=== PATIENT | male | born 1980 | race Two or more races ===

== ENCOUNTER 2024-05-11 13:29 | Inpatient (IN) | payer OTHER ==
[~2024-05-11] VITALS: Ht 180.3 cm; Wt 107.9 kg
--- NOTE | 2024-05-11 15:48 | DVH ---
CHEST RADIOGRAPH Indication: Shortness a breath Technique: Single frontal view of the chest was obtained Comparison: None FINDINGS: Lines and Tubes: None Lungs: No focal consolidation. Pleura: No effusion. No pneumothorax. Cardiomediastinal contours: Unremarkable Bones: No acute osseous abnormality. IMPRESSION: No acute cardiopulmonary disease.
--- NOTE | 2024-05-11 15:58 | DVH ---
Exam: CT CT AB PEL WO CON-NO ORAL OR IV History: Diffuse abdominal pain Comparison Study: None available at time of dictation. TECHNIQUE: Multidetector CT of the abdomen was performed from lung bases to pubic symphysis. Imaging was performed without IV contrast. Axial, coronal and sagittal multiplanar reformats were obtained fr om the axial data set by the technologist. Radiation Dose Information: CT Dose: CTDI volume is 19.57 mGy. Dose-length product is 1019.73 mGy*cm FINDINGS: Evaluation of solid organs is limited due to lack of intravenous contrast use. Findings: Lung Bases: No acute or significant lung base finding. Normal heart size. No pleural or pericardial effusion. Liver: The liver is normal in size. No focal lesions. Gallbladder and Biliary Tree: Gallbladder is surgically absent with metallic clips in the gallbladder fossa. Spleen: Unremarkable Pancreas: The pancreas is grossly normal in appearance. Adrenal Glands: Unremarkable Kidneys: Kidneys are grossly normal without calculi or hydronephrosis. Bladder: Grossly unremarkable for degree of distention. Bowel: The stomach is grossly normal in appearance. Scattered segmental regions of wall thickening th roughout the colon. The appendix is normal. Ascites: Absent Lymphadenopathy: Numerous prominent right lower quadrant lymph nodes. Abdominal Wall and Mesentery: Unremarkable. Vasculature: The visualized abdominal aorta is normal in size and caliber. Evaluation of abdominal a nd pelvic vessels is limited due to lack of intravenous contrast. Pelvic Organs: Unremarkable Musculoskeletal: No aggressive focal bony lesions, acute fractures or dislocation. Soft tissues: Unremarkable IMPRESSION: 1. Scattered regions of segmental wall thickening throughout the colon. May be due to colitis versus incomplete distention. 2. Prominent right lower quadrant lymph nodes, could be reactive to previously questioned colitis, or could represent mesenteric adenitis. 3. Normal appendix. 4. Status post cholecystectomy. Radiation optimization: All CT scans at this facility use at least one of these dose optimization te chniques: automated exposure control mA and/or kV adjustment per patient size (includes targeted exa ms where dose is matched to clinical indication) or iterative reconstruction. HS:Y
[2024-05-11 16:00] LABS: Hematocrit 42.7 % (41.0-53.0); Hemoglobin 15.2 g/dL (13.5-17.5); Mean Corpuscular Hgb Conc. 35.6 g/dL (32.0-36.0); Mean Corpuscular Volume 87.2 fL (80.0-100.0); Platelet Count (auto) 82 10^3/uL (140-450); Red Cell Distribution Width 13.7 % (11.8-14.3); White Blood Cell 27.6 10^3/uL (4.4-10.8)
[2024-05-11 16:04] LABS: Basophils % (manual) 0 (0.0-2.0); Blast Cells 0; Eosinophils % (manual) 0 (0-7); Myelocytes % 0; Promyelocytes % 0; Reactive Lymphocytes 0
[2024-05-11] MEDS: ONDANSETRON ODT 4 MG TAB PO ONE (16:08)
[2024-05-11] MEDS: DICYCLOMINE HCL (10MG/ML) 2 ML AMPULE IM ONE (16:09)
[2024-05-11 16:22] LABS: Alanine Aminotransferase 73 U/L (7-40); Albumin 4.7 g/dL (3.2-4.8); Alkaline Phosphatase 79 U/L (46-116); Anion Gap 10 (5-15); Aspartate Aminotransferase 56 U/L (13-40); BUN/Creatinine Ratio 10.4 (10.0-20.0); Bilirubin, Total 0.7 mg/dL (0.2-1.0); Blood Urea Nitrogen 11 mg/dL (9-23); Calcium 9.7 mg/dL (8.7-10.4); Carbon Dioxide 21 mmol/L (20-31); Chloride 107 mmol/L (98-107); Glucose 86 mg/dL (74-106); Lipase 28 U/L (12-53); Potassium 4.2 mmol/L (3.5-5.1); Sodium 138 mmol/L (136-145)
[2024-05-11 16:23] LABS: Total Protein 7.3 g/dL (5.7-8.2)
[2024-05-11 17:12] LABS: Band Neutrophils % (manual) 8; Large Platelets FEW; Lymphocytes % (manual) 16 (10.0-50.0); Metamyelocytes % 2; Monocytes % (manual) 58 (0-12); Platelet Estimate Decrea
[2024-05-11 19:45] LABS: Urine Bacteria None Seen /hpf (None Seen)
[2024-05-11 19:56] LABS: Urine Blood Negative /uL (Negative); Urine Clarity Clear (Clear); Urine Color Yellow (Yellow); Urine Protein, UAD TRACE (Negative); Urine Specific Gravity 1.014 (1.001-1.035); Urine Urobilinogen Normal (Negative); Urine WBC 4 /hpf (0 - 3); Urine pH 5.5 (5.0-9.0)
--- NOTE | 2024-05-11 20:39 | ED.PDOC ---
GI ASSESSMENT HPI Comments This patient is a obese 44-year-old male who arrives to the ED today for evaluation of abdominal pain and shortness a breath concerns for past week. Patient states he was seen at another facility five days ago and diagnosed with a gastritis and sent home with antibiotics. Patient states he has been using the antibiotics as directed but his symptoms have not improved. Patient arrives presenting in moderate pain. Patient denies any fever or vomiting, but states intermittent nausea. Patient's vital signs were stable on arrival. Chief Complaint: General Weakness Time Seen by MD: 15:03 Reviewed Notes: Nurses Notes Allergies: Coded Allergies: NO KNOWN ALLERGIES (Unverified , 05/11/24) Information Source: Patient Mode of Arrival: Ambulatory Timing: Days Duration: Since onset Prehospital treatment: Treatment Quality: Aching, Cramping, Sharp Severity: Severe Recent: Other (Diagnosed with a gastritis) Recent Hx of: Other (Gastritis) Pain Location: Diffuse, Epigastric, Periumbilical Associated sign and symptoms: Nausea, Abdominal Pain Past Medical History PAST MEDICAL HISTORY: Denies Surgical History: Denies all surgeries Family History Family History: Reviewed,noncontributory to illness, No family hx of Cancer, No family hx of DM, No family hx of Heart ulises, No family hx of HTN, No family hx ofKidney ulises, No family hx of Liver ulises, No family hx of Lung ulises, No family hx of Stroke Social History Smoker: Non-Smoker Alcohol: Denies ETOH Use Drugs: Denies Drug Use Lives In: Home Constitutional: denies: chills, diaphoresis, fatigue, fever, malaise, sweats, weakness, others EENTM: denies: blurred vision, double vision, ear bleeding, ear discharge, ear drainage, ear pain, ear ringing, eye pain, eye redness, hearing loss, mouth pain, mouth swelling, nasal discharge, nose bleeding, nose congestion, nose pain, photophobia, tearing, throat pain, throat swelling, voice changes, others Respiratory: reports: shortness of breath; denies: cough, hemoptysis, orthopnea, SOB at rest, SOB with excertion, stridor, wheezing, others Cardiovascular: denies: chest pain, dizzy spells, diaphoresis, Dyspnea on exer tion, edema, irregular heart beat, left arm pain, lightheadedness, palpitations, PND, syncope, others Gastrointestinal: reports: abdominal pain, nausea; denies: abdomen distended, blood streaked bowels, constipated, diarrhea, dysphagia, difficulty swallowing, hematemesis, melena, poor appetite, poor fluid intake, rectal bleeding, rectal pain, vomiting, others Genitourinary: denies: burning, dysuria, flank pain, frequency, hematuria, incontinence, penile discharge, penile sore, pain, testicle pain, testicle swelling, urgency, others Neurological: denies: dizziness, fainting, headache, left sided numbness, left sided weakness, numbness, paresthesia, pre-existing deficit, right sided numbness, right sided weakness, seizure, speech problems, tingling, tremors, weakness, others Musculoskeletal: denies: back pain, gout, joint pain, joint swelling, muscle pain, muscle stiffness, neck pain, others Integumetry: denies: bruises, change in color, change in hair/nails, dryness, laceration, lesions, lumps, rash, wounds, others Allergic/Immunocompromised: denies: Difficulty Healing, Frequent Infections, Hives, Itching, others Hematologic/Lymphatic: denies: anemia, blood clots, easy bleeding, easy bruising, swollen glands, others Endocrine: denies: excessive hunger, excessive sweating, excessive thirst, excessive urination, flushing, intolerance to cold, intolerance to heat, unexplained weight gain, unexplained weight loss, others Psychiatric: denies: anxiety, bipolar disorder, depression, hopeless, panic disorder, schizophrenia, sleepless, suicidal, others Physical Exam General Appearance: Moderate Distress (Moderate distress due to abdominal pain concerns.), Obese HEENT: Normal ENT Inspection, Pharynx Normal, TMs Normal Neck: Full Range of Motion, Non-Tender, Normal, Normal Inspection Respiratory: Chest Non-Tender, Lungs Clear, No Accessory Muscle Use, No Respiratory Distress, Normal Breath Sounds, Other (Auscultation bilateral lung escalera was unremarkable.) Cardiovascular: No Edema, No JVD, No Murmur, No Gallop, Normal Peripheral Pulses, Regular Rate/Rhythm Breast Exam: Deferred Gastrointestinal: Other (Diffuse periumbilical and epigastric tenderness to palpation throughout. No pulsatile masses noted. No signs of trauma. Abdomen was mildly rigid.) Genitalia: Deferred Pelvic: Deferred Rectal: Deferred Extremities: No calf tenderness, Normal capillary refill, Normal inspection, Normal range of motion, Non-tender, No pedal edema Neurologic: Alert, No Motor Deficits, Normal Affect, Normal Mood, No Sensory Deficits Cerebellar Function: Normal Reflexes: Normal Skin: Dry, Normal Color, Warm Lymphatic: No Adenopathy Was a procedure done? Was a procedure done?: No GI differential Dx Differential Diagnosis: Bowel Obstruction, Cholangitis, Cholecystitis, Constipation, Gastritis/PUD, Gastroenteritis, Pancreatitis, UTI X-Ray, Labs, Meds, VS Vital Signs Date Time Temp Pulse Resp B/P (MAP) Pulse Ox O2 Delivery O2 Flow Rate FiO2 05/11/24 16:46 96 18 98 Room Air 05/11/24 16:46 98.0 96 19 143/89 (107) 98 98.0 05/11/24 13:51 97.0 93 20 140/91 (107) 98 Lab Test 05/11/24 19:20 05/11/24 14:40 Range/Units Urine Color Yellow Yellow Urine Clarity Clear Clear Urine pH 5.5 5.0-9.0 Urine Specific Mobile 1.014 1.001-1.035 Urine Protein Trace H Negative Urine Ketones 2+ H Negative Urine Blood Negative Negative /uL Urine Nitrite Negative Negative Urine Bilirubin Negative Negative Urine Urobilinogen Normal Negative mg/dL Urine Leukocyte Esterase Negative Negative /uL Urine RBC <1 0 - 3 /hpf Urine WBC 4 0 - 3 /hpf Urine Squamous Epithelial Cells Few <5 /hpf Urine Bacteria None seen None Seen /hpf Urine Glucose Normal Normal mg/dL White Blood Count 27.6 H 4.4-10.8 10^3/uL Red Blood Count 4.90 4.5-5.90 10^6/uL Hemoglobin 15.2 13.5-17.5 g/dL Hematocrit 42.7 41.0-53.0 % Mean Corpuscular Volume 87.2 80.0-100.0 fL Mean Corpuscular Hemoglobin 31.0 28.0-32.0 pg Mean Corpuscular Hemoglobin Concent 35.6 32.0-36.0 g/dL Red Cell Distribution Width 13.7 11.8-14.3 % Platelet Count 82 L 140-450 10^3/uL Mean Platelet Volume 8.8 6.9-10.8 fL Neutrophils (%) (Auto) 37.0-80.0 % Lymphocytes (%) (Auto) 10.0-50.0 % Monocytes (%) (Auto) 0.0-12.0 % Basophils (%) (Auto) 0.0-2.0 % Neutrophils # (Auto) 1.6-8.6 10 ^3/uL Lymphocytes # (Auto) 0.4-5.4 10 ^3/uL Monocytes # (Auto) 0-1.3 10 ^3/uL Differential Total Cells Counted 100.0 100 Neutrophils % (Manual) 16 L 37.0-80.0 Band Neutrophils % (Manual) 8 Lymphocytes % (Manual) 16 10.0-50.0 Monocytes % (Manual) 58 H 0-12 Eosinophils % (Manual) 0 0-7 Basophils % (Manual) 0 0.0-2.0 Metamyelocytes % (manual) 2 Myelocytes % (Manual) 0 Promyelocytes % (Manual) 0 Blast Cells % (Manual) 0 Reactive Lymphocytes 0 Platelet Estimate Decrea Large Platelets Few Sodium Level 138 136-145 mmol/L Potassium Level 4.2 3.5-5.1 mmol/L Chloride Level 107 98-107 mmol/L Carbon Dioxide Level 21 20-31 mmol/L Anion Gap 10 5-15 Blood Urea Nitrogen 11 9-23 mg/dL Creatinine 1.06 0.700-1.30 mg/dL Glomerular Filtration Rate Calc 89 >90 mL/min BUN/Creatinine Ratio 10.4 10.0-20.0 Serum Glucose 86 74-106 mg/dL Calcium Level 9.7 8.7-10.4 mg/dL Total Bilirubin 0.7 0.2-1.0 mg/dL Aspartate Amino Transferase (AST) 56 H 13-40 U/L Alanine Aminotransferase (ALT) 73 H 7-40 U/L Alkaline Phosphatase 79 46-116 U/L Troponin I High Sensitivity 6 </=54 ng/L B-Type Natriuretic Peptide 20.24 0-100 pg/mL Total Protein 7.3 5.7-8.2 g/dL Albumin 4.7 3.2-4.8 g/dL Lipase 28 12-53 U/L Current Medications Medications (Trade) Dose Ordered Sig/Kurt Route Start Time Stop Time Status Last Admin Dicyclomine HCl (Bentyl Injection) 20 mg ONCE ONCE IM 05/11/24 15:15 05/11/24 15:16 DC 05/11/24 16:09 Ondansetron HCl (Zofran Po) 4 mg ONCE ONCE PO 05/11/24 15:15 05/11/24 15:16 DC 05/11/24 16:08 X-Ray, Labs, Meds, VS Comment All studies performed in the ED were evaluated by me personally. EKG revealed a sinus rhythm with a rate of 82. Borderline short TN interval as well as left ventricular hypertrophy noted. TN interval of 110 and QT interval of 399. Serum laboratories remarkable [place] [address]+. Additionally noted was some thrombocytopenia. Chest x-ray was unremarkable for any acute cardiopulmonary process. No consolidation noted. CT of the abdomen and pelvis showed some segmental wall thickening throughout the colon which may be due to colitis. Additional prominent right lower quadrant lymph nodes which may represent a mesenteric adenitis. Due to the patient's on source pain concerns as well as his elevated white blood cell count and failure of the antibiotic of choice to be effective, patient will be admitted for IV antibiotics and continued management. Time of 1ST Reevaluation: 20:33 Reevaluation 1ST: Improved Consultation: PCP Patient Education/Counseling: Diagnosis, Treatment Family Education/Counseling: Diagnosis, Treatment Departure 1 Departure Time of Disposition: 20:38 Impression: Primary Impression: Leukocytosis Additional Impressions: Thrombocytopenia Abdominal pain Disposition: ADMITTED INPATIENT Condition: Stable Discharged With: Self, Friend Critical Care Note Critical Care Time?: No Stability Stability form required: No Heart Score Heart Score: Heart Score Response (Comments) Value History Slightly Suspicious 0 EKG Repolarization Disturb 1 Age <45 0 Risk Factors No known risk factors 0 Troponin Normal limit 0 Total 1 BRANDO MALDONADO PAC May 11, 2024 20:39
[2024-05-11 21:25] VITALS: PULSE 110; RESP 22; O2SAT 98
[2024-05-11] MEDS: ONDANSETRON HCL 4 MG/2 ML VIAL IV PRN (21:27)
[2024-05-11] MEDS: MORPHINE SULFATE INJ 2 MG/ml SYRG IV PRN (21:29)
[2024-05-11] MEDS: SODIUM CHLORIDE 0.9% 1,000 ML IV SCH (21:29)
[2024-05-11] MEDS: PIPERACILLIN-TAZOB 3.375GM 100 ML IV ONE (21:29)
[2024-05-11] MEDS: metroNIDAZOLE 500MG/100ML 100 ML IV SCH (22:07)
--- NOTE | 2024-05-11 22:57 | DVHHP2 ---
History of Present Illness Reason for Visit: Generalized weakness History of Present Illness The patient is a 44-year-old male who denies past medical history presented to [facility] ED with complaint of abdominal pain. Patient reports symptoms progressively get worse with generalized weakness, shortness of breath, nausea, getting worse today that prompted this visit. Patient reports he was seen at another facility five days ago and diagnosed with a gastritis and sent home with antibiotics. Patient states he has been on the antibiotics as directed but his symptoms have not improved. Patient was seen and evaluated in the ED, laboratory data shows elevated WBC 27.6, platelets 18656, sodium 138, potassium 4.2, BUN 11, creatinine 1.06, glucose 86, AST 56, ALT 73, troponin 6, lipase 28, blood pressure 143/89, heart rate 96, temperature 98.0 F, O2 saturation 98% on oxygen. Abdomen/pelvic CT revealing scattered regions of segmental wall thickening throughout the colon, may be due to colitis versus incomplete distention; status post cholecystectomy. Patient was started on IV antibiotic regimen Flagyl, please see medication orders section in the computer. On my assessment, patient denied chest pain, no headache, no dizziness, no diaphoresis, no shortness of breath, no abdominal pain, no nausea, no vomiting, no fever, no chills. Patient was admitted for further evaluation and medical management. Past Medical History Denies past medical history Past Surgical History Cholecystectomy Family History Reviewed, noncontributory to the management of this case. Past Social History The patient lives at home, denies smoking, alcohol or illicit drugs abuse. Review of Systems Constitutional: Yes: Weakness; No: Fever, Chills, Sweats, Malaise, Other Eyes: No: Pain, Vision change, Conjunctivae inflammation, Eyelid inflammation, Other, Redness ENT: No: Ear pain, Ear discharge, Nose pain, Nose discharge, Nose congestion, Mouth pain, Mouth swelling, Throat pain, Throat swelling, Other Respiratory: Shortness of breath; No: Cough, Dry, SOB with excertion, Wheezing, Hemoptysis, Pleuritic Pain, Sputum, Wheezing, Other Cardiovascular: No: Chest Pain, Palpitations, Orthopnea, Paroxysmal Noc. Dyspnea, Edema, Lt Headedness, Other Gastrointestinal: Nausea, Abdominal Pain; No: Vomiting, Diarrhea, Constipation, Melena, Hematochezia, Other Genitourinary: No Dysuria, No Frequency, No Incontinence, No Hematuria, No Retention, No Other Musculoskeletal: No: other, neck pain, shoulder pain, arm pain, back pain, hand pain, leg pain, foot pain Skin: No: Rash, Lesions, Jaundice, Bruising, Other Neurological: No: Weakness, Numbness, Incoordination, Change in speech, Confusion, Seizures, Other Allergies: Coded Allergies: NO KNOWN ALLERGIES (Unverified , 05/11/24) Medications Current Medications Medications Dose Ordered Sig/Kurt Route Start Time Stop Time Status Last Admin Dose Admin Ceftriaxone Sodium 50 ml @ 100 mls/hr DAILY@09 IV 05/12/24 09:00 Metronidazole 100 ml @ 100 mls/hr Q8HR IV 05/11/24 22:00 05/11/24 22:07 100 MLS/HR Ibuprofen 600 mg Q6HP PRN PO 05/11/24 21:00 Sodium Chloride 1,000 ml @ 60 mls/hr [id number] IV 05/11/24 21:00 05/11/24 21:29 60 MLS/HR Acetaminophen/ Hydrocodone Bitart 1 tab Q4HP PRN PO 05/11/24 21:00 Ondansetron HCl 4 mg Q4HP PRN IV 05/11/24 21:00 05/11/24 21:27 4 MG Docusate Sodium 100 mg BIDPRN PRN PO 05/11/24 21:00 Morphine Sulfate 2 mg Q4HPRN PRN IV 05/11/24 21:00 05/11/24 21:29 2 MG Exam Vital Signs Vital Signs Date Time Temp Pulse Resp B/P (MAP) Pulse Ox O2 Delivery O2 Flow Rate FiO2 05/11/24 22:07 88 20 143/89 05/11/24 21:25 98.6 98 98.6 05/11/24 21:25 Room Air* 0 21 General Appearance: Alert, Oriented X3, Cooperative, No acute distress HEENT: Atraumatic, PERRLA, EOMI, Mucous membr. moist/pink Respiratory: Clear to auscultation, Normal air movement Cardiovascular: Regular rate, Normal S1, Normal S2, No murmurs Abdominal: Normal bowel sounds, Soft, No hepatospenomegaly, No masses, Other (Reports tenderness) Extremities: No clubbing, No cyanosis, No edema, Normal pulses, No tenderness/swelling Skin: No rashes, No breakdown, No significant lesion Neuro: Normal speech, Normal tone, Sensation intact, Cranial nerves 3-12 NL, Reflexes 2+, Other (Generalized weakness) Psych/Mental Status: Mental status NL, Mood NL Labs/Xrays Labs Test 05/11/24 19:20 05/11/24 14:40 Range/Units Urine Color Yellow Yellow Urine Clarity Clear Clear Urine pH 5.5 5.0-9.0 Urine Specific [place] 1.014 1.001-1.035 Urine Protein Trace H Negative Urine Ketones 2+ H Negative Urine Blood Negative Negative /uL Urine Nitrite Negative Negative Urine Bilirubin Negative Negative Urine Urobilinogen Normal Negative mg/dL Urine Leukocyte Esterase Negative Negative /uL Urine RBC <1 0 - 3 /hpf Urine WBC 4 0 - 3 /hpf Urine Squamous Epithelial Cells Few <5 /hpf Urine Bacteria None seen None Seen /hpf Urine Glucose Normal Normal mg/dL White Blood Count 27.6 H 4.4-10.8 10^3/uL Red Blood Count 4.90 4.5-5.90 10^6/uL Hemoglobin 15.2 13.5-17.5 g/dL Hematocrit 42.7 41.0-53.0 % Mean Corpuscular Volume 87.2 80.0-100.0 fL Mean Corpuscular Hemoglobin 31.0 28.0-32.0 pg Mean Corpuscular Hemoglobin Concent 35.6 32.0-36.0 g/dL Red Cell Distribution Width 13.7 11.8-14.3 % Platelet Count 82 L 140-450 10^3/uL Mean Platelet Volume 8.8 6.9-10.8 fL Neutrophils (%) (Auto) 37.0-80.0 % Lymphocytes (%) (Auto) 10.0-50.0 % Monocytes (%) (Auto) 0.0-12.0 % Basophils (%) (Auto) 0.0-2.0 % Neutrophils # (Auto) 1.6-8.6 10 ^3/uL Lymphocytes # (Auto) 0.4-5.4 10 ^3/uL Monocytes # (Auto) 0-1.3 10 ^3/uL Differential Total Cells Counted 100.0 100 Neutrophils % (Manual) 16 L 37.0-80.0 Band Neutrophils % (Manual) 8 Lymphocytes % (Manual) 16 10.0-50.0 Monocytes % (Manual) 58 H 0-12 Eosinophils % (Manual) 0 0-7 Basophils % (Manual) 0 0.0-2.0 Metamyelocytes % (manual) 2 Myelocytes % (Manual) 0 Promyelocytes % (Manual) 0 Blast Cells % (Manual) 0 Reactive Lymphocytes 0 Platelet Estimate Decrea Large Platelets Few Sodium Level 138 136-145 mmol/L Potassium Level 4.2 3.5-5.1 mmol/L Chloride Level 107 98-107 mmol/L Carbon Dioxide Level 21 20-31 mmol/L Anion Gap 10 5-15 Blood Urea Nitrogen 11 9-23 mg/dL Creatinine 1.06 0.700-1.30 mg/dL Glomerular Filtration Rate Calc 89 >90 mL/min BUN/Creatinine Ratio 10.4 10.0-20.0 Serum Glucose 86 74-106 mg/dL Calcium Level 9.7 8.7-10.4 mg/dL Total Bilirubin 0.7 0.2-1.0 mg/dL Aspartate Amino Transferase (AST) 56 H 13-40 U/L Alanine Aminotransferase (ALT) 73 H 7-40 U/L Alkaline Phosphatase 79 46-116 U/L Troponin I High Sensitivity 6 </=54 ng/L B-Type Natriuretic Peptide 20.24 0-100 pg/mL Total Protein 7.3 5.7-8.2 g/dL Albumin 4.7 3.2-4.8 g/dL Lipase 28 12-53 U/L PATIENT: ROSA THORPEACCT: [id number] UNIT: [id number] : 1980 LOC: ER ROOM / BED: / AGE / SEX: 44 / M ADM STATUS: REG ER SERVICE 1509 ORDERING PHYSICIAN: BRANDO MALDONADO PAC PROCEDURE(s): ABPL - CT AB PEL WO CON-NO ORAL OR IV REASON: Diffuse abdominal pain ORDER NUMBER(s): [id number], ACCESSION NUMBER(s): [id number] Exam: CT CT AB PEL WO CON-NO ORAL OR IV History: Diffuse abdominal pain Comparison Study: None available at time of dictation. TECHNIQUE: Multidetector CT of the abdomen was performed from lung bases to pubic symphysis. Imaging was performed without IV contrast. Axial, coronal and sagittal multiplanar reformats were obtained from the axial data set by the technologist. Radiation Dose Information: CT Dose: CTDI volume is 19.57 mGy. Dose-length product is 1019.73 mGy*cm FINDINGS: Evaluation of solid organs is limited due to lack of intravenous contrast use. Findings: Lung Bases: No acute or significant lung base finding. Normal heart size. No ple ural or pericardial effusion. Liver: The liver is normal in size. No focal lesions. Gallbladder and Biliary Tree: Gallbladder is surgically absent with metallic clips in the gallbladder fossa. Spleen: Unremarkable Pancreas: The pancreas is grossly normal in appearance. Adrenal Glands: Unremarkable Kidneys: Kidneys are grossly normal without calculi or hydronephrosis. Bladder: Grossly unremarkable for degree of distention. Bowel: The stomach is grossly normal in appearance. Scattered segmental regions of wall thickening throughout the colon. The appendix is normal. Ascites: Absent Lymphadenopathy: Numerous prominent right lower quadrant lymph nodes. Abdominal Wall and Mesentery: Unremarkable. Vasculature: The visualized abdominal aorta is normal in size and caliber. Evaluation of abdominal and pelvic vessels is limited due to lack of intravenous contrast. Pelvic Organs: Unremarkable Musculoskeletal: No aggressive focal bony lesions, acute fractures or dislocation. Soft tissues: Unremarkable IMPRESSION: 1. Scattered regions of segmental wall thickening throughout the colon. May be due to colitis versus incomplete distention. 2. Prominent right lower quadrant lymph nodes, could be reactive to previously questioned colitis, or could represent mesenteric adenitis. 3. Normal appendix. 4. Status post cholecystectomy. ORDERING PHYSICIAN: BRANDO MALDONADO PAC PROCEDURE(s): CXRP - CHEST PORTABLE REASON: Shortness a breath ORDER NUMBER(s): [id number], ACCESSION NUMBER(s): [id number] CHEST RADIOGRAPH Indication: Shortness a breath Technique: Single frontal view of the chest was obtained Comparison: None FINDINGS: Lines and Tubes: None Lungs: No focal consolidation. Pleura: No effusion. No pneumothorax. Cardiomediastinal contours: Unremarkable Bones: No acute osseous abnormality. IMPRESSION: No acute cardiopulmonary disease. Assessment/Plan Assessment/Plan Leukocytosis, unspecified Thrombocytopenia Abdominal pain Generalized weakness Plan 1. Admit to med surge unit 2. Breathing treatment 3. Pain control management 4. IV antibiotic management 5. Management of fluids and electrolytes 6. Consultation for hospitalist 7. Diagnostic test abdomen/pelvis CT 8. DVT prophylaxis-on SCDs 9. Repeat labs CBC, CMP in a.m. 10. Home medication reviewed and reconciled 11. Continue with current medical management 12. Treatment plan discussed with patient and RN. Patient verbalized understanding. Plan discussed with: Patient, Other (RN) My Orders Orders - SERA SPICER DNP Procedure Category Date Status Time Blood Culture CHIQUITA 05/11/24 In Process 20:49 Ceftriaxone 1gm/50ml PHA 05/12/24 In Process D5w (Rocephin) 09:00 Ibuprofen Tablet PHA 05/11/24 In Process (Motrin Tablet) 21:00 Allergies ESTEFANY 05/11/24 In Process 20:49 Code Status CODE 05/11/24 Transmitted 20:49 Sodium Chloride 0.9% PHA 05/11/24 In Process 21:00 Oxygen Per Hour RT 05/11/24 Transmitted 20:49 Hydrocodone-Acet PHA 05/11/24 In Process 5/325mg Tab ([place] 21:00 Ondansetron Hcl PHA 05/11/24 In Process (Zofran) 21:00 Docusate Sodium PHA 05/11/24 In Process Capsule (Colace 21:00 Complete Blood Count LAB 05/12/24 Verified 04:00 Comprehensive LAB 05/12/24 Verified Metabolic Panel 04:00 Cardiac DIET 05/12/24 Transmitted Diet-2gna,Lofat,Lochol Breakfast Condition: Serious ESTEFANY 05/11/24 In Process 20:49 Bedrest With Bathroom ESTEFANY 05/11/24 In Process Privileg 20:49 Morphine Sulfate PHA 05/11/24 In Process Injection 21:00 Sequential ESTEFANY 05/11/24 In Process Compression Device Metronidazole PHA 05/11/24 In Process 500mg/100ml (Flagyl 22:00 Admit ADMIT 05/11/24 Verified 22:54 Nitroglycerin PHA 05/11/24 Verified Sublingual (Ntrostat 23:00 Morphine Sulfate PHA 05/11/24 Verified Injection 23:00 Notify Of Changes ESTEFANY 05/11/24 Verified From Base 22:54 Emergency Dysrhythmia ESTEFANY 05/11/24 Verified Protocol 22:54 Oxygen By Nasal RT 05/11/24 Verified Cannula 22:54 Problem List: (1) Leukocytosis, unspecified (2) Abdominal pain (3) Thrombocytopenia (4) Generalized weakness Date of Service: May 11, 2024 Billing Provider: SERA SPICER DNP Common Visit Codes: [id number] INP/OBS CARE (HIGH) SERA SPICER DNP May 11, 2024 22:57
[2024-05-11] MEDS ORDERED: MORPHINE SULFATE INJ 2 MG/ml SYRG IV PRN (23:00)
[2024-05-11] MEDS ORDERED: NITROGLYCERIN 0.4 MG SL TAB SL PRN (23:00)
[2024-05-12] VITALS (10 sets, daily range): BP systolic 105–128; BP diastolic 55–78; PULSE 71–86; RESP 18–22; TEMP 97.6–98.7; O2SAT 94–99
[2024-05-12] MEDS: HYDROcodone-ACET 5/325MG TAB PO PRN (03:49)
[2024-05-12] MEDS ORDERED: IBUP-1454 PO (06:11)
[2024-05-12] MEDS ORDERED: AMOX875T4 PO (06:13)
--- NOTE | 2024-05-12 06:45 | ECG ---
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
[2024-05-12] MEDS: cefTRIAXone 1GM/50ML D5W 50 ML IV SCH (09:22)
[2024-05-12 09:30] LABS: Hematocrit 43.5 % (41.0-53.0); Mean Corpuscular Hgb Conc. 34.4 g/dL (32.0-36.0); Platelet Count (auto) 65 10^3/uL (140-450); White Blood Cell 19.6 10^3/uL (4.4-10.8)
[2024-05-12 09:37] LABS: Alanine Aminotransferase 122 U/L (7-40); Albumin 4.3 g/dL (3.2-4.8); Alkaline Phosphatase 107 U/L (46-116); Anion Gap 8 (5-15); Aspartate Aminotransferase 85 U/L (13-40); BUN/Creatinine Ratio 6.3 (10.0-20.0); Blood Urea Nitrogen 8 mg/dL (9-23); Calcium 9.3 mg/dL (8.7-10.4); Carbon Dioxide 22 mmol/L (20-31); Chloride 110 mmol/L (98-107); Glucose 120 mg/dL (74-106); Sodium 140 mmol/L (136-145)
[2024-05-12 09:38] LABS: Bilirubin, Total 0.6 mg/dL (0.2-1.0); Total Protein 7.1 g/dL (5.7-8.2)
[2024-05-12 09:51] LABS: Basophils % (manual) 0 (0.0-2.0); Blast Cells 0; Metamyelocytes % 0; Myelocytes % 0; Promyelocytes % 0; Reactive Lymphocytes 0
[2024-05-12 11:46] LABS: Band Neutrophils % (manual) 3; Eosinophils % (manual) 2 (0-7); Lymphocytes % (manual) 17 (10.0-50.0); Monocytes % (manual) 60 (0-12)
[2024-05-12 11:47] LABS: Platelet Estimate Decreased
--- NOTE | 2024-05-12 13:05 | DVHPN2 ---
Reviewed: Care Plan, H&P, Labs, Medications, Previous Orders, Radiology Changes from previous H/P or p: No Changes Eyes: No Pain, No Vision change, No Conjunctivae inflammation, No Eyelid inflammation, No Other, No Redness ENT: No Ear pain, No Ear discharge, No Nose pain, No Nose discharge, No Nose congestion, No Mouth pain, No Mouth swelling, No Throat pain, No Throat swelling, No Other Cardiovascular: No Chest Pain, No Palpitations, No Orthopnea, No Paroxysmal Noc. Dyspnea, No Edema, No Lt Headedness, No Other Respiratory: No Cough, No Dry; Shortness of breath; No SOB with excertion, No Wheezing, No Hemoptysis, No Pleuritic Pain, No Sputum, No Other Gastrointestinal: Nausea; No Vomiting; Abdominal Pain; No Diarrhea, No Constipation, No Melena, No Hematochezia, No Other Genitourinary: No Dysuria, No Frequency, No Incontinence, No Hematuria, No Retention, No Other Musculoskeletal: No other, No neck pain, No shoulder pain, No arm pain, No back pain, No hand pain, No leg pain, No foot pain Skin: No Rash, No Lesions, No Jaundice, No Bruising, No Other Objective Vitals Vital Signs Date Time Temp Pulse Resp B/P (MAP) Pulse Ox O2 Delivery O2 Flow Rate FiO2 05/12/24 11: 79 18 128/59 05/12/24 09:00 98.7 94 98.7 05/12/24 03:16 Room Air* 0 21 Intake/Output Intake and Output 05/12/24 07:00 Intake Total 780 ml Balance 780 ml Intake Oral 400 ml IV Total 380 ml # Voids 1 Medications Current Medications Medications Dose Ordered Sig/Kurt Route Start Time Stop Time Status Last Admin Dose Admin Ceftriaxone Sodium 50 ml @ 100 mls/hr DAILY@09 IV 05/12/24 09:00 05/12/24 09:22 100 MLS/HR Metronidazole 100 ml @ 100 mls/hr Q8HR IV 05/11/24 22:00 05/12/24 06:31 100 MLS/HR Ibuprofen 600 mg Q6HP PRN PO 05/11/24 21:00 Sodium Chloride 1,000 ml @ 60 mls/hr [id number] IV 05/11/24 21:00 05/12/24 04:04 60 MLS/HR Acetaminophen/ Hydrocodone Bitart 1 tab Q4HP PRN PO 05/11/24 21:00 05/12/24 08:55 1 TAB Ondansetron HCl 4 mg Q4HP PRN IV 05/11/24 21:00 05/11/24 21:27 4 MG Docusate Sodium 100 mg BIDPRN PRN PO 05/11/24 21:00 Morphine Sulfate 2 mg Q4HPRN PRN IV 05/11/24 21:00 05/12/24 11:22 2 MG Nitroglycerin 0.4 mg Q5MINP PRN SL 05/11/24 23:00 Morphine Sulfate 2 mg Q30M PRN IV 05/11/24 23:00 Laboratory Results Laboratory Tests 05/12/24 08:54 Chemistry Test 05/11/24 14:40 05/12/24 08:54 Albumin 4.7 g/dL (3.2-4.8) 4.3 g/dL (3.2-4.8) Calcium Level 9.7 mg/dL (8.7-10.4) 9.3 mg/dL (8.7-10.4) Total Protein 7.3 g/dL (5.7-8.2) 7.1 g/dL (5.7-8.2) Lipid panel Test 05/11/24 14:40 Lipase 28 U/L (12-53) Cardiac Markers Test 05/11/24 14:40 B-Type Natriuretic Peptide 20.24 pg/mL (0-100) LFT Test 05/11/24 14:40 05/12/24 08:54 Alanine Aminotransferase (ALT) 73 U/L (7-40) H 122 U/L (7-40) H Alkaline Phosphatase 79 U/L (46-116) 107 U/L (46-116) Aspartate Amino Transferase (AST) 56 U/L (13-40) H 85 U/L (13-40) H Total Bilirubin 0.7 mg/dL (0.2-1.0) 0.6 mg/dL (0.2-1.0) Urinalysis Test 05/11/24 19:20 Urine Color Yellow (Yellow) Urine Clarity Clear (Clear) Urine pH 5.5 (5.0-9.0) Urine Specific [place] 1.014 (1.001-1.035) Urine Protein Trace (Negative) H Urine Ketones 2+ (Negative) H Urine Blood Negative /uL (Negative) Urine Nitrite Negative (Negative) Urine Bilirubin Negative (Negative) Urine Urobilinogen Normal mg/dL (Negative) Urine Leukocyte Esterase Negative /uL (Negative) Urine RBC <1 /hpf (0 - 3) Urine WBC 4 /hpf (0 - 3) Urine Squamous Epithelial Cells Few /hpf (<5) Urine Bacteria None seen /hpf (None Seen) Urine Glucose Normal mg/dL (Normal) Labs and/or images reviewed: Labs reviewed by me, Image(s) reviewed by me Assessment/Plan Assessment/Plan Severe Sepsis secondary to acute colitis blood cultures Acute Colitis: [place], GI consult by Dr. 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
--- NOTE | 2024-05-12 16:48 | DVHINCON2 ---
Date of service: May 12, [address] holland Reason for Consultation Abdominal pain diarrhea possible colitis History of Present Illness This 44-year-old male presented to the emergency room with complaints of abdominal pain in both lower quadrants severe back pain generalized weakness and diarrhea Denied any gross GI bleeding Patient was apparently seen about two weeks ago at [facility] ER for back pain of the abdominal pain and had apparently CT scan was done which showed possible colitis the details of which is not available And was sent home on antibiotics amoxicillin as per the patient for seven days. Patient fell better for couple of days after amoxicillin but then got worse apparently with severe diarrhea and abdominal cramps and hence came to this hospital Here the white count was found to be high 27.[place] [address] ALT and AST are slightly increased. 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 Family History Noncontributory Social History Noncontributory Allergies: Coded Allergies: NO KNOWN ALLERGIES (Unverified , 05/11/24) Home Meds Reported Medications Amoxicillin & Pot Clavulanate (Amoxicillin/Potassium Cla) 875 Mg Tab, 1 TAB PO BID, #20 TAB 05/12/24 Ibuprofen (Ibuprofen) 600 Mg Tab, 600 MG PO Q6HP PRN for PAIN SCALE 7 THRU 10, MG 0 Refills 05/12/24 Current Medications Current Medications Medications (Trade) Dose Ordered Sig/Kurt Route PRN Reason Start Time Stop Time Status Last Admin Ceftriaxone Sodium 50 ml @ 100 mls/hr DAILY@09 IV 05/12/24 09:00 05/12/24 09:22 Metronidazole 100 ml @ 100 mls/hr Q8HR IV 05/11/24 22:00 05/12/24 13:53 Ibuprofen (Motrin Tablet) 600 mg Q6HP PRN PO PAIN SCALE 1-3 OR TEMP>100.4 05/11/24 21:00 Sodium Chloride 1,000 ml @ 60 mls/hr [id number] IV 05/11/24 21:00 05/12/24 04:04 Acetaminophen/ Hydrocodone Bitart ([place] 5/325MG Tab) 1 tab Q4HP PRN PO MODERATE PAIN (4-6 PAIN SCALE) 05/11/24 21:00 05/12/24 13:54 Ondansetron HCl (Zofran) 4 mg Q4HP PRN IV NAUSEA / VOMITING 05/11/24 21:00 05/11/24 21:27 Docusate Sodium (Colace Capsule) 100 mg BIDPRN PRN PO FOR CONSTIPATION 05/11/24 21:00 Morphine Sulfate 2 mg Q4HPRN PRN IV SEVERE PAIN (7-10 PAIN SCALE) 05/11/24 21:00 05/12/24 11:22 Nitroglycerin (Ntrostat Sublingual) 0.4 mg Q5MINP PRN SL FOR CHEST PAIN 05/11/24 23:00 Morphine Sulfate 2 mg Q30M PRN IV FOR CHEST PAIN 05/11/24 23:00 Bisacodyl (Dulcolax EC Tablet) 5 mg BIDP PRN PO FOR CONSTIPATION 05/12/24 15:15 Review of Systems Complaints of back pain body pain generalized body pains weakness etc. no fever or other systemic symptoms nausea anorexia Vital Signs Vital Signs Date Time Temp Pulse Resp B/P (MAP) Pulse Ox O2 Delivery O2 Flow Rate FiO2 05/12/24 13:00 98.6 86 19 119/78 (92) 97 98.6 05/12/24 03:16 Room Air* 0 21 Physical Exam Built and nourished male in no acute distress very apprehensive vital signs stable HEENT examination reveals no pallor no icterus neck was supplenothyromegaly Lungs clear cardiovascular unremarkable Abdomen is soft mild nonspecific tenderness in both lower quadrants no rigidity no guarding no masses bowel sounds normal Some tenderness in the back also nonspecific Extremities no edema neurological no focal deficit Labs/Diagnostic Data Labs Test 05/12/24 08:54 05/11/24 19:20 05/11/24 14:40 Range/Units White Blood Count 19.6 #H 4.4-10.8 10^3/uL Red Blood Count 5.00 4.5-5.90 10^6/uL Hemoglobin 15.0 13.5-17.5 g/dL Hematocrit 43.5 41.0-53.0 % Mean Corpuscular Volume 87.0 80.0-100.0 fL Mean Corpuscular Hemoglobin 30.0 28.0-32.0 pg Mean Corpuscular Hemoglobin Concent 34.4 32.0-36.0 g/dL Red Cell Distribution Width 14.0 11.8-14.3 % Platelet Count 65 L 140-450 10^3/uL Mean Platelet Volume 8.4 6.9-10.8 fL Neutrophils (%) (Auto) 37.0-80.0 % Lymphocytes (%) (Auto) 10.0-50.0 % Monocytes (%) (Auto) 0.0-12.0 % Basophils (%) (Auto) 0.0-2.0 % Neutrophils # (Auto) 1.6-8.6 10 ^3/uL Lymphocytes # (Auto) 0.4-5.4 10 ^3/uL Monocytes # (Auto) 0-1.3 10 ^3/uL Differential Total Cells Counted 100.0 100 Neutrophils % (Manual) 18 L 37.0-80.0 Band Neutrophils % (Manual) 3 Lymphocytes % (Manual) 17 10.0-50.0 Monocytes % (Manual) 60 H 0-12 Eosinophils % (Manual) 2 0-7 Basophils % (Manual) 0 0.0-2.0 Metamyelocytes % (manual) 0 Myelocytes % (Manual) 0 Promyelocytes % (Manual) 0 Blast Cells % (Manual) 0 Reactive Lymphocytes 0 Platelet Estimate Decreased Sodium Level 140 136-145 mmol/L Potassium Level 4.0 3.5-5.1 mmol/L Chloride Level 110 H 98-107 mmol/L Carbon Dioxide Level 22 20-31 mmol/L Anion Gap 8 5-15 Blood Urea Nitrogen 8 L 9-23 mg/dL Creatinine 1.26 0.700-1.30 mg/dL Glomerular Filtration Rate Calc 73 >90 mL/min BUN/Creatinine Ratio 6.3 L 10.0-20.0 Serum Glucose 120 H 74-106 mg/dL Calcium Level 9.3 8.7-10.4 mg/dL Total Bilirubin 0.6 0.2-1.0 mg/dL Aspartate Amino Transferase (AST) 85 H 13-40 U/L Alanine Aminotransferase (ALT) 122 H 7-40 U/L Alkaline Phosphatase 107 46-116 U/L Creatine Kinase 222 H 46-171 U/L Total Protein 7.1 5.7-8.2 g/dL Albumin 4.3 3.2-4.8 g/dL Urine Color Yellow Yellow Urine Clarity Clear Clear Urine pH 5.5 5.0-9.0 Urine Specific [place] 1.014 1.001-1.035 Urine Protein Trace H Negative Urine Ketones 2+ H Negative Urine Blood Negative Negative /uL Urine Nitrite Negative Negative Urine Bilirubin Negative Negative Urine Urobilinogen Normal Negative mg/dL Urine Leukocyte Esterase Negative Negative /uL Urine RBC <1 0 - 3 /hpf Urine WBC 4 0 - 3 /hpf Urine Squamous Epithelial Cells Few <5 /hpf Urine Bacteria None seen None Seen /hpf Urine Glucose Normal Normal mg/dL Large Platelets Few Troponin I High Sensitivity 6 </=54 ng/L B-Type Natriuretic Peptide 20.24 0-100 pg/mL Lipase 28 12-53 U/L Assessment 44-year-old with complaints of abdominal pain as well as severe diarrhea patient had been on amoxicillin for the last few days for some possible infection in the dialysis got worse after that patient has got increased white count mild nonspecific abdominal tenderness, the chronic back pain with possible narcotic dependence status post cholecystectomy Clinical impression Severe diarrhea post possibly from C diff infection possibly from amoxicillin Possible other infectious or inflammatory bowel disease can not be excluded though less likely History chronic pain including Back pain and severe arthropathy and taking medications including narcotics at home Plan/Recommendation Stool studies for O&P C&S and C diff as soon as possible Treat with Flagyl and if necessary vancomycin will recommend an ID consult for possible C diff Follow the white count closely Symptoms persist may need further evaluation including colonoscopy etc. if necessary But for the time being we will recommend symptomatic treatment and the Flagyl for possible C diff infection Plan discussed with: Patient TJ TORRE MD May 12, 2024 16:48
[2024-05-12] MEDS: SODIUM CHLORIDE 0.9% 1,000 ML IV SCH (20:56)
[2024-05-13] VITALS (7 sets, daily range): BP systolic 107–153; BP diastolic 54–86; PULSE 60–86; RESP 17–20; TEMP 97.9–98.9; O2SAT 95–99
[2024-05-13 06:29] LABS: Red Blood Cells 4.71 10^6/uL (4.5-5.90)
[2024-05-13 06:31] LABS: Hemoglobin 14.1 g/dL (13.5-17.5); Mean Corpuscular Hgb Conc. 34.4 g/dL (32.0-36.0); Platelet Count (auto) 65 10^3/uL (140-450); Red Cell Distribution Width 13.7 % (11.8-14.3)
[2024-05-13 06:40] LABS: Alanine Aminotransferase 107 U/L (7-40); Albumin 4.1 g/dL (3.2-4.8); Alkaline Phosphatase 119 U/L (46-116); Anion Gap 11 (5-15); BUN/Creatinine Ratio 8.8 (10.0-20.0); Blood Urea Nitrogen 9 mg/dL (9-23); Calcium 9.2 mg/dL (8.7-10.4); Carbon Dioxide 20 mmol/L (20-31); Chloride 107 mmol/L (98-107); Glucose 85 mg/dL (74-106); Sodium 138 mmol/L (136-145)
[2024-05-13 06:41] LABS: Aspartate Aminotransferase 52 U/L (13-40); Bilirubin, Total 0.6 mg/dL (0.2-1.0); Total Protein 6.8 g/dL (5.7-8.2)
[2024-05-13 07:07] LABS: White Blood Cell 44.8 10^3/uL (4.4-10.8)
[2024-05-13 07:09] LABS: Basophils % (manual) 0 (0.0-2.0); Blast Cells 0; Eosinophils % (manual) 0 (0-7); Metamyelocytes % 0; Myelocytes % 0; Promyelocytes % 0; Reactive Lymphocytes 0
[2024-05-13 07:44] LABS: Band Neutrophils % (manual) 1; Lymphocytes % (manual) 66 (10.0-50.0); Monocytes % (manual) 30 (0-12)
[2024-05-13 07:45] LABS: Platelet Estimate Decreased
[2024-05-13] MEDS: IBUPROFEN 600 MG TAB PO PRN (09:10)
--- NOTE | 2024-05-13 11:05 | DVHPN2 ---
Progress Note - Dictate Date Seen: May 13, 2024 Has the PT tested + for MRSA If YES, has PT been informed?: No Medical Necessity Reason Pt with a Central, PICC or Fol: No Subjective Feeling much better no diarrhea no abdominal pain no back pain Had a bowel movement for a stool sample also No fever vital signs Vital Sign Date Time Temp Pulse Resp B/P (MAP) Pulse Ox O2 Delivery O2 Flow Rate FiO2 05/13/24 09:00 98.7 83 20 120/75 (90) 99 98.7 05/12/24 20:00 Room Air* 0 21 Total Intake and Output 05/12/24 05/12/24 05/13/24 15:00 23:00 07:00 Intake Total 650 ml 1300 ml 2400 ml Balance 650 ml 1300 ml 2400 ml medications Current Medications Medications Dose Ordered Sig/Kurt Route Start Time Stop Time Status Last Admin Dose Admin Ceftriaxone Sodium 50 ml @ 100 mls/hr DAILY@09 IV 05/12/24 09:00 05/13/24 09:10 100 MLS/HR Metronidazole 100 ml @ 100 mls/hr Q8HR IV 05/11/24 22:00 05/13/24 05:35 100 MLS/HR Ibuprofen 600 mg Q6HP PRN PO 05/11/24 21:00 05/13/24 09:10 600 MG Acetaminophen/ Hydrocodone Bitart 1 tab Q4HP PRN PO 05/11/24 21:00 05/13/24 05:35 1 TAB Ondansetron HCl 4 mg Q4HP PRN IV 05/11/24 21:00 05/13/24 09:10 4 MG Docusate Sodium 100 mg BIDPRN PRN PO 05/11/24 21:00 Morphine Sulfate 2 mg Q4HPRN PRN IV 05/11/24 21:00 05/12/24 16:47 2 MG Nitroglycerin 0.4 mg Q5MINP PRN SL 05/11/24 23:00 Morphine Sulfate 2 mg Q30M PRN IV 05/11/24 23:00 Bisacodyl 5 mg BIDP PRN PO 05/12/24 15:15 Sodium Chloride 1,000 ml @ 150 mls/hr Q6H40M IV 05/12/24 19:15 05/13/24 05:35 150 MLS/HR objective Abdomen soft nontender no masses bowel sounds normal laboratory and microbiology Laboratory Tests 05/13/24 05:32 Test 05/13/24 05:32 Range/Units Serum Glucose 85 74-106 mg/dL Assessment/Plan 44-year-old with complaints of abdominal pain as well as severe diarrhea History of being on amoxicillin outpatient after being in a hospital in [facility] for abdominal pains Since admission patient is better without any abdominal pains no diarrhea no bowel movements at home unable to give a stool sample [place] [address] today after decreasing slightly yesterday Platelets are decreased also The examination showed the abdomen is soft nontender no masses Plans Await the stool sample for C diff as soon as possible will try to give some stool softeners and even MiraLax if necessary for stool sample Awaiting ID consult will recommend to get ID consult soon if possible If symptoms worsens may need CT scan of the abdomen with contrast and or an MRI May have to consider hematology evaluation if white count keeps increasing and platelets keep decreasing If white count is still increased we will recommend to start empirically on vancomycin 125 mg 4 times a day Thank you Warm regards Dr. Harrington Plan discussed with: Patient TJ HARRINGTON MD May 13, 2024 11:05
[2024-05-13] MEDS: DOCUSATE SOD 100 MG CAP PO PRN (11:18)
[2024-05-13] MEDS: VANCOMYCIN HCL 125 MG CAP PO ONE (15:08)
[2024-05-13] MEDS: BISACODYL 5 MG EC TAB PO PRN (15:08)
[2024-05-13] MEDS: VANCOMYCIN HCL 125 MG CAP PO SCH (18:53)
--- NOTE | 2024-05-13 21:16 | DVHINCON2 ---
Date of service: May 13, 2024 Family History: Patient reports no known family medical history. Allergies: Coded Allergies: NO KNOWN ALLERGIES (Unverified , 05/11/24) Home Meds Reported Medications Amoxicillin & Pot Clavulanate (Amoxicillin/Potassium Cla) 875 Mg Tab, 1 TAB PO BID, #20 TAB 05/12/24 Ibuprofen (Ibuprofen) 600 Mg Tab, 600 MG PO Q6HP PRN for PAIN SCALE 7 THRU 10, MG 0 Refills 05/12/24 Current Medications Current Medications Medications (Trade) Dose Ordered Sig/Kurt Route PRN Reason Start Time Stop Time Status Last Admin Vancomycin HCl 125 mg QID PO 05/13/24 18:00 05/13/24 21:05 Vital Signs Vital Signs Date Time Temp Pulse Resp B/P (MAP) Pulse Ox O2 Delivery O2 Flow Rate FiO2 05/13/24 20:00 Room Air* 0 21 05/13/24 17:00 98.4 60 19 153/86 (108) 98 98.4 Labs/Diagnostic Data Labs Test 05/13/24 11:44 05/13/24 05:32 05/12/24 08:54 05/11/24 19:20 Range/Units White Blood Count 46.9 *H 4.4-10.8 10^3/uL Red Blood Count 4.71 4.5-5.90 10^6/uL Hemoglobin 14.1 13.5-17.5 g/dL Hematocrit 41.0 41.0-53.0 % Mean Corpuscular Volume 87.0 80.0-100.0 fL Mean Corpuscular Hemoglobin 30.0 28.0-32.0 pg Mean Corpuscular Hemoglobin Concent 34.4 32.0-36.0 g/dL Red Cell Distribution Width 13.7 11.8-14.3 % Platelet Count 65 L 140-450 10^3/uL Mean Platelet Volume 8.6 6.9-10.8 fL Neutrophils (%) (Auto) 37.0-80.0 % Lymphocytes (%) (Auto) 10.0-50.0 % Monocytes (%) (Auto) 0.0-12.0 % Basophils (%) (Auto) 0.0-2.0 % Neutrophils # (Auto) 1.6-8.6 10 ^3/uL Lymphocytes # (Auto) 0.4-5.4 10 ^3/uL Monocytes # (Auto) 0-1.3 10 ^3/uL Differential Total Cells Counted 100.0 100 Neutrophils % (Manual) 3 L 37.0-80.0 Band Neutrophils % (Manual) 1 Lymphocytes % (Manual) 66 H 10.0-50.0 Monocytes % (Manual) 30 H 0-12 Eosinophils % (Manual) 0 0-7 Basophils % (Manual) 0 0.0-2.0 Metamyelocytes % (manual) 0 Myelocytes % (Manual) 0 Promyelocytes % (Manual) 0 Blast Cells % (Manual) 0 Reactive Lymphocytes 0 Platelet Estimate Decreased Sodium Level 138 136-145 mmol/L Potassium Level 4.0 3.5-5.1 mmol/L Chloride Level 107 98-107 mmol/L Carbon Dioxide Level 20 20-31 mmol/L Anion Gap 11 5-15 Blood Urea Nitrogen 9 9-23 mg/dL Creatinine 1.02 0.700-1.30 mg/dL Glomerular Filtration Rate Calc 94 >90 mL/min BUN/Creatinine Ratio 8.8 L 10.0-20.0 Serum Glucose 85 74-106 mg/dL Calcium Level 9.2 8.7-10.4 mg/dL Total Bilirubin 0.6 0.2-1.0 mg/dL Aspartate Amino Transferase (AST) 52 H 13-40 U/L Alanine Aminotransferase (ALT) 107 H 7-40 U/L Alkaline Phosphatase 119 H 46-116 U/L Total Protein 6.8 5.7-8.2 g/dL Albumin 4.1 3.2-4.8 g/dL Creatine Kinase 222 H 46-171 U/L Urine Color Yellow Yellow Urine Clarity Clear Clear Urine pH 5.5 5.0-9.0 Urine Specific [place] 1.014 1.001-1.035 Urine Protein Trace H Negative Urine Ketones 2+ H Negative Urine Blood Negative Negative /uL Urine Nitrite Negative Negative Urine Bilirubin Negative Negative Urine Urobilinogen Normal Negative mg/dL Urine Leukocyte Esterase Negative Negative /uL Urine RBC <1 0 - 3 /hpf Urine WBC 4 0 - 3 /hpf Urine Squamous Epithelial Cells Few <5 /hpf Urine Bacteria None seen None Seen /hpf Urine Glucose Normal Normal mg/dL Test 05/11/24 14:40 Range/Units Large Platelets Few Troponin I High Sensitivity 6 </=54 ng/L B-Type Natriuretic Peptide 20.24 0-100 pg/mL Lipase 28 12-53 U/L Microbiology Date/Time Source Procedure Growth Status 05/11/24 21:11 Blood Blood Culture - Preliminary NO GROWTH AFTER 24 HOURS OF INCUBATION. Resulted Problems(with codes): (1) Leukocytosis, unspecified (2) Generalized weakness (3) Abdominal pain (4) Thrombocytopenia (5) Leukocytosis Plan/Recommendation ASSESSMENT AND PLAN: ID Problem List: - acute abdominal pain - leukocytosis - thrombocytopenia - elevated liver enzymes - possible colitis - generalized weakness Assessment This is a 44 y.o. male with a past medical history of urachal cystectomy, who pr esents with acute abdominal pain. He was at another facility five days ago and was diagnosed with gastritis and sent home with antibiotics but has not improved. Symptoms have been worsening with associated shortness of breath and nausea. On admission, WBC count was elevated at 27.6 and has continued to rise, reaching up to 48 over the last three days of hospitalization. Platelets have decreased from 82 to 60. AST has improved from 122 to 70. ALT has improved from 237 to 70. Creatinine kinase is 222. Creatinine is 1.26 and has been improving since admission. CT abdomen shows scattered regions; evaluated for C. difficile colitis. Patient was empirically started on Flagyl and ceftriaxone. Vancomycin was added yesterday. Blood cultures are no growth to date. Vital signs are stable, no fevers. Chest X-ray shows no pulmonary disease. Patient was seen by Gastroenterology, who feels that C. difficile is on the differential, likely infectious versus inflammatory disease. Plan: - Continue ceftriaxone and Flagyl empirically - Continue stool studies - Proceed with colonoscopy to further evaluate potential colitis - Send for CRP, leukocyte esterase in stool, and stool occult blood - Discontinue vancomycin at this time - No contraindication to steroid use; defer to GI if indicated in the setting of potential inflammatory bowel disease Isolation Precautions: standard Assessment and plan was discussed with the patient as written above Plan is subject to change pending incorporation of new incoming information/diagnostics. Updates may be added as addendum at the bottom (OR TOP) of this note Thank you for interesting consult. ID will continue to follow. Please contact Infectious Disease for any questions or concerns. Justin Butler M.D. [facility] Ph: ? Teams text: [email or web address] Electronically signed by: Justin Butler MD, 05/14/2024 History: The patient's chart and medications were reviewed in detail and the patient was seen and examined. History obtained from: patient Mr. Perea is a 44 y.o. male with a past medical history of urachal c ystectomy, who presents with acute abdominal pain. He was at another facility five days ago and was diagnosed with gastritis and sent home with antibiotics but has not improved. Symptoms have been worsening with associated shortness of breath and nausea. He was empirically started on Flagyl and evaluated for C. difficile colitis. He has no prior history of C. difficile colitis or inflammatory bowel disease. He was also started on ceftriaxone empirically. He has no family history, lives at home, and reports no smoking, alcohol, or IV drug use. Review of Systems: A complete 10 system review of systems was completed and negative except as noted in the HPI or here. ROS: - CONSTITUTIONAL: Denies weight loss and chills. Reports nausea. - HEENT: Denies changes in vision and hearing. - RESPIRATORY: Reports shortness of breath. - CV: Denies palpitations and chest pain. - GI: Reports abdominal pain. Denies vomiting and diarrhea. - : Denies dysuria and urinary frequency. - MSK: Denies myalgia and joint pain. - SKIN: Denies rash and pruritus. - NEUROLOGICAL: Denies headache and syncope. - PSYCHIATRIC: Denies recent changes in mood. Denies anxiety and depression. Past Medical History: Diagnosis Date Urachal cystectomy Past Surgical History: Urachal cystectomy Home Medications: History reviewed. No pertinent medications. Allergies: Allergies No Known Allergies Family History: Family History No significant family history reported. Social History: Socioeconomic History Marital status: Not on file Number of children: Not on file Years of education: Not on file Highest education level: Not on file Occupational History Not on file Tobacco Use Smoking status: Never Smokeless tobacco: Never Vaping Use Vaping status: Never Used Substance and Sexual Activity Alcohol use: Never Drug use: Never Sexual activity: Not Currently Other Topics Concern Not on file Social History Narrative Lives at home Social Determinants of Health Financial Resource Strain: Low Risk (05/14/2024) - Difficulty of Paying Living Expenses: Not very hard Food Insecurity: Low Risk (05/14/2024) - No difficulties reported Transportation Needs: Low Risk (05/14/2024) - No difficulties reported Physical Activity: Not on file Stress: Not on file Social Connections: Not on file Intimate Partner Violence: Not on file Objective: Vital Signs on Arrival: BP: 143/89 Pulse: 96 SpO2: 98% on room air Most Recent Vital Signs: BP: 143/89 Pulse: 96 SpO2: 98% on room air Admission Weight: Weight: Not on file BMI: Not on file Physical Exam: General: NAD Neck: Supple. No masses. HEENT: PERRL. Normal lids and conjunctiva. Moist mucous membranes. Oropharynx without lesions, exudates or excessive erythema. Normal appearance of the external aspects of the nose and ears. Heart: Regular rhythm, normal rate. No murmur. No lower extremity edema. Lungs: Normal respiratory effort. Clear to auscultation bilaterally. No wheezes. No crackles. Abdomen: Soft. Mildly tender on moderate palpation. Mild distension. Normal active bowel sounds. No masses or abdominal hernia. Msk: Reports generalized weakness. Normal strength and tone in all 4 limbs Skin: Warm and dry, no rashes. Neuro: Alert. No facial droop or slurred speech. Extra-ocular movements intact. Sensation intact to soft touch in all 4 limbs. Psych: Appropriate mood. Full affect. Oriented to person, place, time, and situation. Lines: Active Lines No active lines documented. Diagnostic Studies: Available diagnostic studies were reviewed personally. Significant relevant results and findings are outlined below or addressed in the Assessment and Plan above. Pertinent Imaging: CT Abdomen: - Findings: CT abdomen shows scattered regions; evaluated for C. difficile colitis. Chest X-ray: - Findings: No pulmonary disease. Laboratory Data: - WBC elevated at 27.6, increasing to 48 over the last three days. - Platelets decreased from 82 to 60 over the last three days. - AST improved from 122 to 70. - ALT improved from 237 to 70. - Creatinine kinase: 222. - Creatinine: 1.26, improving since admission. - Blood cultures: No growth to date. Plan discussed with: Patient JUSTIN BUTLER MD May 13, 2024 21:16
[2024-05-14] MEDS: MELATONIN 5 MG TAB PO ONE (01:34)
[2024-05-14 05:00] VITALS: BP 104/62; PULSE 70; RESP 16; TEMP 97.3; O2SAT 97
[2024-05-14 07:01] LABS: Red Cell Distribution Width 14.1 % (11.8-14.3)
[2024-05-14 07:05] LABS: Hematocrit 40.2 % (41.0-53.0); Hemoglobin 13.9 g/dL (13.5-17.5); Mean Corpuscular Hemoglobin 30.1 pg (28.0-32.0); Mean Corpuscular Hgb Conc. 34.7 g/dL (32.0-36.0); Mean Corpuscular Volume 86.7 fL (80.0-100.0); Platelet Count (auto) 60 10^3/uL (140-450); Red Blood Cells 4.64 10^6/uL (4.5-5.90)
[2024-05-14 07:26] LABS: Alanine Aminotransferase 70 U/L (7-40); Albumin 4.1 g/dL (3.2-4.8); Alkaline Phosphatase 114 U/L (46-116); Anion Gap 9 (5-15); Aspartate Aminotransferase 27 U/L (13-40); BUN/Creatinine Ratio 7.4 (10.0-20.0); Bilirubin, Total 0.4 mg/dL (0.2-1.0); Blood Urea Nitrogen 7 mg/dL (9-23); Carbon Dioxide 21 mmol/L (20-31); Chloride 109 mmol/L (98-107); Glucose 90 mg/dL (74-106); Potassium 3.8 mmol/L (3.5-5.1); Sodium 139 mmol/L (136-145); Total Protein 6.5 g/dL (5.7-8.2)
[2024-05-14 07:38] LABS: Basophils % (manual) 0 (0.0-2.0); Blast Cells 0; Metamyelocytes % 0; Myelocytes % 0; Promyelocytes % 0; Reactive Lymphocytes 0
[2024-05-14 08:00] VITALS: PULSE 61; RESP 16; O2SAT 95
[2024-05-14 09:00] VITALS: BP 123/81; PULSE 61; RESP 17; TEMP 97.8; O2SAT 95
[2024-05-14 09:06] LABS: Band Neutrophils % (manual) 3; Eosinophils % (manual) 2 (0-7); Lymphocytes % (manual) 12 (10.0-50.0); Monocytes % (manual) 73 (0-12); Platelet Estimate Decreased
[2024-05-14 09:11] LABS: RBC Morphology Normal
--- NOTE | 2024-05-14 11:41 | DVHPN2 ---
Reviewed: Care Plan, H&P, Labs, Medications, Previous Orders, Radiology Changes from previous H/P or p: No Changes Eyes: No Pain, No Vision change, No Conjunctivae inflammation, No Eyelid inflammation, No Other, No Redness ENT: No Ear pain, No Ear discharge, No Nose pain, No Nose discharge, No Nose congestion, No Mouth pain, No Mouth swelling, No Throat pain, No Throat swelling, No Other Cardiovascular: No Chest Pain, No Palpitations, No Orthopnea, No Paroxysmal Noc. Dyspnea, No Edema, No Lt Headedness, No Other Respiratory: No Cough, No Dry; Shortness of breath; No SOB with excertion, No Wheezing, No Hemoptysis, No Pleuritic Pain, No Sputum, No Other Gastrointestinal: Nausea; No Vomiting; Abdominal Pain; No Diarrhea, No Constipation, No Melena, No Hematochezia, No Other Genitourinary: No Dysuria, No Frequency, No Incontinence, No Hematuria, No Retention, No Other Musculoskeletal: No other, No neck pain, No shoulder pain, No arm pain, No back pain, No hand pain, No leg pain, No foot pain Skin: No Rash, No Lesions, No Jaundice, No Bruising, No Other Objective Vitals Vital Signs Date Time Temp Pulse Resp B/P (MAP) Pulse Ox O2 Delivery O2 Flow Rate FiO2 05/14/24 09:00 97.8 61 17 123/81 (95) 95 97.8 05/14/24 08:00 Room Air* 0 21 Intake/Output Intake and Output 05/14/24 07:00 Intake Total 3075 ml Balance 3075 ml Intake Oral 1825 ml IV Total 1250 ml # Voids 14 # Bowel Movements 2 Medications Current Medications Medications Dose Ordered Sig/Kurt Route Start Time Stop Time Status Last Admin Dose Admin Ceftriaxone Sodium 50 ml @ 100 mls/hr DAILY@09 IV 05/12/24 09:00 05/14/24 08:10 100 MLS/HR Metronidazole 100 ml @ 100 mls/hr Q8HR IV 05/11/24 22:00 05/14/24 05:25 100 MLS/HR Ibuprofen 600 mg Q6HP PRN PO 05/11/24 21:00 05/13/24 09:10 600 MG Acetaminophen/ Hydrocodone Bitart 1 tab Q4HP PRN PO 05/11/24 21:00 05/14/24 08:10 1 TAB Ondansetron HCl 4 mg Q4HP PRN IV 05/11/24 21:00 05/13/24 09:10 4 MG Docusate Sodium 100 mg BIDPRN PRN PO 05/11/24 21:00 05/13/24 21:05 100 MG Morphine Sulfate 2 mg Q4HPRN PRN IV 05/11/24 21:00 05/12/24 16:47 2 MG Nitroglycerin 0.4 mg Q5MINP PRN SL 05/11/24 23:00 Morphine Sulfate 2 mg Q30M PRN IV 05/11/24 23:00 Bisacodyl 5 mg BIDP PRN PO 05/12/24 15:15 05/14/24 05:25 5 MG Sodium Chloride 1,000 ml @ 150 mls/hr Q6H40M IV 05/12/24 19:15 05/14/24 04:21 150 MLS/HR Vancomycin HCl 125 mg QID PO 05/13/24 18:00 05/14/24 05:29 125 MG Laboratory Results Laboratory Tests 05/14/24 06:00 Chemistry Test 05/14/24 06:00 Albumin 4.1 g/dL (3.2-4.8) Calcium Level 9.0 mg/dL (8.7-10.4) Total Protein 6.5 g/dL (5.7-8.2) LFT Test 05/14/24 06:00 Alanine Aminotransferase (ALT) 70 U/L (7-40) H Alkaline Phosphatase 114 U/L (46-116) Aspartate Amino Transferase (AST) 27 U/L (13-40) Total Bilirubin 0.4 mg/dL (0.2-1.0) Urinalysis Test 05/11/24 19:20 Urine Color Yellow (Yellow) Urine Clarity Clear (Clear) Urine pH 5.5 (5.0-9.0) Urine Specific [place] 1.014 (1.001-1.035) Urine Protein Trace (Negative) H Urine Ketones 2+ (Negative) H Urine Blood Negative /uL (Negative) Urine Nitrite Negative (Negative) Urine Bilirubin Negative (Negative) Urine Urobilinogen Normal mg/dL (Negative) Urine Leukocyte Esterase Negative /uL (Negative) Urine RBC <1 /hpf (0 - 3) Urine WBC 4 /hpf (0 - 3) Urine Squamous Epithelial Cells Few /hpf (<5) Urine Bacteria None seen /hpf (None Seen) Urine Glucose Normal mg/dL (Normal) Microbiology Microbiology Date/Time Source Procedure Growth Status 05/11/24 21:11 Blood Blood Culture - Preliminary NO GROWTH AFTER 48 HOURS OF INCUBATION. Resulted Labs and/or images reviewed: Labs reviewed by me, Image(s) reviewed by me Assessment/Plan Assessment/Plan Severe Sepsis secondary to acute colitis blood cultures negative Acute Colitis: Rocephin Flagyl, GI consult by Dr. Harrington Acute dehydration: IV fluids History of cholecystectomy C diff colitis p.o. vancomycin added to Rocephin and Flagyl, stool for C diff not collected as the stay in the hospital is more than three days, and not allowed per hospital policy Acute appendicitis ruled out Patient was seen in [facility] five days ago and discharged with a diagnosis of rhabdomyolysis and acute gastritis Patient's mother lives in [facility] [phone] at bedside Time spent 55 minutes Advanced care planning time 20 minutes Patient is full code Plan discussed with: Patient My Orders Orders - DEBBIE NEBSITT MD Procedure Category Date Status Time Communication Order ORDERS 05/13/24 Transmitted 12:46 Vancomycin Po PHA 05/13/24 In Process 18:00 * Hematology/Oncology CONS 05/13/24 Transmitted Consult 13:08 Complete Blood Count LAB 05/15/24 Verified 05:00 Complete Blood Count LAB 05/16/24 Verified 05:00 Complete Blood Count LAB 05/17/24 Verified 05:00 Complete Blood Count LAB 05/18/24 Verified 05:00 Comprehensive LAB 05/15/24 Verified Metabolic Panel 05:00 Comprehensive LAB 05/16/24 Verified Metabolic Panel 05:00 Comprehensive LAB 05/17/24 Verified Metabolic Panel 05:00 Comprehensive LAB 05/18/24 Verified Metabolic Panel 05:00 Mrsa Screen CHIQUITA 05/14/24 Logged 09:12 Date of Service: May 14, 2024 Billing Provider: DEBBIE NESBITT MD Common Visit Codes: [id number] INP/OBS CARE(HIGH) DEBBIE NESBITT MD May 14, 2024 11:41
--- NOTE | 2024-05-14 12:39 | DVHINCON2 ---
Date of service: May 14, [address] Macie Fowler Reason for Consultation Leukocytosis/monocytosis History of Present Illness 44 years old gentleman Who presented to the hospital with back pain and hip pains. Had a CT scan of the abdomen pelvis without contrast which showed scattered regions of segmental wall thickening throughout the colon may be due to colitis versus incomplete distention. Prominent right lower quadrant lymph nodes could be reactive or could be mesenteric adenitis. Normal appendix and is status postcholecystectomy Chest x-ray was unremarkable Labs showed white count 40,000 hemoglobin 13.9 hematocrit 40.2 MCV 86.7 platelets 60,000. The blood smear showed significantly increased number of monocytes/myelocytes AST 27 ALT 70 alkaline phosphatase 114 total protein 6.5 albumin 4.1 No complaints of fevers night sweats no bruising or bleeding. Patient has been somewhat constipated. Past Medical History History of cholecystectomy Family History: Patient reports no known family medical history. Family History Maternal great grandfather had lymphoma maternal grandmother had ovarian cancer paternal grandmother had uterine cancer Social History No smoking drinking or drugs Allergies: Coded Allergies: NO KNOWN ALLERGIES (Unverified , 05/11/24) Home Meds Reported Medications Amoxicillin & Pot Clavulanate (Amoxicillin/Potassium Cla) 875 Mg Tab, 1 TAB PO BID, #20 TAB 05/12/24 Ibuprofen (Ibuprofen) 600 Mg Tab, 600 MG PO Q6HP PRN for PAIN SCALE 7 THRU 10, MG 0 Refills 05/12/24 Current Medications Current Medications Medications (Trade) Dose Ordered Sig/Kurt Route PRN Reason Start Time Stop Time Status Last Admin Vancomycin HCl 125 mg QID PO 05/13/24 18:00 05/14/24 12:24 Vital Signs Vital Signs Date Time Temp Pulse Resp B/P (MAP) Pulse Ox O2 Delivery O2 Flow Rate FiO2 05/14/24 09:00 97.8 61 17 123/81 (95) 95 97.8 05/14/24 08:00 Room Air* 0 21 Physical Exam GENERAL: The patient is a moderately built and nourished ,in no distress, alert and oriented. HEAD AND NECK: Unremarkable. No neck nodes or masses. Conjunctivae: Unremarkable for any mucosal hemorrhage or inflammation. Thyroid is nonpalpable. Throat is unremarkable. SPINE: No deformities or tenderness. CHEST: Chest wall, no tenderness. LUNGS: Clear. CARDIOVASCULAR: Regular sinus rhythm. No murmurs or gallops. ABDOMEN: No organomegaly, tenderness or ascites. Bowel sounds present. EXTREMITIES: No clubbing, edema or cyanosis. Peripheral pulses palpable. No calf tenderness. LYMPHATICS: No significant lymphadenopathy. NEUROLOGIC: No focal neurological deficits. SKIN: Unremarkable for any petechiae, purpura, or ecchymosis. Psych: No abnormalities Available data reviewed Labs/Diagnostic Data Labs Test 05/14/24 06:00 05/12/24 08:54 05/11/24 19:20 05/11/24 14:40 Range/Units White Blood Count 40.0 *H 4.4-10.8 10^3/uL Red Blood Count 4.64 4.5-5.90 10^6/uL Hemoglobin 13.9 13.5-17.5 g/dL Hematocrit 40.2 L 41.0-53.0 % Mean Corpuscular Volume 86.7 80.0-100.0 fL Mean Corpuscular Hemoglobin 30.1 28.0-32.0 pg Mean Corpuscular Hemoglobin Concent 34.7 32.0-36.0 g/dL Red Cell Distribution Width 14.1 11.8-14.3 % Platelet Count 60 L 140-450 10^3/uL Mean Platelet Volume 8.8 6.9-10.8 fL Neutrophils (%) (Auto) 37.0-80.0 % Lymphocytes (%) (Auto) 10.0-50.0 % Monocytes (%) (Auto) 0.0-12.0 % Basophils (%) (Auto) 0.0-2.0 % Neutrophils # (Auto) 1.6-8.6 10 ^3/uL Lymphocytes # (Auto) 0.4-5.4 10 ^3/uL Monocytes # (Auto) 0-1.3 10 ^3/uL Differential Total Cells Counted 100.0 100 Neutrophils % (Manual) 10 L 37.0-80.0 Band Neutrophils % (Manual) 3 Lymphocytes % (Manual) 12 10.0-50.0 Monocytes % (Manual) 73 H 0-12 Eosinophils % (Manual) 2 0-7 Basophils % (Manual) 0 0.0-2.0 Metamyelocytes % (manual) 0 Myelocytes % (Manual) 0 Promyelocytes % (Manual) 0 Blast Cells % (Manual) 0 Reactive Lymphocytes 0 Platelet Estimate Decreased Red Blood Cell Morphology Normal Sodium Level 139 136-145 mmol/L Potassium Level 3.8 3.5-5.1 mmol/L Chloride Level 109 H 98-107 mmol/L Carbon Dioxide Level 21 20-31 mmol/L Anion Gap 9 5-15 Blood Urea Nitrogen 7 L 9-23 mg/dL Creatinine 0.95 0.700-1.30 mg/dL Glomerular Filtration Rate Calc 102 >90 mL/min BUN/Creatinine Ratio 7.4 L 10.0-20.0 Serum Glucose 90 74-106 mg/dL Calcium Level 9.0 8.7-10.4 mg/dL Total Bilirubin 0.4 0.2-1.0 mg/dL Aspartate Amino Transferase (AST) 27 13-40 U/L Alanine Aminotransferase (ALT) 70 H 7-40 U/L Alkaline Phosphatase 114 46-116 U/L Total Protein 6.5 5.7-8.2 g/dL Albumin 4.1 3.2-4.8 g/dL Creatine Kinase 222 H 46-171 U/L Urine Color Yellow Yellow Urine Clarity Clear Clear Urine pH 5.5 5.0-9.0 Urine Specific [place] 1.014 1.001-1.035 Urine Protein Trace H Negative Urine Ketones 2+ H Negative Urine Blood Negative Negative /uL Urine Nitrite Negative Negative Urine Bilirubin Negative Negative Urine Urobilinogen Normal Negative mg/dL Urine Leukocyte Esterase Negative Negative /uL Urine RBC <1 0 - 3 /hpf Urine WBC 4 0 - 3 /hpf Urine Squamous Epithelial Cells Few <5 /hpf Urine Bacteria None seen None Seen /hpf Urine Glucose Normal Normal mg/dL Large Platelets Few Troponin I High Sensitivity 6 </=54 ng/L B-Type Natriuretic Peptide 20.24 0-100 pg/mL Lipase 28 12-53 U/L Microbiology Date/Time Source Procedure Growth Status 05/11/24 21:11 Blood Blood Culture - Preliminary NO GROWTH AFTER 48 HOURS OF INCUBATION. Resulted Assessment 1.Leukocytosis with increased myelocytes/monocytes/Thrombocytopenia etiology to be determined Blood cultures are negative for 48 hours after 2. Colitis with C. difficile Plan/Recommendation Will suggest doing a bone marrow aspiration biopsy to rule out the possibility of bone marrow pathology and send the bone marrow for pathology, flow cytometry cytogenetics and FISH Plan discussed with: Patient SHELBI BARRON MD May 14, 2024 12:39
[2024-05-14 12:45] LABS: Hepatitis B Core Total AB Negative (Negative)
[2024-05-14 13:00] VITALS: BP 117/79; PULSE 82; RESP 21; TEMP 97.9; O2SAT 100
[2024-05-14 14:09] LABS: Hepatitis B Surface Antibody Negative (Negative); Hepatitis B Surface Antigen Negative (Negative)
[2024-05-14 14:10] LABS: Hepatitis A Total Antibody Positive (Negative); Hepatitis C Antibody Negative (Negative)
[2024-05-14] MEDS: LORazepam 0.5 MG TAB PO ONE (14:30)
[2024-05-14 15:08] LABS: INR 1.18 (0.9-1.15); Partial Thromboplastin Time 31.5 SEC (24.5-34.5); Prothrombin Time 12.4 sec (9.3-11.8)
[2024-05-14] MEDS: fentaNYL CITRATE 100 MCG/2 ML VL IV ONE (15:15)
[2024-05-14] MEDS: MIDAZOLAM HCL 2MG/2ML 2ml VIAL (1mg/ml) IV ONE (15:15)
[2024-05-14] MEDS: LIDOCAINE 2%HCL (LOCAL ANESTH.) INJ 10ml MDV ONE (15:20)
--- NOTE | 2024-05-14 16:35 | DVH ---
CT CT GUIDED NEEDLEBIOPSY, HISTORY: BONE MARROW BIOPSY COMPARISON: None PROCEDURE: Informed consent and time-out was performed before the procedure. Conscious sedation was p erformed by the interventional radiology nurse for 30 minutes. The right posterior pelvic bone was ma rked, sterilized, draped, and locally anesthetized using approximately 10 ml of 1% lidocaine. Axial C T images were used for localization. A 11 gauge [employer] Bone Biopsy kit was used to take 15 mL aspi rate and 1 core sample. The biopsy needle was then removed. No immediate complications noted. FINDINGS: Axial CT images demonstrates biopsy needle within the right posterior pelvic bone. IMPRESSION: Successful CT-guided biopsy of the right posterior pelvic bone.
--- NOTE | 2024-05-14 16:35 | DVH ---
CT PELVIS WO CONTRAST, HISTORY: BONE MARROW BIOPSY COMPARISON: None PROCEDURE: Informed consent and time-out was performed before the procedure. Conscious sedation was p erformed by the interventional radiology nurse for 30 minutes. The right posterior pelvic bone was ma rked, sterilized, draped, and locally anesthetized using approximately 10 ml of 1% lidocaine. Axial C T images were used for localization. A 11 gauge [employer] Bone Biopsy kit was used to take 15 mL aspi rate and 1 core sample. The biopsy needle was then removed. No immediate complications noted. FINDINGS: Axial CT images demonstrates biopsy needle within the right posterior pelvic bone. IMPRESSION: Successful CT-guided biopsy of the right posterior pelvic bone.
--- NOTE | 2024-05-14 17:02 | DVHPN2 ---
Consult Progress Note Date Seen: May 14, 2024 Subjective Patient reports: Other (feels anxious about his procedure and diagnosis , no longer having abdominal pain and has not had any bowel movements ) Objective vital signs Vital Sign Date Time Temp Pulse Resp B/P (MAP) Pulse Ox O2 Delivery O2 Flow Rate FiO2 05/14/24 15:15 132/74 05/14/24 09:00 97.8 61 17 95 97.8 05/14/24 08:00 Room Air* 0 21 Total Intake and Output 05/13/24 05/13/24 05/14/24 15:00 23:00 07:00 Intake Total 50 ml 1025 ml 2000 ml Balance 50 ml 1025 ml 2000 ml medications Current Medications Medications Dose Ordered Sig/Kurt Route Start Time Stop Time Status Last Admin Dose Admin Ceftriaxone Sodium 50 ml @ 100 mls/hr DAILY@09 IV 05/12/24 09:00 05/14/24 08:10 100 MLS/HR Metronidazole 100 ml @ 100 mls/hr Q8HR IV 05/11/24 22:00 05/14/24 13:48 100 MLS/HR Ibuprofen 600 mg Q6HP PRN PO 05/11/24 21:00 05/13/24 09:10 600 MG Acetaminophen/ Hydrocodone Bitart 1 tab Q4HP PRN PO 05/11/24 21:00 05/14/24 12:55 1 TAB Ondansetron HCl 4 mg Q4HP PRN IV 05/11/24 21:00 05/13/24 09:10 4 MG Docusate Sodium 100 mg BIDPRN PRN PO 05/11/24 21:00 05/14/24 13:48 100 MG Morphine Sulfate 2 mg Q4HPRN PRN IV 05/11/24 21:00 05/12/24 16:47 2 MG Nitroglycerin 0.4 mg Q5MINP PRN SL 05/11/24 23:00 Morphine Sulfate 2 mg Q30M PRN IV 05/11/24 23:00 Bisacodyl 5 mg BIDP PRN PO 05/12/24 15:15 05/14/24 05:25 5 MG Sodium Chloride 1,000 ml @ 150 mls/hr Q6H40M IV 05/12/24 19:15 05/14/24 04:21 150 MLS/HR Vancomycin HCl 125 mg QID PO 05/13/24 18:00 05/14/24 12:24 125 MG Lorazepam 0.5 mg BID PRN PO 05/14/24 14:30 Physical Exam: General: NAD Neck: Supple. No masses. HEENT: PERRL. Normal lids and conjunctiva. Moist mucous membranes. Oropharynx without lesions, exudates or excessive erythema. Normal appearance of the external aspects of the nose and ears. Heart: Regular rhythm, normal rate. No murmur. No lower extremity edema. Lungs: Normal respiratory effort. Clear to auscultation bilaterally. No wheezes. No crackles. Abdomen: Soft. Mildly tender on moderate palpation. Mild distension. point tenderness on right ribcage Normal active bowel sounds. No masses or abdominal hernia. Msk: Reports generalized weakness. Normal strength and tone in all 4 limbs Skin: Warm and dry, no rashes. Neuro: Alert. No facial droop or slurred speech. Extra-ocular movements intact. Sensation intact to soft touch in all 4 limbs. Psych: Appropriate mood. Full affect. Oriented to person, place, time, and situation. laboratory and microbiology Laboratory Tests 05/14/24 06:00 Test 05/14/24 06:00 Range/Units Serum Glucose 90 74-106 mg/dL Problem List/Assessment/Plan Problems(with codes): (1) Leukocytosis, unspecified (2) Generalized weakness (3) Abdominal pain (4) Thrombocytopenia (5) Leukocytosis Problem List/Assessment/Plan ID Problem List: - acute abdominal pain - leukocytosis - thrombocytopenia - elevated liver enzymes - possible colitis - generalized weakness Assessment This is a 44 y.o. male with a past medical history of urachal cystectomy, who presents with acute abdominal pain. He was at another facility five days ago and was diagnosed with gastritis and sent home with antibiotics but has not improved. Symptoms have been worsening with associated shortness of breath and nausea. On admission, WBC count was elevated at 27.6 and has continued to rise, reaching up to 48 over the last three days of hospitalization. Platelets have decreased from 82 to 60. AST has improved from 122 to 70. ALT has improved from 237 to 70. Creatinine kinase is 222. Creatinine is 1.26 and has been improving since admission. CT abdomen shows scattered regions; evaluated for C. difficile colitis. Patient was empirically started on Flagyl and ceftriaxone. Vancomycin was added yesterday. Blood cultures are no growth to date. Vital signs are stable, no fevers. Chest X-ray shows no pulmonary disease. Patient was seen by Gastroenterology, who feels that C. difficile is on the differential, likely infectious versus inflammatory disease. 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 per [facility] , if patient has a viral ideology for Rabdo or cytopenia a bore marrow biopsy would help diagnosis this - Agree with colonoscopy , if there is concerning lesion would recommend biopsies to furter evaluate for infectious etiology such as CMMV - Test for HIV - Continue ceftriaxone and Flagyl empirically - Continue stool studies - Proceed with colonoscopy to further evaluate potential colitis - Send for CRP, leukocyte esterase in stool, and stool occult blood - Stop vancomycin - No contraindication to steroid use; defer to GI if indicated in the setting of potential inflammatory bowel disease Plan discussed with: JUSTIN Baum MD May 14, 2024 17:02
[2024-05-14 17:17] VITALS: BP 118/80; PULSE 78; RESP 18; TEMP 98.3; O2SAT 97
[2024-05-14 21:00] VITALS: BP 108/57; PULSE 85; RESP 18; TEMP 97.7; O2SAT 97
[2024-05-15] VITALS (7 sets, daily range): BP systolic 103–120; BP diastolic 57–76; PULSE 72–85; RESP 17–20; TEMP 97.6–98.2; O2SAT 94–97
[2024-05-15 07:05] LABS: Hematocrit 40.3 % (41.0-53.0)
[2024-05-15 07:09] LABS: Mean Corpuscular Hemoglobin 30.2 pg (28.0-32.0); Mean Corpuscular Hgb Conc. 34.8 g/dL (32.0-36.0); Mean Corpuscular Volume 86.7 fL (80.0-100.0); Platelet Count (auto) 60 10^3/uL (140-450); Red Blood Cells 4.65 10^6/uL (4.5-5.90)
[2024-05-15 07:12] LABS: Alanine Aminotransferase 52 U/L (7-40); Albumin 3.9 g/dL (3.2-4.8); Alkaline Phosphatase 113 U/L (46-116); Anion Gap 9 (5-15); Aspartate Aminotransferase 21 U/L (13-40); BUN/Creatinine Ratio 8.1 (10.0-20.0); Bilirubin, Total 0.5 mg/dL (0.2-1.0); Blood Urea Nitrogen 8 mg/dL (9-23); Calcium 9.2 mg/dL (8.7-10.4); Carbon Dioxide 23 mmol/L (20-31); Chloride 106 mmol/L (98-107); Glucose 89 mg/dL (74-106); Potassium 3.8 mmol/L (3.5-5.1); Sodium 138 mmol/L (136-145); Total Protein 6.6 g/dL (5.7-8.2)
[2024-05-15 07:32] LABS: White Blood Cell 44.5 10^3/uL (4.4-10.8)
[2024-05-15 07:33] LABS: Basophils % (manual) 0 (0.0-2.0); Blast Cells 0; Eosinophils % (manual) 0 (0-7); Metamyelocytes % 0; Myelocytes % 0; Promyelocytes % 0; Reactive Lymphocytes 0
--- NOTE | 2024-05-15 08:52 | DVHPN2 ---
Progress Note - Dictate Date Seen: May 15, 2024 Has the PT tested + for MRSA If YES, has PT been informed?: Yes Medical Necessity Reason Pt with a Central, PICC or Fol: No Subjective Patient is feeling somewhat better. No bleeding or headaches nausea vomiting. No fevers night sweats. No significant abdominal pains vital signs Vital Sign Date Time Temp Pulse Resp B/P (MAP) Pulse Ox O2 Delivery O2 Flow Rate FiO2 05/15/24 05:00 97.7 72 17 103/70 (81) 96 97.7 05/14/24 20:00 Room Air* 0 21 Total Intake and Output 05/14/24 05/14/24 05/15/24 15:00 23:00 07:00 Intake Total 150 ml 500 ml 150 ml Balance 150 ml 500 ml 150 ml medications Current Medications Medications Dose Ordered Sig/Kurt Route Start Time Stop Time Status Last Admin Dose Admin Ceftriaxone Sodium 50 ml @ 100 mls/hr DAILY@09 IV 05/12/24 09:00 05/15/24 08:28 100 MLS/HR Metronidazole 100 ml @ 100 mls/hr Q8HR IV 05/11/24 22:00 05/15/24 06:05 100 MLS/HR Ibuprofen 600 mg Q6HP PRN PO 05/11/24 21:00 05/13/24 09:10 600 MG Acetaminophen/ Hydrocodone Bitart 1 tab Q4HP PRN PO 05/11/24 21:00 05/15/24 07:02 1 TAB Ondansetron HCl 4 mg Q4HP PRN IV 05/11/24 21:00 05/14/24 18:12 4 MG Docusate Sodium 100 mg BIDPRN PRN PO 05/11/24 21:00 05/14/24 13:48 100 MG Morphine Sulfate 2 mg Q4HPRN PRN IV 05/11/24 21:00 05/12/24 16:47 2 MG Nitroglycerin 0.4 mg Q5MINP PRN SL 05/11/24 23:00 Morphine Sulfate 2 mg Q30M PRN IV 05/11/24 23:00 Bisacodyl 5 mg BIDP PRN PO 05/12/24 15:15 05/14/24 05:25 5 MG Sodium Chloride 1,000 ml @ 150 mls/hr Q6H40M IV 05/12/24 19:15 05/15/24 07:01 150 MLS/HR Vancomycin HCl 125 mg QID PO 05/13/24 18:00 05/15/24 06:05 125 MG Lorazepam 0.5 mg BID PRN PO 05/14/24 14:30 objective Head and neck: Unremarkable for any masses or neck nodes. Lungs: Clear Cardiovascular: Regular sinus rhythm Abdomen: No organomegaly, tenderness or ascites. Bowel sounds are present. Extremities: No clubbing edema cyanosis or calf tenderness. Skin: Unremarkable for petechia purpura ecchymosis Lymphadenopathy: None laboratory and microbiology Laboratory Tests 05/15/24 05:51 Test 05/15/24 05:51 Range/Units Serum Glucose 89 74-106 mg/dL Assessment/Plan 1.Leukocytosis with increased myelocytes/monocytes/Thrombocytopenia etiology to be determined Had bone marrow aspiration biopsy done yesterday and the report is pending Blood cultures are negative for 48 hours after 2. Colitis with C. difficile Plan: The bone marrow report may take couple of more days and with the long weekend I do not in the bone marrow report will be back till Tuesday. If the patient is stable he could be followed as an outpatient Plan discussed with: Patient SHELBI BARRON MD May 15, 2024 08:52
[2024-05-15 09:30] LABS: Band Neutrophils % (manual) 1; Lymphocytes % (manual) 24 (10.0-50.0)
[2024-05-15 09:31] LABS: Monocytes % (manual) 57 (0-12); Platelet Estimate Decreased
--- NOTE | 2024-05-15 12:25 | DVHPN2 ---
Reviewed: Care Plan, H&P, Labs, Medications, Previous Orders, Radiology Changes from previous H/P or p: No Changes Eyes: No Pain, No Vision change, No Conjunctivae inflammation, No Eyelid inflammation, No Other, No Redness ENT: No Ear pain, No Ear discharge, No Nose pain, No Nose discharge, No Nose congestion, No Mouth pain, No Mouth swelling, No Throat pain, No Throat swelling, No Other Cardiovascular: No Chest Pain, No Palpitations, No Orthopnea, No Paroxysmal Noc. Dyspnea, No Edema, No Lt Headedness, No Other Respiratory: No Cough, No Dry; Shortness of breath; No SOB with excertion, No Wheezing, No Hemoptysis, No Pleuritic Pain, No Sputum, No Other Gastrointestinal: Nausea; No Vomiting; Abdominal Pain; No Diarrhea, No Constipation, No Melena, No Hematochezia, No Other Genitourinary: No Dysuria, No Frequency, No Incontinence, No Hematuria, No Retention, No Other Musculoskeletal: No other, No neck pain, No shoulder pain, No arm pain, No back pain, No hand pain, No leg pain, No foot pain Skin: No Rash, No Lesions, No Jaundice, No Bruising, No Other Objective Vitals Vital Signs Date Time Temp Pulse Resp B/P (MAP) Pulse Ox O2 Delivery O2 Flow Rate FiO2 05/15/24 09:00 98.0 84 20 110/67 (81) 94 98.0 05/14/24 20:00 Room Air* 0 21 Intake/Output Intake and Output 05/15/24 07:00 Intake Total 800 ml Balance 800 ml Intake Oral 650 ml IV Total 150 ml # Voids 7 Medications Current Medications Medications Dose Ordered Sig/Kurt Route Start Time Stop Time Status Last Admin Dose Admin Ceftriaxone Sodium 50 ml @ 100 mls/hr DAILY@09 IV 05/12/24 09:00 05/15/24 08:28 100 MLS/HR Metronidazole 100 ml @ 100 mls/hr Q8HR IV 05/11/24 22:00 05/15/24 06:05 100 MLS/HR Ibuprofen 600 mg Q6HP PRN PO 05/11/24 21:00 05/13/24 09:10 600 MG Acetaminophen/ Hydrocodone Bitart 1 tab Q4HP PRN PO 05/11/24 21:00 05/15/24 12:04 1 TAB Ondansetron HCl 4 mg Q4HP PRN IV 05/11/24 21:00 05/14/24 18:12 4 MG Docusate Sodium 100 mg BIDPRN PRN PO 05/11/24 21:00 05/14/24 13:48 100 MG Morphine Sulfate 2 mg Q4HPRN PRN IV 05/11/24 21:00 05/12/24 16:47 2 MG Nitroglycerin 0.4 mg Q5MINP PRN SL 05/11/24 23:00 Morphine Sulfate 2 mg Q30M PRN IV 05/11/24 23:00 Bisacodyl 5 mg BIDP PRN PO 05/12/24 15:15 05/14/24 05:25 5 MG Sodium Chloride 1,000 ml @ 150 mls/hr Q6H40M IV 05/12/24 19:15 05/15/24 07:01 150 MLS/HR Vancomycin HCl 125 mg QID PO 05/13/24 18:00 05/15/24 12:04 125 MG Lorazepam 0.5 mg BID PRN PO 05/14/24 14:30 Laboratory Results Laboratory Tests 05/15/24 05:51 Chemistry Test 05/15/24 05:51 Albumin 3.9 g/dL (3.2-4.8) Calcium Level 9.2 mg/dL (8.7-10.4) Total Protein 6.6 g/dL (5.7-8.2) Coagulation Test 05/14/24 14:30 Prothrombin Time 12.4 sec (9.3-11.8) H Prothrombin Time INR 1.18 (0.9-1.15) H Activated Partial Thromboplast Time 31.5 SEC (24.5-34.5) LFT Test 05/15/24 05:51 Alanine Aminotransferase (ALT) 52 U/L (7-40) H Alkaline Phosphatase 113 U/L (46-116) Aspartate Amino Transferase (AST) 21 U/L (13-40) Total Bilirubin 0.5 mg/dL (0.2-1.0) Urinalysis Test 05/11/24 19:20 Urine Color Yellow (Yellow) Urine Clarity Clear (Clear) Urine pH 5.5 (5.0-9.0) Urine Specific [place] 1.014 (1.001-1.035) Urine Protein Trace (Negative) H Urine Ketones 2+ (Negative) H Urine Blood Negative /uL (Negative) Urine Nitrite Negative (Negative) Urine Bilirubin Negative (Negative) Urine Urobilinogen Normal mg/dL (Negative) Urine Leukocyte Esterase Negative /uL (Negative) Urine RBC <1 /hpf (0 - 3) Urine WBC 4 /hpf (0 - 3) Urine Squamous Epithelial Cells Few /hpf (<5) Urine Bacteria None seen /hpf (None Seen) Urine Glucose Normal mg/dL (Normal) Microbiology Microbiology Date/Time Source Procedure Growth Status 05/11/24 21:11 Blood Blood Culture - Preliminary NO GROWTH AFTER 72 HOURS OF INCUBATION. Resulted Labs and/or images reviewed: Labs reviewed by me, Image(s) reviewed by me Assessment/Plan Assessment/Plan Severe Sepsis secondary to acute colitis blood cultures negative Acute Colitis: Rocephin Flagyl, GI consult by Dr. Harrington appreciated, ID consult by Dr. Bong Butler appreciated Acute dehydration: IV fluids History of cholecystectomy C diff colitis p.o. vancomycin added to Rocephin and Flagyl, stool for C diff not collected as the stay in the hospital is more than three days, and not allowed per hospital policy Acute appendicitis ruled out Leukocytosis 44 K rule out hematological malignancy, Hematology consult by Dr. Paulson appreciated bone marrow biopsy result pending Patient was seen in [facility] five days ago and discharged with a diagnosis of rhabdomyolysis and acute gastritis Patient's mother lives in [facility] [phone] at bedside Time spent 55 minutes Advanced care planning time 20 minutes Patient is full code Plan discussed with: Patient My Orders Orders - DEBBIE NESBITT MD Procedure Category Date Status Time Ct Guided Needlebiopsy CT 05/14/24 Resulted 15:[address] 05/14/24 Resulted 15:22 Date of Service: May 15, 2024 Billing Provider: DEBBIE NESBITT MD Common Visit Codes: [id number] INP/OBS CARE(HIGH) DEBBIE NESBITT MD May 15, 2024 12:25
--- NOTE | 2024-05-15 18:35 | MEDREC ---
[facility] ASP Intervention Section I [facility] ASP Intervention: Review courses of therapy (PER ID CONSULT NOTE PLEASE STOP VANCOMYCIN) TUAN POOLE PHARMACIST May 15, 2024 18:35
[2024-05-16] VITALS (7 sets, daily range): BP systolic 104–138; BP diastolic 48–79; PULSE 66–91; RESP 17–19; TEMP 97.4–98.1; O2SAT 94–100
[2024-05-16 06:08] LABS: Alanine Aminotransferase 51 U/L (7-40); Albumin 3.8 g/dL (3.2-4.8); Alkaline Phosphatase 117 U/L (46-116); Anion Gap 10 (5-15); Aspartate Aminotransferase 25 U/L (13-40); BUN/Creatinine Ratio 6.9 (10.0-20.0); Blood Urea Nitrogen 7 mg/dL (9-23); Calcium 9.2 mg/dL (8.7-10.4); Carbon Dioxide 22 mmol/L (20-31); Chloride 108 mmol/L (98-107); Glucose 86 mg/dL (74-106); Potassium 3.9 mmol/L (3.5-5.1); Sodium 140 mmol/L (136-145)
[2024-05-16 06:09] LABS: Bilirubin, Total 0.4 mg/dL (0.2-1.0); Total Protein 6.6 g/dL (5.7-8.2)
[2024-05-16 06:12] LABS: Hemoglobin 13.8 g/dL (13.5-17.5); Mean Corpuscular Hgb Conc. 34.4 g/dL (32.0-36.0); Mean Corpuscular Volume 87.2 fL (80.0-100.0); Platelet Count (auto) 57 10^3/uL (140-450); Red Blood Cells 4.59 10^6/uL (4.5-5.90); Red Cell Distribution Width 14.2 % (11.8-14.3)
[2024-05-16 06:35] LABS: White Blood Cell 55.5 10^3/uL (4.4-10.8)
[2024-05-16 06:36] LABS: Basophils % (manual) 0 (0.0-2.0); Blast Cells 0; Metamyelocytes % 0; Myelocytes % 0; Promyelocytes % 0; Reactive Lymphocytes 0
[2024-05-16 10:05] LABS: Band Neutrophils % (manual) 2; Eosinophils % (manual) 1 (0-7); Lymphocytes % (manual) 16 (10.0-50.0); Monocytes % (manual) 65 (0-12); Platelet Estimate Decreased
--- NOTE | 2024-05-16 12:28 | DVHPN2 ---
Reviewed: Care Plan, H&P, Labs, Medications, Previous Orders, Radiology Changes from previous H/P or p: No Changes Eyes: No Pain, No Vision change, No Conjunctivae inflammation, No Eyelid inflammation, No Other, No Redness ENT: No Ear pain, No Ear discharge, No Nose pain, No Nose discharge, No Nose congestion, No Mouth pain, No Mouth swelling, No Throat pain, No Throat swelling, No Other Cardiovascular: No Chest Pain, No Palpitations, No Orthopnea, No Paroxysmal Noc. Dyspnea, No Edema, No Lt Headedness, No Other Respiratory: No Cough, No Dry; Shortness of breath; No SOB with excertion, No Wheezing, No Hemoptysis, No Pleuritic Pain, No Sputum, No Other Gastrointestinal: Nausea; No Vomiting; Abdominal Pain; No Diarrhea, No Constipation, No Melena, No Hematochezia, No Other Genitourinary: No Dysuria, No Frequency, No Incontinence, No Hematuria, No Retention, No Other Musculoskeletal: No other, No neck pain, No shoulder pain, No arm pain, No back pain, No hand pain, No leg pain, No foot pain Skin: No Rash, No Lesions, No Jaundice, No Bruising, No Other Objective Vitals Vital Signs Date Time Temp Pulse Resp B/P (MAP) Pulse Ox O2 Delivery O2 Flow Rate FiO2 05/16/24 09:00 97.4 91 18 138/69 (92) 97 97.4 05/16/24 07:30 Room Air* 0 21 Intake/Output Intake and Output 05/16/24 07:00 Intake Total 3440 ml Balance 3440 ml Intake Oral 2340 ml IV Total 1100 ml # Voids 5 # Bowel Movements 1 Medications Current Medications Medications Dose Ordered Sig/Kurt Route Start Time Stop Time Status Last Admin Dose Admin Ceftriaxone Sodium 50 ml @ 100 mls/hr DAILY@09 IV 05/12/24 09:00 05/16/24 08:44 100 MLS/HR Metronidazole 100 ml @ 100 mls/hr Q8HR IV 05/11/24 22:00 05/16/24 05:51 100 MLS/HR Ibuprofen 600 mg Q6HP PRN PO 05/11/24 21:00 05/13/24 09:10 600 MG Acetaminophen/ Hydrocodone Bitart 1 tab Q4HP PRN PO 05/11/24 21:00 05/16/24 01:50 1 TAB Ondansetron HCl 4 mg Q4HP PRN IV 05/11/24 21:00 05/14/24 18:12 4 MG Docusate Sodium 100 mg BIDPRN PRN PO 05/11/24 21:00 05/14/24 13:48 100 MG Morphine Sulfate 2 mg Q4HPRN PRN IV 05/11/24 21:00 05/12/24 16:47 2 MG Nitroglycerin 0.4 mg Q5MINP PRN SL 05/11/24 23:00 Morphine Sulfate 2 mg Q30M PRN IV 05/11/24 23:00 Bisacodyl 5 mg BIDP PRN PO 05/12/24 15:15 05/14/24 05:25 5 MG Sodium Chloride 1,000 ml @ 150 mls/hr Q6H40M IV 05/12/24 19:15 05/16/24 06:33 150 MLS/HR Vancomycin HCl 125 mg QID PO 05/13/24 18:00 05/15/24 21:05 125 MG Lorazepam 0.5 mg BID PRN PO 05/14/24 14:30 Laboratory Results Laboratory Tests 05/16/24 04:40 Chemistry Test 05/16/24 04:40 Albumin 3.8 g/dL (3.2-4.8) Calcium Level 9.2 mg/dL (8.7-10.4) Total Protein 6.6 g/dL (5.7-8.2) LFT Test 05/16/24 04:40 Alanine Aminotransferase (ALT) 51 U/L (7-40) H Alkaline Phosphatase 117 U/L (46-116) H Aspartate Amino Transferase (AST) 25 U/L (13-40) Total Bilirubin 0.4 mg/dL (0.2-1.0) Urinalysis Test 05/11/24 19:20 Urine Color Yellow (Yellow) Urine Clarity Clear (Clear) Urine pH 5.5 (5.0-9.0) Urine Specific [place] 1.014 (1.001-1.035) Urine Protein Trace (Negative) H Urine Ketones 2+ (Negative) H Urine Blood Negative /uL (Negative) Urine Nitrite Negative (Negative) Urine Bilirubin Negative (Negative) Urine Urobilinogen Normal mg/dL (Negative) Urine Leukocyte Esterase Negative /uL (Negative) Urine RBC <1 /hpf (0 - 3) Urine WBC 4 /hpf (0 - 3) Urine Squamous Epithelial Cells Few /hpf (<5) Urine Bacteria None seen /hpf (None Seen) Urine Glucose Normal mg/dL (Normal) Microbiology Microbiology Date/Time Source Procedure Growth Status 05/11/24 21:11 Blood Blood Culture - Preliminary NO GROWTH AFTER 72 HOURS OF INCUBATION. Resulted Labs and/or images reviewed: Labs reviewed by me, Image(s) reviewed by me Assessment/Plan Assessment/Plan Severe Sepsis secondary to acute colitis blood cultures negative Acute Colitis: IV Rocephin , right Flagyl, p.o. vancomycin GI consult by Dr. Harrington appreciated, ID consult by Dr. Bong Butler appreciated Acute dehydration: IV fluids History of cholecystectomy C diff colitis p.o. vancomycin added to Rocephin and Flagyl, stool for C diff not collected as the stay in the hospital is more than three days, and not allowed per hospital policy Acute appendicitis ruled out Leukocytosis 44 K rule out hematological malignancy, Hematology consult by Dr. Paulson appreciated bone marrow biopsy result pending Patient was seen in [facility] five days ago and discharged with a diagnosis of rhabdomyolysis and acute gastritis Patient's mother lives in [facility] [phone] at bedside Time spent 55 minutes Advanced care planning time 20 minutes Patient is full code Plan discussed with: Patient Date of Service: May 16, 2024 Billing Provider: DEBBIE NESBITT MD Common Visit Codes: [id number] INP/OBS CARE(HIGH) DEBBIE NESBITT MD May 16, 2024 12:28
[2024-05-16] MEDS ORDERED: VANCOMYCIN PER PHARMACY 0 MG IV SCH (23:00)
--- NOTE | 2024-05-16 23:01 | DVHPN2 ---
Consult Progress Note Date Seen: May 16, 2024 Subjective Patient reports: Feels better (anxious, nofever or chills, no pelvic pain) Objective vital signs Vital Sign Date Time Temp Pulse Resp B/P (MAP) Pulse Ox O2 Delivery O2 Flow Rate FiO2 05/16/24 22:00 98.1 68 17 106/48 (67) 96 98.1 05/16/24 20:21 Room Air* 0 21 Total Intake and Output 05/15/24 05/15/24 05/16/24 15:00 23:00 07:00 Intake Total 1640 ml 1800 ml Balance 1640 ml 1800 ml medications Current Medications Medications Dose Ordered Sig/Kurt Route Start Time Stop Time Status Last Admin Dose Admin Ceftriaxone Sodium 50 ml @ 100 mls/hr DAILY@09 IV 05/12/24 09:00 05/16/24 08:44 100 MLS/HR Metronidazole 100 ml @ 100 mls/hr Q8HR IV 05/11/24 22:00 05/16/24 21:25 100 MLS/HR Ibuprofen 600 mg Q6HP PRN PO 05/11/24 21:00 05/16/24 17:16 600 MG Acetaminophen/ Hydrocodone Bitart 1 tab Q4HP PRN PO 05/11/24 21:00 05/16/24 01:50 1 TAB Ondansetron HCl 4 mg Q4HP PRN IV 05/11/24 21:00 05/14/24 18:12 4 MG Docusate Sodium 100 mg BIDPRN PRN PO 05/11/24 21:00 05/14/24 13:48 100 MG Morphine Sulfate 2 mg Q4HPRN PRN IV 05/11/24 21:00 05/12/24 16:47 2 MG Nitroglycerin 0.4 mg Q5MINP PRN SL 05/11/24 23:00 Morphine Sulfate 2 mg Q30M PRN IV 05/11/24 23:00 Bisacodyl 5 mg BIDP PRN PO 05/12/24 15:15 05/14/24 05:25 5 MG Sodium Chloride 1,000 ml @ 150 mls/hr Q6H40M IV 05/12/24 19:15 05/16/24 17:16 150 MLS/HR Vancomycin HCl 125 mg QID PO 05/13/24 18:00 05/16/24 21:25 125 MG Lorazepam 0.5 mg BID PRN PO 05/14/24 14:30 PHYSICAL EXAM: - GENERAL: Alert and oriented x 3. No acute distress. Well-nourished. ? - EYES: EOMI. Anicteric. ?- HENT: Moist mucous membranes. No scleral icterus. No cervical lymphadenopathy. ?- LUNGS: Clear to auscultation bilaterally. No accessory muscle use.? - CARDIOVASCULAR: Regular rate and rhythm. No murmur. No JVD.? - ABDOMEN: Soft, non-tender and non-distended. No palpable masses.? - EXTREMITIES: No edema. Non-tender.?SKIN: No rashes or lesions. Warm. ? - NEUROLOGIC: No focal neurological deficits. CN II-XII grossly intact, but not individually tested.? - PSYCHIATRIC: Cooperative. Appropriate mood and affect. laboratory and microbiology Laboratory Tests 05/16/24 04:40 Test 05/16/24 04:40 Range/Units Serum Glucose 86 74-106 mg/dL Problem List/Assessment/Plan Problem List/Assessment/Plan ID Problem List: - acute abdominal pain - leukocytosis - thrombocytopenia - elevated liver enzymes - possible colitis - generalized weakness Assessment This is a 44 y.o. male with a past medical history of urachal cystectomy, who presents with acute abdominal pain. He was at another facility five days ago and was diagnosed with gastritis and sent home with antibiotics but has not improved. Symptoms have been worsening with associated shortness of breath and nausea. On admission, WBC count was elevated at 27.6 and has continued to rise, reaching up to 48 over the last three days of hospitalization. Platelets have decreased from 82 to 60. AST has improved from 122 to 70. ALT has improved from 237 to 70. Creatinine kinase is 222. Creatinine is 1.26 and has been improving since admission. CT abdomen shows scattered regions; evaluated for C. difficile colitis. Patient was empirically started on Flagyl and ceftriaxone. Vancomycin was added yesterday. Blood cultures are no growth to date. Vital signs are stable, no fevers. Chest X-ray shows no pulmonary disease. Patient was seen by Gastroenterology, who feels that C. difficile is on the differential, likely infectious versus inflammatory disease. 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 per [facility] , if patient has a viral ideology for Rabdo or cytopenia a bore marrow biopsy would help diagnosis this - Agree with colonoscopy , if there is concerning lesion would recommend biopsies to furter evaluate for infectious etiology such as CMMV - Test for HIV - Continue ceftriaxone and Flagyl empirically - Continue stool studies - Proceed with colonoscopy to further evaluate potential colitis - Send for CRP, leukocyte esterase in stool, and stool occult blood - Stop vancomycin - No contraindication to steroid use; defer to GI if indicated in the setting of potential inflammatory bowel disease Plan discussed with: Patient Dietary Evaluation Review Comments: 1) Advance pt diet when medically feasible 2) Continue current plan of care Expected Outcomes/Goals: F/U in 2-3 days JUSTIN QUINTANA MD May 16, 2024 23:01
--- NOTE | 2024-05-16 23:01 | DVHPN2 ---
Consult Progress Note Date Seen: May 15, 2024 Subjective Patient reports: Feels better (no fever or chills, sp bone marrow aspirate) Objective vital signs Vital Sign Date Time Temp Pulse Resp B/P (MAP) Pulse Ox O2 Delivery O2 Flow Rate FiO2 05/16/24 22:00 98.1 68 17 106/48 (67) 96 98.1 05/16/24 20:21 Room Air* 0 21 Total Intake and Output 05/15/24 05/15/24 05/16/24 15:00 23:00 07:00 Intake Total 1640 ml 1800 ml Balance 1640 ml 1800 ml medications Current Medications Medications Dose Ordered Sig/Kurt Route Start Time Stop Time Status Last Admin Dose Admin Ceftriaxone Sodium 50 ml @ 100 mls/hr DAILY@09 IV 05/12/24 09:00 05/16/24 08:44 100 MLS/HR Metronidazole 100 ml @ 100 mls/hr Q8HR IV 05/11/24 22:00 05/16/24 21:25 100 MLS/HR Ibuprofen 600 mg Q6HP PRN PO 05/11/24 21:00 05/16/24 17:16 600 MG Acetaminophen/ Hydrocodone Bitart 1 tab Q4HP PRN PO 05/11/24 21:00 05/16/24 01:50 1 TAB Ondansetron HCl 4 mg Q4HP PRN IV 05/11/24 21:00 05/14/24 18:12 4 MG Docusate Sodium 100 mg BIDPRN PRN PO 05/11/24 21:00 05/14/24 13:48 100 MG Morphine Sulfate 2 mg Q4HPRN PRN IV 05/11/24 21:00 05/12/24 16:47 2 MG Nitroglycerin 0.4 mg Q5MINP PRN SL 05/11/24 23:00 Morphine Sulfate 2 mg Q30M PRN IV 05/11/24 23:00 Bisacodyl 5 mg BIDP PRN PO 05/12/24 15:15 05/14/24 05:25 5 MG Sodium Chloride 1,000 ml @ 150 mls/hr Q6H40M IV 05/12/24 19:15 05/16/24 17:16 150 MLS/HR Vancomycin HCl 125 mg QID PO 05/13/24 18:00 05/16/24 21:25 125 MG Lorazepam 0.5 mg BID PRN PO 05/14/24 14:30 Physical Exam: General: NAD Neck: Supple. No masses. HEENT: PERRL. Normal lids and conjunctiva. Moist mucous membranes. Oropharynx without lesions, exudates or excessive erythema. Normal appearance of the external aspects of the nose and ears. Heart: Regular rhythm, normal rate. No murmur. No lower extremity edema. Lungs: Normal respiratory effort. Clear to auscultation bilaterally. No wheezes. No crackles. Abdomen: Soft. Non-tender. Non-distended. No masses or abdominal hernia. Msk: No digital cyanosis. Normal strength and tone in all 4 limbs. Skin: Warm and dry, no rashes. Lesion on right dorsal foot as described. Neuro: Alert. No facial droop or slurred speech. Extra-ocular movements intact. Sensation intact to soft touch in all 4 limbs. Psych: Appropriate mood. Full affect. Oriented to person, place, time, and situation. Lines: laboratory and microbiology Laboratory Tests 05/16/24 04:40 Test 05/16/24 04:40 Range/Units Serum Glucose 86 74-106 mg/dL Problem List/Assessment/Plan Problem List/Assessment/Plan ID Problem List: - acute abdominal pain - leukocytosis - thrombocytopenia - elevated liver enzymes - possible colitis - generalized weakness Assessment This is a 44 y.o. male with a past medical history of urachal cystectomy, who presents with acute abdominal pain. He was at another facility five days ago and was diagnosed with gastritis and sent home with antibiotics but has not improved. Symptoms have been worsening with associated shortness of breath and nausea. On admission, WBC count was elevated at 27.6 and has continued to rise, reaching up to 48 over the last three days of hospitalization. Platelets have decreased from 82 to 60. AST has improved from 122 to 70. ALT has improved from 237 to 70. Creatinine kinase is 222. Creatinine is 1.26 and has been improving since admission. CT abdomen shows scattered regions; evaluated for C. difficile colitis. Patient was empirically started on Flagyl and ceftriaxone. Vancomycin was added yesterday. Blood cultures are no growth to date. Vital signs are stable, no fevers. Chest X-ray shows no pulmonary disease. Patient was seen by Gastroenterology, who feels that C. difficile is on the differential, likely infectious versus inflammatory disease. 05/14: White count is still elevated and plateles are now in the 40s , unlikely patient is having an infectious colitis due to now diarrhea 05/15: sp aspirate of bone marrow, c.diff negative Plan: - agree with bone marrow biopsy , patients states he was in Rhabdomyolysis possibly last weel per [facility] , if patient has a viral etiology for Rhabdomyolysis or cytopenia a bore marrow biopsy would help diagnosis this - Agree with colonoscopy , if there is concerning lesion would recommend biopsies to further evaluate for infectious etiology such as CMV - Continue ceftriaxone, can stop flagyl - Continue stool studies - Proceed with colonoscopy to further evaluate potential colitis - Send for CRP, leukocyte esterase in stool, and stool occult blood - No contraindication to steroid use; defer to GI if indicated in the setting of potential inflammatory bowel disease Plan discussed with: Patient Dietary Evaluation Review Comments: 1) Advance pt diet when medically feasible 2) Continue current plan of care Expected Outcomes/Goals: F/U in 2-3 days JUSTIN QUINTANA MD May 16, 2024 23:01
[2024-05-16] MEDS: VANCOMYCIN 1GM/200ML PREMIX 200 ML IV SCH (23:19)
[2024-05-17] VITALS (7 sets, daily range): BP systolic 117–128; BP diastolic 68–79; PULSE 72–109; RESP 16–18; TEMP 97.6–98; O2SAT 93–98
[2024-05-17 06:27] LABS: Hemoglobin 13.5 g/dL (13.5-17.5); Mean Corpuscular Hemoglobin 29.7 pg (28.0-32.0); Mean Corpuscular Hgb Conc. 33.9 g/dL (32.0-36.0); Mean Corpuscular Volume 87.8 fL (80.0-100.0); Platelet Count (auto) 47 10^3/uL (140-450); Red Blood Cells 4.56 10^6/uL (4.5-5.90); Red Cell Distribution Width 13.9 % (11.8-14.3)
[2024-05-17 06:32] LABS: White Blood Cell 63.7 10^3/uL (4.4-10.8)
[2024-05-17 06:33] LABS: Band Neutrophils % (manual) 0; Basophils % (manual) 0 (0.0-2.0); Blast Cells 0; Metamyelocytes % 0; Myelocytes % 0; Promyelocytes % 0; Reactive Lymphocytes 0
[2024-05-17 06:45] LABS: Albumin 3.6 g/dL (3.2-4.8); Alkaline Phosphatase 110 U/L (46-116); Anion Gap 10 (5-15); Aspartate Aminotransferase 28 U/L (13-40); BUN/Creatinine Ratio 7.9 (10.0-20.0); Bilirubin, Total 0.4 mg/dL (0.2-1.0); Calcium 9.2 mg/dL (8.7-10.4); Carbon Dioxide 21 mmol/L (20-31); Glucose 87 mg/dL (74-106); Potassium 3.9 mmol/L (3.5-5.1); Sodium 140 mmol/L (136-145); Total Protein 6.5 g/dL (5.7-8.2)
[2024-05-17 06:48] LABS: Blood Urea Nitrogen 8 mg/dL (9-23); Chloride 109 mmol/L (98-107)
[2024-05-17 06:49] LABS: Alanine Aminotransferase 46 U/L (7-40)
[2024-05-17 08:00] LABS: Eosinophils % (manual) 1 (0-7); Lymphocytes % (manual) 12 (10.0-50.0); Monocytes % (manual) 76 (0-12)
[2024-05-17 08:01] LABS: Platelet Estimate Decreased; RBC Morphology Normal
--- NOTE | 2024-05-17 13:19 | DVHPN2 ---
Reviewed: Care Plan, H&P, Labs, Medications, Previous Orders, Radiology Changes from previous H/P or p: No Changes Eyes: No Pain, No Vision change, No Conjunctivae inflammation, No Eyelid inflammation, No Other, No Redness ENT: No Ear pain, No Ear discharge, No Nose pain, No Nose discharge, No Nose congestion, No Mouth pain, No Mouth swelling, No Throat pain, No Throat swelling, No Other Cardiovascular: No Chest Pain, No Palpitations, No Orthopnea, No Paroxysmal Noc. Dyspnea, No Edema, No Lt Headedness, No Other Respiratory: No Cough, No Dry; Shortness of breath; No SOB with excertion, No Wheezing, No Hemoptysis, No Pleuritic Pain, No Sputum, No Other Gastrointestinal: Nausea; No Vomiting; Abdominal Pain; No Diarrhea, No Constipation, No Melena, No Hematochezia, No Other Genitourinary: No Dysuria, No Frequency, No Incontinence, No Hematuria, No Retention, No Other Musculoskeletal: No other, No neck pain, No shoulder pain, No arm pain, No back pain, No hand pain, No leg pain, No foot pain Skin: No Rash, No Lesions, No Jaundice, No Bruising, No Other Objective Vitals Vital Signs Date Time Temp Pulse Resp B/P (MAP) Pulse Ox O2 Delivery O2 Flow Rate FiO2 05/17/24 09:00 97.6 72 18 118/78 (91) 98 97.6 05/17/24 07:30 Room Air* 0 21 Intake/Output Intake and Output 05/17/24 07:00 Intake Total 1520 ml Balance 1520 ml Intake Oral 1020 ml IV Total 500 ml # Voids 4 Medications Current Medications Medications Dose Ordered Sig/Kurt Route Start Time Stop Time Status Last Admin Dose Admin Ceftriaxone Sodium 50 ml @ 100 mls/hr DAILY@09 IV 05/12/24 09:00 05/17/24 08:28 100 MLS/HR Ibuprofen 600 mg Q6HP PRN PO 05/11/24 21:00 05/16/24 23:19 600 MG Acetaminophen/ Hydrocodone Bitart 1 tab Q4HP PRN PO 05/11/24 21:00 05/16/24 01:50 1 TAB Ondansetron HCl 4 mg Q4HP PRN IV 05/11/24 21:00 05/14/24 18:12 4 MG Docusate Sodium 100 mg BIDPRN PRN PO 05/11/24 21:00 05/14/24 13:48 100 MG Morphine Sulfate 2 mg Q4HPRN PRN IV 05/11/24 21:00 05/12/24 16:47 2 MG Nitroglycerin 0.4 mg Q5MINP PRN SL 05/11/24 23:00 Morphine Sulfate 2 mg Q30M PRN IV 05/11/24 23:00 Bisacodyl 5 mg BIDP PRN PO 05/12/24 15:15 05/14/24 05:25 5 MG Sodium Chloride 1,000 ml @ 150 mls/hr Q6H40M IV 05/12/24 19:15 05/17/24 12:22 150 MLS/HR Lorazepam 0.5 mg BID PRN PO 05/14/24 14:30 Vancomycin HCl 0 ml @ 0 mls/hr UD IV 05/16/24 23:00 Laboratory Results Laboratory Tests 05/17/24 05:16 Chemistry Test 05/17/24 05:16 Albumin 3.6 g/dL (3.2-4.8) Calcium Level 9.2 mg/dL (8.7-10.4) Total Protein 6.5 g/dL (5.7-8.2) LFT Test 05/17/24 05:16 Alanine Aminotransferase (ALT) 46 U/L (7-40) H Alkaline Phosphatase 110 U/L (46-116) Aspartate Amino Transferase (AST) 28 U/L (13-40) Total Bilirubin 0.4 mg/dL (0.2-1.0) Urinalysis Test 05/11/24 19:20 Urine Color Yellow (Yellow) Urine Clarity Clear (Clear) Urine pH 5.5 (5.0-9.0) Urine Specific [place] 1.014 (1.001-1.035) Urine Protein Trace (Negative) H Urine Ketones 2+ (Negative) H Urine Blood Negative /uL (Negative) Urine Nitrite Negative (Negative) Urine Bilirubin Negative (Negative) Urine Urobilinogen Normal mg/dL (Negative) Urine Leukocyte Esterase Negative /uL (Negative) Urine RBC <1 /hpf (0 - 3) Urine WBC 4 /hpf (0 - 3) Urine Squamous Epithelial Cells Few /hpf (<5) Urine Bacteria None seen /hpf (None Seen) Urine Glucose Normal mg/dL (Normal) Microbiology Microbiology Date/Time Source Procedure Growth Status 05/11/24 21:11 Blood Blood Culture - Final NO GROWTH AFTER 5 DAYS OF INCUBATION. Complete Labs and/or images reviewed: Labs reviewed by me, Image(s) reviewed by me Assessment/Plan Assessment/Plan Severe Sepsis secondary to acute colitis blood cultures negative Acute Colitis: IV Rocephin , IV Flagyl, vancomycin stopped per ID recommendation, GI consult by Dr. Harrington appreciated, ID consult by Dr. Bong Butler appreciated Acute dehydration: IV fluids History of cholecystectomy C diff colitis p.o. vancomycin added to Rocephin and Flagyl, stool for C diff not collected as the stay in the hospital is more than three days, and not allowed per hospital policy Acute appendicitis ruled out Leukocytosis 44 K rule out hematological malignancy, Hematology consult by Dr. Paulson appreciated bone marrow biopsy result pending, WBC count went up to 66 K Patient was seen in [facility] five days ago and discharged with a diagnosis of rhabdomyolysis and acute gastritis Patient's mother lives in [facility] [phone] at bedside Time spent 55 minutes Advanced care planning time 20 minutes Patient is full code Plan discussed with: Patient Date of Service: May 17, 2024 Billing Provider: DEBBIE NESBITT MD Common Visit Codes: [id number] INP/OBS CARE(HIGH) DEBBIE NESBITT MD May 17, 2024 13:19
--- NOTE | 2024-05-17 23:33 | DVHPN2 ---
Consult Progress Note Date Seen: May 17, 2024 Subjective Patient reports: Feels better (no diarrhea or rash) Objective vital signs Vital Sign Date Time Temp Pulse Resp B/P (MAP) Pulse Ox O2 Delivery O2 Flow Rate FiO2 05/17/24 21:00 98.0 82 16 117/72 (87) 95 98.0 05/17/24 07:30 Room Air* 0 21 Total Intake and Output 05/16/24 05/16/24 05/17/24 15:00 23:00 07:00 Intake Total 560 ml 960 ml Balance 560 ml 960 ml medications Current Medications Medications Dose Ordered Sig/Kurt Route Start Time Stop Time Status Last Admin Dose Admin Ceftriaxone Sodium 50 ml @ 100 mls/hr DAILY@09 IV 05/12/24 09:00 05/17/24 08:28 100 MLS/HR Ibuprofen 600 mg Q6HP PRN PO 05/11/24 21:00 05/17/24 18:45 600 MG Acetaminophen/ Hydrocodone Bitart 1 tab Q4HP PRN PO 05/11/24 21:00 05/16/24 01:50 1 TAB Ondansetron HCl 4 mg Q4HP PRN IV 05/11/24 21:00 05/14/24 18:12 4 MG Docusate Sodium 100 mg BIDPRN PRN PO 05/11/24 21:00 05/14/24 13:48 100 MG Morphine Sulfate 2 mg Q4HPRN PRN IV 05/11/24 21:00 05/12/24 16:47 2 MG Nitroglycerin 0.4 mg Q5MINP PRN SL 05/11/24 23:00 Morphine Sulfate 2 mg Q30M PRN IV 05/11/24 23:00 Bisacodyl 5 mg BIDP PRN PO 05/12/24 15:15 05/14/24 05:25 5 MG Sodium Chloride 1,000 ml @ 150 mls/hr Q6H40M IV 05/12/24 19:15 05/17/24 20:54 150 MLS/HR Lorazepam 0.5 mg BID PRN PO 05/14/24 14:30 laboratory and microbiology Laboratory Tests 05/17/24 05:16 Test 05/17/24 05:16 Range/Units Serum Glucose 87 74-106 mg/dL Problem List/Assessment/Plan Problem List/Assessment/Plan ID Problem List: - acute abdominal pain - leukocytosis - thrombocytopenia - elevated liver enzymes - possible colitis - generalized weakness Assessment This is a 44 y.o. male with a past medical history of urachal cystectomy, who presents with acute abdominal pain. He was at another facility five days ago and was diagnosed with gastritis and sent home with antibiotics but has not improved. Symptoms have been worsening with associated shortness of breath and nausea. On admission, WBC count was elevated at 27.6 and has continued to rise, reaching up to 48 over the last three days of hospitalization. Platelets have decreased from 82 to 60. AST has improved from 122 to 70. ALT has improved from 237 to 70. Creatinine kinase is 222. Creatinine is 1.26 and has been improving since admission. CT abdomen shows scattered regions; evaluated for C. difficile colitis. Patient was empirically started on Flagyl and ceftriaxone. Vancomycin was added yesterday. Blood cultures are no growth to date. Vital signs are stable, no fevers. Chest X-ray shows no pulmonary disease. Patient was seen by Gastroenterology, who feels that C. difficile is on the differential, likely infectious versus inflammatory disease. 05/14: White count is still elevated and plateles are now in the 40s , unlikely patient is having an infectious colitis due to now diarrhea 05/15: sp aspirate of bone marrow, c.diff negative 05/17: worsening leukocytosis, monocytosis Plan: - agree with bone marrow biopsy , patients states he was in Rhabdomyolysis possibly last weel per [facility] , if patient has a viral etiology for Rhabdomyolysis or cytopenia a bore marrow biopsy would help diagnosis this - Agree with colonoscopy , if there is concerning lesion would recommend biopsies to further evaluate for infectious etiology such as CMV - Continue ceftriaxone - Continue stool studies - Proceed with colonoscopy to further evaluate potential colitis - Send for CRP, leukocyte esterase in stool, and stool occult blood - No contraindication to steroid use; defer to GI if indicated in the setting of potential inflammatory bowel disease Plan discussed with: Patient Dietary Evaluation Review Comments: 1) Advance pt diet when medically feasible 2) Continue current plan of care Expected Outcomes/Goals: F/U in 2-3 days JUSTIN QUINTANA MD May 17, 2024 23:33
[2024-05-18] VITALS (8 sets, daily range): BP systolic 108–149; BP diastolic 62–96; PULSE 72–92; RESP 15–20; TEMP 97.7–98.4; O2SAT 94–98
[2024-05-18 08:06] LABS: Hematocrit 40.9 % (41.0-53.0); Hemoglobin 13.8 g/dL (13.5-17.5); Mean Corpuscular Hemoglobin 29.2 pg (28.0-32.0); Mean Corpuscular Hgb Conc. 33.7 g/dL (32.0-36.0); Mean Corpuscular Volume 86.9 fL (80.0-100.0); Platelet Count (auto) 40 10^3/uL (140-450); Red Cell Distribution Width 14.1 % (11.8-14.3)
[2024-05-18 08:14] LABS: White Blood Cell 77.5 10^3/uL (4.4-10.8)
[2024-05-18 08:16] LABS: Band Neutrophils % (manual) 0; Basophils % (manual) 0 (0.0-2.0); Blast Cells 0; Metamyelocytes % 0; Myelocytes % 0; Promyelocytes % 0; Reactive Lymphocytes 0
[2024-05-18 08:20] LABS: Alkaline Phosphatase 113 U/L (46-116); Anion Gap 12 (5-15); BUN/Creatinine Ratio 5.9 (10.0-20.0); Calcium 9.2 mg/dL (8.7-10.4); Carbon Dioxide 21 mmol/L (20-31); Glucose 90 mg/dL (74-106); Potassium 3.9 mmol/L (3.5-5.1); Sodium 140 mmol/L (136-145)
[2024-05-18 08:21] LABS: Albumin 3.8 g/dL (3.2-4.8); Aspartate Aminotransferase 25 U/L (13-40)
[2024-05-18 08:22] LABS: Bilirubin, Total 0.5 mg/dL (0.2-1.0); Total Protein 6.7 g/dL (5.7-8.2)
[2024-05-18 08:33] LABS: Alanine Aminotransferase 44 U/L (7-40); Blood Urea Nitrogen 6 mg/dL (9-23); Chloride 107 mmol/L (98-107)
[2024-05-18 09:10] LABS: Eosinophils % (manual) 1 (0-7); Lymphocytes % (manual) 12 (10.0-50.0); Monocytes % (manual) 80 (0-12)
[2024-05-18 09:11] LABS: Platelet Estimate Decreased
--- NOTE | 2024-05-18 10:43 | DVHPN2 ---
Reviewed: Care Plan, H&P, Labs, Medications, Previous Orders, Radiology Changes from previous H/P or p: No Changes Eyes: No Pain, No Vision change, No Conjunctivae inflammation, No Eyelid inflammation, No Other, No Redness ENT: No Ear pain, No Ear discharge, No Nose pain, No Nose discharge, No Nose congestion, No Mouth pain, No Mouth swelling, No Throat pain, No Throat swelling, No Other Cardiovascular: No Chest Pain, No Palpitations, No Orthopnea, No Paroxysmal Noc. Dyspnea, No Edema, No Lt Headedness, No Other Respiratory: No Cough, No Dry; Shortness of breath; No SOB with excertion, No Wheezing, No Hemoptysis, No Pleuritic Pain, No Sputum, No Other Gastrointestinal: Nausea; No Vomiting; Abdominal Pain; No Diarrhea, No Constipation, No Melena, No Hematochezia, No Other Genitourinary: No Dysuria, No Frequency, No Incontinence, No Hematuria, No Retention, No Other Musculoskeletal: No other, No neck pain, No shoulder pain, No arm pain, No back pain, No hand pain, No leg pain, No foot pain Skin: No Rash, No Lesions, No Jaundice, No Bruising, No Other Objective Vitals Vital Signs Date Time Temp Pulse Resp B/P (MAP) Pulse Ox O2 Delivery O2 Flow Rate FiO2 05/18/24 08:15 82 16 97 Room Air* 0 21 05/18/24 05:00 98.3 129/84 (99) 98.3 Intake/Output Intake and Output 05/18/24 07:00 Intake Total 1150 ml Balance 1150 ml Intake Oral 1150 ml # Voids 4 # Bowel Movements 1 Medications Current Medications Medications Dose Ordered Sig/Kurt Route Start Time Stop Time Status Last Admin Dose Admin Ceftriaxone Sodium 50 ml @ 100 mls/hr DAILY@09 IV 05/12/24 09:00 05/18/24 09:27 100 MLS/HR Ibuprofen 600 mg Q6HP PRN PO 05/11/24 21:00 05/18/24 06:43 600 MG Acetaminophen/ Hydrocodone Bitart 1 tab Q4HP PRN PO 05/11/24 21:00 05/16/24 01:50 1 TAB Ondansetron HCl 4 mg Q4HP PRN IV 05/11/24 21:00 05/14/24 18:12 4 MG Docusate Sodium 100 mg BIDPRN PRN PO 05/11/24 21:00 05/14/24 13:48 100 MG Morphine Sulfate 2 mg Q4HPRN PRN IV 05/11/24 21:00 05/12/24 16:47 2 MG Nitroglycerin 0.4 mg Q5MINP PRN SL 05/11/24 23:00 Morphine Sulfate 2 mg Q30M PRN IV 05/11/24 23:00 Bisacodyl 5 mg BIDP PRN PO 05/12/24 15:15 05/14/24 05:25 5 MG Sodium Chloride 1,000 ml @ 150 mls/hr Q6H40M IV 05/12/24 19:15 05/17/24 20:54 150 MLS/HR Lorazepam 0.5 mg BID PRN PO 05/14/24 14:30 Laboratory Results Laboratory Tests 05/18/24 07:16 Chemistry Test 05/18/24 07:16 Albumin 3.8 g/dL (3.2-4.8) Calcium Level 9.2 mg/dL (8.7-10.4) Total Protein 6.7 g/dL (5.7-8.2) LFT Test 05/18/24 07:16 Alanine Aminotransferase (ALT) 44 U/L (7-40) H Alkaline Phosphatase 113 U/L (46-116) Aspartate Amino Transferase (AST) 25 U/L (13-40) Total Bilirubin 0.5 mg/dL (0.2-1.0) Urinalysis Test 05/11/24 19:20 Urine Color Yellow (Yellow) Urine Clarity Clear (Clear) Urine pH 5.5 (5.0-9.0) Urine Specific [place] 1.014 (1.001-1.035) Urine Protein Trace (Negative) H Urine Ketones 2+ (Negative) H Urine Blood Negative /uL (Negative) Urine Nitrite Negative (Negative) Urine Bilirubin Negative (Negative) Urine Urobilinogen Normal mg/dL (Negative) Urine Leukocyte Esterase Negative /uL (Negative) Urine RBC <1 /hpf (0 - 3) Urine WBC 4 /hpf (0 - 3) Urine Squamous Epithelial Cells Few /hpf (<5) Urine Bacteria None seen /hpf (None Seen) Urine Glucose Normal mg/dL (Normal) Microbiology Microbiology Date/Time Source Procedure Growth Status 05/15/24 11:00 Stool Clostridium difficile Toxin Assay - Final Complete 05/11/24 21:11 Blood Blood Culture - Final NO GROWTH AFTER 5 DAYS OF INCUBATION. Complete Labs and/or images reviewed: Labs reviewed by me, Image(s) reviewed by me Assessment/Plan Assessment/Plan Severe Sepsis secondary to acute colitis blood cultures negative Acute Colitis: IV Rocephin , IV Flagyl, vancomycin stopped per ID recommendation, GI consult by Dr. Harrington appreciated, ID consult by Dr. Bong Butler appreciated [place] [id number] [place] [id number], will monitor Acute dehydration: IV fluids History of cholecystectomy C diff colitis p.o. vancomycin added to Rocephin and Flagyl, stool for C diff not collected as the stay in the hospital is more than three days, and not allowed per hospital policy Acute appendicitis ruled out Leukocytosis 44 K rule out hematological malignancy, Hematology consult by Dr. Paulson appreciated bone marrow biopsy result pending, WBC count went up to 77 K Patient was seen in [facility] five days ago and discharged with a diagnosis of rhabdomyolysis and acute gastritis Patient's mother lives in [facility] [phone] at bedside Time spent 55 minutes Advanced care planning time 20 minutes Start soft diet Patient is full code Awaiting bone marrow biopsy report Plan discussed with: Patient Date of Service: May 18, 2024 Billing Provider: DEBBIE NESBITT MD Common Visit Codes: [id number] INP/OBS CARE(HIGH) DEBBIE NESBITT MD May 18, 2024 10:43
--- NOTE | 2024-05-18 23:42 | DVHPN2 ---
Consult Progress Note Date Seen: May 18, 2024 Subjective Patient reports: Other (concerned about plan of care and feels unclear on what is going on , informed patient about patients high white count of 77 and awaiting bone marrow labs for results and discussed plan with patients mother . Having some hypertension ) Objective vital signs Vital Sign Date Time Temp Pulse Resp B/P (MAP) Pulse Ox O2 Delivery O2 Flow Rate FiO2 05/18/24 20:59 98.4 89 20 131/95 (107) 98 98.4 05/18/24 08:15 Room Air* 0 21 Total Intake and Output 05/17/24 05/17/24 05/18/24 15:00 23:00 07:00 Intake Total 800 ml 350 ml Balance 800 ml 350 ml medications Current Medications Medications Dose Ordered Sig/Kurt Route Start Time Stop Time Status Last Admin Dose Admin Ceftriaxone Sodium 50 ml @ 100 mls/hr DAILY@09 IV 05/12/24 09:00 05/18/24 09:27 100 MLS/HR Ibuprofen 600 mg Q6HP PRN PO 05/11/24 21:00 05/18/24 16:07 600 MG Acetaminophen/ Hydrocodone Bitart 1 tab Q4HP PRN PO 05/11/24 21:00 05/16/24 01:50 1 TAB Ondansetron HCl 4 mg Q4HP PRN IV 05/11/24 21:00 05/14/24 18:12 4 MG Docusate Sodium 100 mg BIDPRN PRN PO 05/11/24 21:00 05/14/24 13:48 100 MG Morphine Sulfate 2 mg Q4HPRN PRN IV 05/11/24 21:00 05/12/24 16:47 2 MG Nitroglycerin 0.4 mg Q5MINP PRN SL 05/11/24 23:00 Morphine Sulfate 2 mg Q30M PRN IV 05/11/24 23:00 Bisacodyl 5 mg BIDP PRN PO 05/12/24 15:15 05/14/24 05:25 5 MG Sodium Chloride 1,000 ml @ 150 mls/hr Q6H40M IV 05/12/24 19:15 05/18/24 21:59 150 MLS/HR Lorazepam 0.5 mg BID PRN PO 05/14/24 14:30 laboratory and microbiology Laboratory Tests 05/18/24 07:16 Test 05/18/24 07:16 Range/Units Serum Glucose 90 74-106 mg/dL Problem List/Assessment/Plan Problems(with codes): (1) Leukocytosis, unspecified (2) Generalized weakness (3) Abdominal pain (4) Thrombocytopenia (5) Leukocytosis Problem List/Assessment/Plan ID Problem List: - acute abdominal pain - leukocytosis - thrombocytopenia - elevated liver enzymes - possible colitis - generalized weakness Assessment This is a 44 y.o. male with a past medical history of urachal cystectomy, who presents with acute abdominal pain. He was at another facility five days ago and was diagnosed with gastritis and sent home with antibiotics but has not improved. Symptoms have been worsening with associated shortness of breath and nausea. On admission, WBC count was elevated at 27.6 and has continued to rise, reaching up to 48 over the last three days of hospitalization. Platelets have decreased from 82 to 60. AST has improved from 122 to 70. ALT has improved from 237 to 70. Creatinine kinase is 222. Creatinine is 1.26 and has been improving since admission. CT abdomen shows scattered regions; evaluated for C. difficile colitis. Patient was empirically started on Flagyl and ceftriaxone. Vancomycin was added yesterday. Blood cultures are no growth to date. Vital signs are stable, no fevers. Chest X-ray shows no pulmonary disease. Patient was seen by Gastroenterology, who feels that C. difficile is on the differential, likely infectious versus inflammatory disease. 05/14: White count is still elevated and plateles are now in the 40s , unlikely patient is having an infectious colitis due to now diarrhea 05/15: sp aspirate of bone marrow, c.diff negative 05/17: worsening leukocytosis, monocytosis 05/18: white count is 77.5 , very monocyte predominate , favoring a noninfectious ideology Plan: - follow up on bore marrow biopsy - defer to hematology oncology for management of severe leukocytosis and elevated monocytes , suspect maligancy at this time less likely to be an infectious ideology - Continue ceftriaxone Plan discussed with: Other Dietary Evaluation Review Comments: 1) Advance pt diet when medically feasible 2) Continue current plan of care Expected Outcomes/Goals: F/U in 2-3 days JUSTIN QUINTANA MD May 18, 2024 23:42
[2024-05-19] VITALS (7 sets, daily range): BP systolic 110–130; BP diastolic 74–85; PULSE 78–88; RESP 18–20; TEMP 98.1–98.4; O2SAT 91–100
[2024-05-19 05:47] LABS: Hemoglobin 12.8 g/dL (13.5-17.5); Mean Corpuscular Volume 87.6 fL (80.0-100.0)
[2024-05-19 05:52] LABS: Hematocrit 37.8 % (41.0-53.0); Mean Corpuscular Hemoglobin 29.6 pg (28.0-32.0); Mean Corpuscular Hgb Conc. 33.8 g/dL (32.0-36.0); Platelet Count (auto) 36 10^3/uL (140-450); Red Blood Cells 4.32 10^6/uL (4.5-5.90)
[2024-05-19 06:01] LABS: Alanine Aminotransferase 37 U/L (7-40); Albumin 3.7 g/dL (3.2-4.8); Alkaline Phosphatase 107 U/L (46-116); Anion Gap 12 (5-15); Aspartate Aminotransferase 26 U/L (13-40); BUN/Creatinine Ratio 6.4 (10.0-20.0); Bilirubin, Total 0.4 mg/dL (0.2-1.0); Blood Urea Nitrogen 7 mg/dL (9-23); Carbon Dioxide 20 mmol/L (20-31); Chloride 111 mmol/L (98-107); Glucose 94 mg/dL (74-106); Potassium 3.8 mmol/L (3.5-5.1); Sodium 143 mmol/L (136-145); Total Protein 6.3 g/dL (5.7-8.2)
[2024-05-19 06:06] LABS: Basophils % (manual) 0 (0.0-2.0); Blast Cells 0; Eosinophils % (manual) 0 (0-7); Metamyelocytes % 0; Myelocytes % 0; Promyelocytes % 0; Reactive Lymphocytes 0; White Blood Cell 87.8 10^3/uL (4.4-10.8)
[2024-05-19 08:06] LABS: Band Neutrophils % (manual) 2
[2024-05-19 08:07] LABS: Lymphocytes % (manual) 10 (10.0-50.0); Monocytes % (manual) 83 (0-12)
[2024-05-19 08:09] LABS: Platelet Estimate Decreased
--- NOTE | 2024-05-19 12:03 | DVHPN2 ---
Reviewed: Care Plan, H&P, Labs, Medications, Previous Orders, Radiology Changes from previous H/P or p: No Changes Eyes: No Pain, No Vision change, No Conjunctivae inflammation, No Eyelid inflammation, No Other, No Redness ENT: No Ear pain, No Ear discharge, No Nose pain, No Nose discharge, No Nose congestion, No Mouth pain, No Mouth swelling, No Throat pain, No Throat swelling, No Other Cardiovascular: No Chest Pain, No Palpitations, No Orthopnea, No Paroxysmal Noc. Dyspnea, No Edema, No Lt Headedness, No Other Respiratory: No Cough, No Dry; Shortness of breath; No SOB with excertion, No Wheezing, No Hemoptysis, No Pleuritic Pain, No Sputum, No Other Gastrointestinal: Nausea; No Vomiting; Abdominal Pain; No Diarrhea, No Constipation, No Melena, No Hematochezia, No Other Genitourinary: No Dysuria, No Frequency, No Incontinence, No Hematuria, No Retention, No Other Musculoskeletal: No other, No neck pain, No shoulder pain, No arm pain, No back pain, No hand pain, No leg pain, No foot pain Skin: No Rash, No Lesions, No Jaundice, No Bruising, No Other Objective Vitals Vital Signs Date Time Temp Pulse Resp B/P (MAP) Pulse Ox O2 Delivery O2 Flow Rate FiO2 05/19/24 09:07 98.4 84 18 125/77 (93) 100 98.4 05/19/24 08:00 Room Air* 0 21 Intake/Output Intake and Output 05/19/24 07:00 Intake Total 2270 ml Output Total 800 ml Balance 1470 ml Intake Oral 1620 ml IV Total 650 ml Output Urine Total 800 ml # Voids 4 # Bowel Movements 2 Medications Current Medications Medications Dose Ordered Sig/Kurt Route Start Time Stop Time Status Last Admin Dose Admin Ceftriaxone Sodium 50 ml @ 100 mls/hr DAILY@09 IV 05/12/24 09:00 05/19/24 10:12 100 MLS/HR Ibuprofen 600 mg Q6HP PRN PO 05/11/24 21:00 05/19/24 05:01 600 MG Acetaminophen/ Hydrocodone Bitart 1 tab Q4HP PRN PO 05/11/24 21:00 05/19/24 10:28 1 TAB Ondansetron HCl 4 mg Q4HP PRN IV 05/11/24 21:00 05/14/24 18:12 4 MG Docusate Sodium 100 mg BIDPRN PRN PO 05/11/24 21:00 05/14/24 13:48 100 MG Morphine Sulfate 2 mg Q4HPRN PRN IV 05/11/24 21:00 05/12/24 16:47 2 MG Nitroglycerin 0.4 mg Q5MINP PRN SL 05/11/24 23:00 Morphine Sulfate 2 mg Q30M PRN IV 05/11/24 23:00 Bisacodyl 5 mg BIDP PRN PO 05/12/24 15:15 05/14/24 05:25 5 MG Sodium Chloride 1,000 ml @ 150 mls/hr Q6H40M IV 05/12/24 19:15 05/19/24 04:25 150 MLS/HR Lorazepam 0.5 mg BID PRN PO 05/14/24 14:30 Laboratory Results Laboratory Tests 05/19/24 05:27 Chemistry Test 05/19/24 05:27 Albumin 3.7 g/dL (3.2-4.8) Calcium Level 9.0 mg/dL (8.7-10.4) Total Protein 6.3 g/dL (5.7-8.2) LFT Test 05/19/24 05:27 Alanine Aminotransferase (ALT) 37 U/L (7-40) Alkaline Phosphatase 107 U/L (46-116) Aspartate Amino Transferase (AST) 26 U/L (13-40) Total Bilirubin 0.4 mg/dL (0.2-1.0) Urinalysis Test 05/11/24 19:20 Urine Color Yellow (Yellow) Urine Clarity Clear (Clear) Urine pH 5.5 (5.0-9.0) Urine Specific [place] 1.014 (1.001-1.035) Urine Protein Trace (Negative) H Urine Ketones 2+ (Negative) H Urine Blood Negative /uL (Negative) Urine Nitrite Negative (Negative) Urine Bilirubin Negative (Negative) Urine Urobilinogen Normal mg/dL (Negative) Urine Leukocyte Esterase Negative /uL (Negative) Urine RBC <1 /hpf (0 - 3) Urine WBC 4 /hpf (0 - 3) Urine Squamous Epithelial Cells Few /hpf (<5) Urine Bacteria None seen /hpf (None Seen) Urine Glucose Normal mg/dL (Normal) Microbiology Microbiology Date/Time Source Procedure Growth Status 05/15/24 11:00 Stool Clostridium difficile Toxin Assay - Final Complete 05/11/24 21:11 Blood Blood Culture - Final NO GROWTH AFTER 5 DAYS OF INCUBATION. Complete Labs and/or images reviewed: Labs reviewed by me, Image(s) reviewed by me Assessment/Plan Assessment/Plan Severe Sepsis secondary to acute colitis blood cultures negative Acute Colitis: IV Rocephin , IV Flagyl, vancomycin stopped per ID recommendation, GI consult by Dr. Harrington appreciated, ID consult by Dr. Bong Butler appreciated Acute thrombocytopenia platelets down to 37 k from 87 k Acute dehydration: IV fluids History of cholecystectomy C diff colitis p.o. vancomycin added to Rocephin and Flagyl, stool for C diff not collected as the stay in the hospital is more than three days, and not allowed per hospital policy Acute appendicitis ruled out Leukocytosis 44 K rule out hematological malignancy, Hematology consult by Dr. Paulson appreciated bone marrow biopsy result pending, WBC count went up to 87 K Patient was seen in [facility] five days ago and discharged with a diagnosis of rhabdomyolysis and acute gastritis Patient's mother lives in [facility] [phone] at bedside Time spent 55 minutes Advanced care planning time 20 minutes Start soft diet Patient is full code Awaiting bone marrow biopsy report Complaining of right flank pain we will do kidney ultrasound Plan discussed with: Patient Date of Service: May 19, 2024 Billing Provider: DEBBIE NESBITT MD Common Visit Codes: [id number] INP/OBS CARE(HIGH) EDBBIE NESBITT MD May 19, 2024 12:03
--- NOTE | 2024-05-19 14:04 | DVH ---
CLINICAL INFORMATION: 44 years old, Male; Right flank pain. TECHNIQUE: Grayscale sonographic imaging of the kidneys and bladder was performed, assisted by color Doppler technique. COMPARISON: None FINDINGS: The right kidney measures 12.1 cm in length. No hydronephrosis. Unremarkable cortical th ickness and echogenicity. The left kidney measures 11.6 cm in length. No hydronephrosis. Unremarkable cortical thickness and echogenicity. Prevoid bladder volume measured 272 mL. Bladder wall measures 3.5 mm in thickness, at the upper limit s of normal. Prostate measures 5.2 x 3.2 x 3.0 cm, with a volume of 27 mL. IMPRESSION: 1. No hydronephrosis. 2. Enlarged prostate with mild impression on the bladder base.
[2024-05-19] MEDS: LORazepam 0.5 MG TAB PO PRN (20:15)
[2024-05-20] VITALS (11 sets, daily range): BP systolic 112–130; BP diastolic 63–87; PULSE 67–97; RESP 16–21; TEMP 97.5–98.5; O2SAT 93–100
[2024-05-20 07:23] LABS: Hematocrit 38.3 % (41.0-53.0); Hemoglobin 12.8 g/dL (13.5-17.5); Mean Corpuscular Hemoglobin 29.2 pg (28.0-32.0); Mean Corpuscular Hgb Conc. 33.3 g/dL (32.0-36.0); Mean Corpuscular Volume 87.5 fL (80.0-100.0); Platelet Count (auto) 30 10^3/uL (140-450); Red Blood Cells 4.38 10^6/uL (4.5-5.90); Red Cell Distribution Width 14.6 % (11.8-14.3)
[2024-05-20 07:30] LABS: Anion Gap 9 (5-15); BUN/Creatinine Ratio 5.1 (10.0-20.0); Calcium 9.4 mg/dL (8.7-10.4); Carbon Dioxide 25 mmol/L (20-31); Glucose 82 mg/dL (74-106); Sodium 142 mmol/L (136-145)
[2024-05-20 07:31] LABS: Albumin 3.6 g/dL (3.2-4.8); Aspartate Aminotransferase 33 U/L (13-40); Bilirubin, Total 0.5 mg/dL (0.2-1.0); Total Protein 6.5 g/dL (5.7-8.2)
[2024-05-20 07:32] LABS: White Blood Cell 115.5 10^3/uL (4.4-10.8)
[2024-05-20 07:34] LABS: Basophils % (manual) 0 (0.0-2.0); Blast Cells 0; Metamyelocytes % 0; Myelocytes % 0; Promyelocytes % 0; Reactive Lymphocytes 0
[2024-05-20 07:43] LABS: Alanine Aminotransferase 41 U/L (7-40); Alkaline Phosphatase 132 U/L (46-116); Blood Urea Nitrogen 6 mg/dL (9-23); Chloride 108 mmol/L (98-107)
[2024-05-20 09:25] LABS: Band Neutrophils % (manual) 3; Eosinophils % (manual) 1 (0-7); Lymphocytes % (manual) 5 (10.0-50.0); Monocytes % (manual) 90 (0-12)
[2024-05-20 09:26] LABS: Platelet Estimate Decreased
--- NOTE | 2024-05-20 12:31 | DVHPN2 ---
Reviewed: Care Plan, H&P, Labs, Medications, Previous Orders, Radiology Changes from previous H/P or p: No Changes Eyes: No Pain, No Vision change, No Conjunctivae inflammation, No Eyelid inflammation, No Other, No Redness ENT: No Ear pain, No Ear discharge, No Nose pain, No Nose discharge, No Nose congestion, No Mouth pain, No Mouth swelling, No Throat pain, No Throat swelling, No Other Cardiovascular: No Chest Pain, No Palpitations, No Orthopnea, No Paroxysmal Noc. Dyspnea, No Edema, No Lt Headedness, No Other Respiratory: No Cough, No Dry; Shortness of breath; No SOB with excertion, No Wheezing, No Hemoptysis, No Pleuritic Pain, No Sputum, No Other Gastrointestinal: Nausea; No Vomiting; Abdominal Pain; No Diarrhea, No Constipation, No Melena, No Hematochezia, No Other Genitourinary: No Dysuria, No Frequency, No Incontinence, No Hematuria, No Retention, No Other Musculoskeletal: No other, No neck pain, No shoulder pain, No arm pain, No back pain, No hand pain, No leg pain, No foot pain Skin: No Rash, No Lesions, No Jaundice, No Bruising, No Other Objective Vitals Vital Signs Date Time Temp Pulse Resp B/P (MAP) Pulse Ox O2 Delivery O2 Flow Rate FiO2 05/20/24 09:00 97.5 97 16 126/63 (84) 100 97.5 05/19/24 20:00 Room Air* 0 21 Intake/Output Intake and Output 05/20/24 07:00 Intake Total 1900 ml Balance 1900 ml Intake Oral 1900 ml # Voids 9 Medications Current Medications Medications Dose Ordered Sig/Kurt Route Start Time Stop Time Status Last Admin Dose Admin Ceftriaxone Sodium 50 ml @ 100 mls/hr DAILY@09 IV 05/12/24 09:00 05/20/24 09:01 100 MLS/HR Ibuprofen 600 mg Q6HP PRN PO 05/11/24 21:00 05/20/24 09:24 600 MG Acetaminophen/ Hydrocodone Bitart 1 tab Q4HP PRN PO 05/11/24 21:00 05/20/24 00:55 1 TAB Ondansetron HCl 4 mg Q4HP PRN IV 05/11/24 21:00 05/14/24 18:12 4 MG Docusate Sodium 100 mg BIDPRN PRN PO 05/11/24 21:00 05/20/24 09:24 100 MG Morphine Sulfate 2 mg Q4HPRN PRN IV 05/11/24 21:00 05/12/24 16:47 2 MG Nitroglycerin 0.4 mg Q5MINP PRN SL 05/11/24 23:00 Morphine Sulfate 2 mg Q30M PRN IV 05/11/24 23:00 Bisacodyl 5 mg BIDP PRN PO 05/12/24 15:15 05/14/24 05:25 5 MG Sodium Chloride 1,000 ml @ 150 mls/hr Q6H40M IV 05/12/24 19:15 05/20/24 09:02 150 MLS/HR Lorazepam 0.5 mg BID PRN PO 05/14/24 14:30 05/20/24 03:09 0.5 MG Laboratory Results Laboratory Tests 05/20/24 06:37 Chemistry Test 05/20/24 06:37 Albumin 3.6 g/dL (3.2-4.8) Calcium Level 9.4 mg/dL (8.7-10.4) Total Protein 6.5 g/dL (5.7-8.2) LFT Test 05/20/24 06:37 Alanine Aminotransferase (ALT) 41 U/L (7-40) H Alkaline Phosphatase 132 U/L (46-116) H Aspartate Amino Transferase (AST) 33 U/L (13-40) Total Bilirubin 0.5 mg/dL (0.2-1.0) Urinalysis Test 05/11/24 19:20 Urine Color Yellow (Yellow) Urine Clarity Clear (Clear) Urine pH 5.5 (5.0-9.0) Urine Specific [place] 1.014 (1.001-1.035) Urine Protein Trace (Negative) H Urine Ketones 2+ (Negative) H Urine Blood Negative /uL (Negative) Urine Nitrite Negative (Negative) Urine Bilirubin Negative (Negative) Urine Urobilinogen Normal mg/dL (Negative) Urine Leukocyte Esterase Negative /uL (Negative) Urine RBC <1 /hpf (0 - 3) Urine WBC 4 /hpf (0 - 3) Urine Squamous Epithelial Cells Few /hpf (<5) Urine Bacteria None seen /hpf (None Seen) Urine Glucose Normal mg/dL (Normal) Microbiology Microbiology Date/Time Source Procedure Growth Status 05/15/24 11:00 Stool Clostridium difficile Toxin Assay - Final Complete 05/11/24 21:11 Blood Blood Culture - Final NO GROWTH AFTER 5 DAYS OF INCUBATION. Complete Labs and/or images reviewed: Labs reviewed by me, Image(s) reviewed by me Assessment/Plan Assessment/Plan Severe Sepsis secondary to acute colitis blood cultures negative Acute Colitis: IV Rocephin , IV Flagyl, vancomycin stopped per ID recommendation, GI consult by Dr. Harrington appreciated, ID consult by Dr. Bong Butler appreciated Acute thrombocytopenia platelets down to 37 k from 87 k Acute dehydration: IV fluids History of cholecystectomy C diff colitis p.o. vancomycin added to Rocephin and Flagyl, stool for C diff not collected as the stay in the hospital is more than three days, and not allowed per hospital policy Acute appendicitis ruled out Leukocytosis 44 K rule out hematological malignancy, Hematology consult by Dr. Paulson appreciated bone marrow biopsy result pending, WBC count went up to 87 K Patient was seen in [facility] five days ago and discharged with a diagnosis of rhabdomyolysis and acute gastritis Patient's mother lives in [facility] [phone] at bedside Time spent 55 minutes Advanced care planning time 20 minutes Start soft diet Patient is full code Severe Thrombocytopenia platelet count 30k: Transfuse 2 units of platelet Awaiting bone marrow biopsy report Complaining of right flank pain , kidney ultrasound normal Plan discussed with: Patient Date of Service: May 20, 2024 Billing Provider: DEBBIE NESBITT MD Common Visit Codes: [id number] INP/OBS CARE(HIGH) DEBBIE NESBITT MD May 20, 2024 12:31
--- NOTE | 2024-05-20 23:42 | DVHPN2 ---
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) Objective vital signs Vital Sign Date Time Temp Pulse Resp B/P (MAP) Pulse Ox O2 Delivery O2 Flow Rate FiO2 05/20/24 23:10 98.3 86 18 115/66 98.3 05/20/24 21:00 93 05/20/24 08:18 Room Air* 0 21 Total Intake and Output 05/19/24 05/19/24 05/20/24 15:00 23:00 07:00 Intake Total 1600 ml 300 ml Balance 1600 ml 300 ml medications Current Medications Medications Dose Ordered Sig/Kurt Route Start Time Stop Time Status Last Admin Dose Admin Ceftriaxone Sodium 50 ml @ 100 mls/hr DAILY@09 IV 05/12/24 09:00 05/20/24 09:01 100 MLS/HR Ibuprofen 600 mg Q6HP PRN PO 05/11/24 21:00 05/20/24 23:12 600 MG Acetaminophen/ Hydrocodone Bitart 1 tab Q4HP PRN PO 05/11/24 21:00 05/20/24 00:55 1 TAB Ondansetron HCl 4 mg Q4HP PRN IV 05/11/24 21:00 05/14/24 18:12 4 MG Docusate Sodium 100 mg BIDPRN PRN PO 05/11/24 21:00 05/20/24 09:24 100 MG Morphine Sulfate 2 mg Q4HPRN PRN IV 05/11/24 21:00 05/12/24 16:47 2 MG Nitroglycerin 0.4 mg Q5MINP PRN SL 05/11/24 23:00 Morphine Sulfate 2 mg Q30M PRN IV 05/11/24 23:00 Bisacodyl 5 mg BIDP PRN PO 05/12/24 15:15 05/14/24 05:25 5 MG Sodium Chloride 1,000 ml @ 150 mls/hr Q6H40M IV 05/12/24 19:15 05/20/24 09:02 150 MLS/HR Lorazepam 0.5 mg BID PRN PO 05/14/24 14:30 05/20/24 03:09 0.5 MG PHYSICAL EXAM: - GENERAL: Alert and oriented x 3. No acute distress. Well-nourished. - EYES: EOMI. Anicteric. - HENT: Moist mucous membranes. No scleral icterus. No cervical lymphadenopathy. - LUNGS: Clear to auscultation bilaterally. No accessory muscle use. - CARDIOVASCULAR: Regular rate and rhythm. No murmur. No JVD. - ABDOMEN: Soft, non-tender and non-distended. No palpable masses. - EXTREMITIES: No edema. Non-tender.?SKIN: No rashes or lesions. Warm. - NEUROLOGIC: No focal neurological deficits. CN II-XII grossly intact, but not individually tested. - PSYCHIATRIC: Cooperative. Appropriate mood and affect. 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 male with a past medical history of urachal cystectomy, who presents with acute abdominal pain. He was at another facility five days ago and was diagnosed with gastritis and sent home with antibiotics but has not improved. Symptoms have been worsening with associated shortness of breath and nausea. On admission, WBC count was elevated at 27.6 and has continued to rise, reaching up to 48 over the last three days of hospitalization. Platelets have decreased from 82 to 60. AST has improved from 122 to 70. ALT has improved from 237 to 70. Creatinine kinase is 222. Creatinine is 1.26 and has been improving since admission. CT abdomen shows scattered regions; evaluated for C. difficile colitis. Patient was empirically started on Flagyl and ceftriaxone. Vancomycin was added yesterday. Blood cultures are no growth to date. Vital signs are stable, no fevers. Chest X-ray shows no pulmonary disease. Patient was seen by Gastroenterology, who feels that C. difficile is on the differential, likely infectious versus inflammatory disease. 05/14: White count is still elevated and plateles are now in the 40s , unlikely patient is having an infectious colitis due to now diarrhea 05/15: sp aspirate of bone marrow, c.diff negative 05/17: worsening leukocytosis, monocytosis 05/18: white count is 77.5 , very monocyte predominate , favoring a noninfectious ideology Plan: - stop ceftriaxone - defer to hematology oncology for management of severe leukocytosis and elevated monocytes , management of AML vs CMML, blasts in blood - will monitor clinically off all antibiotics Plan discussed with: Patient Dietary Evaluation Review Comments: 1) Advance pt diet when medically feasible 2) Continue current plan of care Expected Outcomes/Goals: F/U in 2-3 days JUSTIN QUINTANA MD May 20, 2024 23:42
[2024-05-21] VITALS (10 sets, daily range): BP systolic 100–125; BP diastolic 69–78; PULSE 80–99; RESP 16–19; TEMP 97.1–98.5; O2SAT 93–98
[2024-05-21] MEDS: HYDROcodone-ACET 5/325MG TAB PO PRN (04:47)
[2024-05-21 07:20] LABS: Hemoglobin 12.1 g/dL (13.5-17.5)
[2024-05-21 07:24] LABS: Hematocrit 36.1 % (41.0-53.0); Mean Corpuscular Hemoglobin 29.5 pg (28.0-32.0); Mean Corpuscular Hgb Conc. 33.6 g/dL (32.0-36.0); Mean Corpuscular Volume 87.8 fL (80.0-100.0); Platelet Count (auto) 56 10^3/uL (140-450); Red Blood Cells 4.11 10^6/uL (4.5-5.90)
[2024-05-21 07:29] LABS: Anion Gap 10 (5-15); BUN/Creatinine Ratio 5.5 (10.0-20.0); Calcium 9.3 mg/dL (8.7-10.4); Carbon Dioxide 25 mmol/L (20-31); Chloride 106 mmol/L (98-107); Glucose 89 mg/dL (74-106); Sodium 141 mmol/L (136-145)
[2024-05-21 07:30] LABS: Albumin 3.7 g/dL (3.2-4.8); Bilirubin, Total 0.7 mg/dL (0.2-1.0); Total Protein 6.5 g/dL (5.7-8.2)
[2024-05-21 07:33] LABS: Alanine Aminotransferase 46 U/L (7-40); Alkaline Phosphatase 180 U/L (46-116); Aspartate Aminotransferase 45 U/L (13-40); Blood Urea Nitrogen 7 mg/dL (9-23); Potassium 3.4 mmol/L (3.5-5.1)
[2024-05-21 07:38] LABS: White Blood Cell 152.1 10^3/uL (4.4-10.8)
[2024-05-21 07:40] LABS: Band Neutrophils % (manual) 0; Basophils % (manual) 0 (0.0-2.0); Blast Cells 0; Metamyelocytes % 0; Myelocytes % 0; Promyelocytes % 0; Reactive Lymphocytes 0
[2024-05-21 09:56] LABS: Eosinophils % (manual) 2 (0-7); Lymphocytes % (manual) 4 (10.0-50.0); Monocytes % (manual) 91 (0-12)
[2024-05-21] MEDS: ALLOPURINOL 100 MG TAB PO SCH (12:14)
[2024-05-21] MEDS: hydroxyUREA 500 MG CAP PO SCH (12:14)
[2024-05-21] MEDS: LORazepam 0.5 MG TAB PO ONE (12:14)
[2024-05-21 12:41] LABS: Platelet Estimate Decreased
--- NOTE | 2024-05-21 13:11 | DVHPN2 ---
Progress Note - Dictate Date Seen: May 21, 2024 Has the PT tested + for MRSA If YES, has PT been informed?: Yes Medical Necessity Reason Pt with a Central, PICC or Fol: No Subjective Patient does complain of pain in the hips right more than the left. No abdominal pains or nausea vomiting. Patient's mother, sister and his significant other is with him in the room vital signs Vital Sign Date Time Temp Pulse Resp B/P (MAP) Pulse Ox O2 Delivery O2 Flow Rate FiO2 05/21/24 08:41 97.6 85 17 103/76 (85) 93 97.6 05/21/24 08:00 Room Air* 0 21 Total Intake and Output 05/20/24 05/20/24 05/21/24 15:00 23:00 07:00 Intake Total 125 ml 1100 ml 1956 ml Balance 125 ml 1100 ml 1956 ml medications Current Medications Medications Dose Ordered Sig/Kurt Route Start Time Stop Time Status Last Admin Dose Admin Ibuprofen 600 mg Q6HP PRN PO 05/11/24 21:00 05/21/24 06:55 600 MG Ondansetron HCl 4 mg Q4HP PRN IV 05/11/24 21:00 05/14/24 18:12 4 MG Docusate Sodium 100 mg BIDPRN PRN PO 05/11/24 21:00 05/20/24 09:24 100 MG Nitroglycerin 0.4 mg Q5MINP PRN SL 05/11/24 23:00 Bisacodyl 5 mg BIDP PRN PO 05/12/24 15:15 05/14/24 05:25 5 MG Sodium Chloride 1,000 ml @ 150 mls/hr Q6H40M IV 05/12/24 19:15 05/21/24 09:55 150 MLS/HR Lorazepam 0.5 mg BID PRN PO 05/14/24 14:30 05/21/24 04:18 0.5 MG Acetaminophen/ Hydrocodone Bitart 1 tab Q4HPRN PRN PO 05/21/24 04:30 05/21/24 04:47 1 TAB Hydroxyurea 1,000 mg BID PO 05/21/24 10:00 05/21/24 12:14 1,000 MG Allopurinol 300 mg DAILY PO 05/21/24 10:00 05/21/24 12:14 300 MG objective Head and neck: Unremarkable for any masses or neck nodes. Lungs: Clear Cardiovascular: Regular sinus rhythm Abdomen: No organomegaly, tenderness or ascites. Bowel sounds are present. Extremities: No clubbing edema cyanosis or calf tenderness. Skin: Unremarkable for petechia purpura ecchymosis Lymphadenopathy: None laboratory and microbiology Laboratory Tests 05/21/24 06:28 Test 05/21/24 06:28 Range/Units Serum Glucose 89 74-106 mg/dL Assessment/Plan 1. Acute myeloid leukemia with monocytic differentiation. The fish analysis was negative. The cytogenetics and the myeloid NGS studies are pending. The bone marrow core biopsy and aspirate showed hypercellular bone marrow (80- 90%), involved by acute myeloid leukemia with monocytic differentiation (70% blasts/blast equivalents) Mild reticulin fibrosis. Flow cytometry supports the diagnosis. Today's CBC showed a white count of 152.1 hemoglobin 12.1 platelets 22117 Potassium 3.4 GFR 72 uric acid is 9.6 calcium 9.3 AST 45 ALT 46 alkaline phosphatase 180 total protein 6.5 albumin 3.7 2. Colitis with C. difficile Plan: I did discuss with the patient and his family about his diagnosis and the need for transfer him to a higher level of care. The patient and the family understand very well. Once the bed is available at a higher level of care the patient will be transferred. At present Dr. Nisha brito at [facility] has accepted him The patient needs intense chemotherapy for acute myeloid leukemia I have talked with the nurse also The patient is started on hydroxyurea 1000 mg p.o. Twice a day to help control the white cells Dietary Evaluation Review Comments: 1) Advance pt diet when medically feasible 2) Continue current plan of care Expected Outcomes/Goals: F/U in 2-3 days Plan discussed with: Patient (mother, sister, significant other), Other SHELBI BARRON MD May 21, 2024 13:11
--- NOTE | 2024-05-21 13:24 | DVHPN2 ---
Reviewed: Care Plan, H&P, Labs, Medications, Previous Orders, Radiology Changes from previous H/P or p: No Changes Eyes: No Pain, No Vision change, No Conjunctivae inflammation, No Eyelid inflammation, No Other, No Redness ENT: No Ear pain, No Ear discharge, No Nose pain, No Nose discharge, No Nose congestion, No Mouth pain, No Mouth swelling, No Throat pain, No Throat swelling, No Other Cardiovascular: No Chest Pain, No Palpitations, No Orthopnea, No Paroxysmal Noc. Dyspnea, No Edema, No Lt Headedness, No Other Respiratory: No Cough, No Dry; Shortness of breath; No SOB with excertion, No Wheezing, No Hemoptysis, No Pleuritic Pain, No Sputum, No Other Gastrointestinal: Nausea; No Vomiting; Abdominal Pain; No Diarrhea, No Constipation, No Melena, No Hematochezia, No Other Genitourinary: No Dysuria, No Frequency, No Incontinence, No Hematuria, No Retention, No Other Musculoskeletal: No other, No neck pain, No shoulder pain, No arm pain, No back pain, No hand pain, No leg pain, No foot pain Skin: No Rash, No Lesions, No Jaundice, No Bruising, No Other Objective Vitals Vital Signs Date Time Temp Pulse Resp B/P (MAP) Pulse Ox O2 Delivery O2 Flow Rate FiO2 05/21/24 13:00 97.9 98 18 113/78 (90) 96 97.9 05/21/24 08:00 Room Air* 0 21 Intake/Output Intake and Output 05/21/24 07:00 Intake Total 3181 ml Balance 3181 ml Intake Oral 1900 ml IV Total 125 ml Blood Product 578 ml Other 578 ml # Voids 9 # Bowel Movements 1 Medications Current Medications Medications Dose Ordered Sig/Kurt Route Start Time Stop Time Status Last Admin Dose Admin Ibuprofen 600 mg Q6HP PRN PO 05/11/24 21:00 05/21/24 06:55 600 MG Ondansetron HCl 4 mg Q4HP PRN IV 05/11/24 21:00 05/14/24 18:12 4 MG Docusate Sodium 100 mg BIDPRN PRN PO 05/11/24 21:00 05/20/24 09:24 100 MG Nitroglycerin 0.4 mg Q5MINP PRN SL 05/11/24 23:00 Bisacodyl 5 mg BIDP PRN PO 05/12/24 15:15 05/14/24 05:25 5 MG Sodium Chloride 1,000 ml @ 150 mls/hr Q6H40M IV 05/12/24 19:15 05/21/24 09:55 150 MLS/HR Lorazepam 0.5 mg BID PRN PO 05/14/24 14:30 05/21/24 04:18 0.5 MG Acetaminophen/ Hydrocodone Bitart 1 tab Q4HPRN PRN PO 05/21/24 04:30 05/21/24 04:47 1 TAB Hydroxyurea 1,000 mg BID PO 05/21/24 10:00 05/21/24 12:14 1,000 MG Allopurinol 300 mg DAILY PO 05/21/24 10:00 05/21/24 12:14 300 MG Laboratory Results Laboratory Tests 05/21/24 06:28 Chemistry Test 05/21/24 06:28 Albumin 3.7 g/dL (3.2-4.8) Calcium Level 9.3 mg/dL (8.7-10.4) Total Protein 6.5 g/dL (5.7-8.2) LFT Test 05/21/24 06:28 Alanine Aminotransferase (ALT) 46 U/L (7-40) H Alkaline Phosphatase 180 U/L (46-116) H Aspartate Amino Transferase (AST) 45 U/L (13-40) H Total Bilirubin 0.7 mg/dL (0.2-1.0) Urinalysis Test 05/11/24 19:20 Urine Color Yellow (Yellow) Urine Clarity Clear (Clear) Urine pH 5.5 (5.0-9.0) Urine Specific [place] 1.014 (1.001-1.035) Urine Protein Trace (Negative) H Urine Ketones 2+ (Negative) H Urine Blood Negative /uL (Negative) Urine Nitrite Negative (Negative) Urine Bilirubin Negative (Negative) Urine Urobilinogen Normal mg/dL (Negative) Urine Leukocyte Esterase Negative /uL (Negative) Urine RBC <1 /hpf (0 - 3) Urine WBC 4 /hpf (0 - 3) Urine Squamous Epithelial Cells Few /hpf (<5) Urine Bacteria None seen /hpf (None Seen) Urine Glucose Normal mg/dL (Normal) Microbiology Microbiology Date/Time Source Procedure Growth Status 05/15/24 11:00 Stool Clostridium difficile Toxin Assay - Final Complete 05/11/24 21:11 Blood Blood Culture - Final NO GROWTH AFTER 5 DAYS OF INCUBATION. Complete Labs and/or images reviewed: Labs reviewed by me, Image(s) reviewed by me Assessment/Plan Assessment/Plan Acute myeloid leukemia with monocytic differentiation WBC 151 K, Oncology Dr. Paulson recommended transfer to higher level of care Severe Sepsis secondary to acute colitis blood cultures negative Acute Colitis: IV Rocephin , IV Flagyl, vancomycin stopped per ID recommendation, GI consult by Dr. Harrington appreciated, ID consult by Dr. Bong Butler appreciated Acute thrombocytopenia platelets down to 37 k from 87 k Acute dehydration: IV fluids History of cholecystectomy C diff colitis p.o. vancomycin added to Rocephin and Flagyl, stool for C diff not collected as the stay in the hospital is more than three days, and not allowed per hospital policy Acute appendicitis ruled out Patient is full code Severe Thrombocytopenia platelet count 30k: Transfuse 2 units of platelet, improved to 56 k Discussed the diagnosis prognosis and plan for transfer to higher level of care with the patient and his mother family members at the bedside Plan discussed with: Patient Date of Service: May 21, 2024 Billing Provider: DEBBIE NESBITT MD Common Visit Codes: [id number] INP/OBS CARE(HIGH) DEBBIE NESBITT MD May 21, 2024 13:24
--- NOTE | 2024-05-21 13:29 | DVHDS2 ---
Discharge Summary Date of Admission May 11, 2024 at 22:54 Date of Discharge: May 21, 2024 Admitting Diagnosis Generalized weakness Wounds: None Labs/Diagnostic Data: Laboratory Results Test 05/21/24 06:28 05/17/24 05:16 05/16/24 10:38 05/15/24 11:00 White Blood Count 152.1 10^3/uL (4.4-10.8) Red Blood Count 4.11 10^6/uL (4.5-5.90) Hemoglobin 12.1 g/dL (13.5-17.5) Hematocrit 36.1 % (41.0-53.0) Mean Corpuscular Volume 87.8 fL (80.0-100.0) Mean Corpuscular Hemoglobin 29.5 pg (28.0-32.0) Mean Corpuscular Hemoglobin Concent 33.6 g/dL (32.0-36.0) Red Cell Distribution Width 15.0 % (11.8-14.3) Platelet Count 56 10^3/uL (140-450) Mean Platelet Volume 7.8 fL (6.9-10.8) Neutrophils (%) (Auto) % (37.0-80.0) Lymphocytes (%) (Auto) % (10.0-50.0) Monocytes (%) (Auto) % (0.0-12.0) Basophils (%) (Auto) % (0.0-2.0) Neutrophils # (Auto) 10 ^3/uL (1.6-8.6) Lymphocytes # (Auto) 10 ^3/uL (0.4-5.4) Monocytes # (Auto) 10 ^3/uL (0-1.3) Differential Total Cells Counted 100.0 (100) Neutrophils % (Manual) 3 (37.0-80.0) Band Neutrophils % (Manual) 0 Lymphocytes % (Manual) 4 (10.0-50.0) Monocytes % (Manual) 91 (0-12) Eosinophils % (Manual) 2 (0-7) Basophils % (Manual) 0 (0.0-2.0) Metamyelocytes % (manual) 0 Myelocytes % (Manual) 0 Promyelocytes % (Manual) 0 Blast Cells % (Manual) 0 Reactive Lymphocytes 0 Platelet Estimate Decreased Sodium Level 141 mmol/L (136-145) Potassium Level 3.4 mmol/L (3.5-5.1) Chloride Level 106 mmol/L (98-107) Carbon Dioxide Level 25 mmol/L (20-31) Anion Gap 10 (5-15) Blood Urea Nitrogen 7 mg/dL (9-23) Creatinine 1.27 mg/dL (0.700-1.30) Glomerular Filtration Rate Calc 72 mL/min (>90) BUN/Creatinine Ratio 5.5 (10.0-20.0) Serum Glucose 89 mg/dL (74-106) Uric Acid 9.6 mg/dL (3.7-9.2) Calcium Level 9.3 mg/dL (8.7-10.4) Total Bilirubin 0.7 mg/dL (0.2-1.0) Aspartate Amino Transferase (AST) 45 U/L (13-40) Alanine Aminotransferase (ALT) 46 U/L (7-40) Alkaline Phosphatase 180 U/L (46-116) Total Protein 6.5 g/dL (5.7-8.2) Albumin 3.7 g/dL (3.2-4.8) Nucleated Red Blood Cells 1.0 % Red Blood Cell Morphology Normal Stool Occult Blood Negative (Negative) Stool Occult Blood Sample #3 (Negative) Stool for White Cells Rare Test 05/14/24 14:30 05/14/24 06:00 05/12/24 08:54 05/11/24 19:20 Prothrombin Time 12.4 sec (9.3-11.8) Prothrombin Time INR 1.18 (0.9-1.15) Activated Partial Thromboplast Time 31.5 SEC (24.5-34.5) C-Reactive Protein High Sensitivity 8.90 mg/dL (<1.0) Hepatitis A Antibody Total Positive (Negative) Hepatitis B Surface Antigen Negative (Negative) Hepatitis B Surface Antibody Negative (Negative) Hepatitis B Core Total Antibody Negative (Negative) Hepatitis C Antibody Negative (Negative) Creatine Kinase 222 U/L (46-171) Urine Color Yellow (Yellow) Urine Clarity Clear (Clear) Urine pH 5.5 (5.0-9.0) Urine Specific [place] 1.014 (1.001-1.035) Urine Protein Trace (Negative) Urine Ketones 2+ (Negative) Urine Blood Negative /uL (Negative) Urine Nitrite Negative (Negative) Urine Bilirubin Negative (Negative) Urine Urobilinogen Normal mg/dL (Negative) Urine Leukocyte Esterase Negative /uL (Negative) Urine RBC <1 /hpf (0 - 3) Urine WBC 4 /hpf (0 - 3) Urine Squamous Epithelial Cells Few /hpf (<5) Urine Bacteria None seen /hpf (None Seen) Urine Glucose Normal mg/dL (Normal) Test 05/11/24 14:40 Large Platelets Few Troponin I High Sensitivity 6 ng/L (</=54) B-Type Natriuretic Peptide 20.24 pg/mL (0-100) Lipase 28 U/L (12-53) Other Laboratory Tests 05/21/24 06:28 Brief Hx & Hospital Course: 44-year-old male admitted for generalized weakness found to have acute colitis with C diff positive started on Rocephin Flagyl and vancomycin white count kept on going up every day from the time of admission and reached up to 151 k at the time of transfer. Patient has had bone marrow biopsy seen by oncologist Dr. Paulson who advised the patient has acute myeloid leukemia with monocytic differentiation and transfer to higher level of care for treatment. Vital signs are stable with the time of transfer. Afebrile discussed with the family the patient and the mother about the transfer and the recommendation of the oncologist and they agreed General condition stable but guarded at the time of transfer Consults/Reason for consult Roll Repairer Dr. Paulson Operations or Procedures CT abdomen pelvis without contrast Condition at Discharge: Fair Final Diagnosis/Problems List Acute myeloid leukemia with monocytic differentiation WBC 151 K, Oncology Dr. Paulson recommended transfer to higher level of care Severe Sepsis secondary to acute colitis blood cultures negative Acute Colitis: IV Rocephin , IV Flagyl, vancomycin stopped per ID recommendation, GI consult by Dr. Harrington appreciated, ID consult by Dr. Bong Butler appreciated Acute thrombocytopenia platelets down to 37 k from 87 k Acute dehydration: IV fluids History of cholecystectomy C diff colitis p.o. vancomycin added to Rocephin and Flagyl, stool for C diff not collected as the stay in the hospital is more than three days, and not allowed per hospital policy Acute appendicitis ruled out Patient is full code Severe Thrombocytopenia platelet count 30k: Transfuse 2 units of platelet, improved to 56 k Discharge Disposition: Acute Care Facility Discharge Instruct/Medications Diet: Cardiac 2g Na,low cholest Activity: Light activity Follow Up/Referral: Per receiving hospital Medications: see list 39 (Time taken for discharge summary 39 minutes) Discharge Statement: "Patient was advised to return to the ER or call 911 if any headaches, dizziness, shortness of breath, chest pain, abdominal pain, bleeding, fevers, or worsening of medical condition. Patient was counseled about treatment plan, medications, possible side effects, patientverbalized understanding. All questions were answered to the best of my ability. This discharge took greater then 30 minutes in planning, reviewing documentation, counseling the patient, and discussing with other team members." ASSESSMENT ASSESSMENT Hospital Course Stable Assessment Acute myeloid leukemia with monocytic differentiation WBC 151 K, Oncology Dr. Paulson recommended transfer to higher level of care Severe Sepsis secondary to acute colitis blood cultures negative Acute Colitis: IV Rocephin , IV Flagyl, vancomycin stopped per ID recommendation, GI consult by Dr. Harrington appreciated, ID consult by Dr. Bong Butler appreciated Acute thrombocytopenia platelets down to 37 k from 87 k Acute dehydration: IV fluids History of cholecystectomy C diff colitis p.o. vancomycin added to Rocephin and Flagyl, stool for C diff not collected as the stay in the hospital is more than three days, and not allowed per hospital policy Acute appendicitis ruled out Patient is full code Severe Thrombocytopenia platelet count 30k: Transfuse 2 units of platelet, improved to 56 k Date of Service: May 21, 2024 Billing Provider: DEBBIE NESBITT MD Common Visit Codes: 77775-NFV/OBS DISCH DAY >30min DEBBIE NESBITT MD May 21, 2024 13:29
[2024-05-21 18:05] LABS: COVID19 ANTIGEN SOFIA FIA NEGATIVE (NEGATIVE)
--- NOTE | 2024-05-21 22:26 | DVHPN2 ---
Consult Progress Note Date Seen: May 21, 2024 Subjective Patient reports: Feels better (explained patient cancern diagnosis and no longer needing antibiotc) Objective vital signs Vital Sign Date Time Temp Pulse Resp B/P (MAP) Pulse Ox O2 Delivery O2 Flow Rate FiO2 05/21/24 17:00 97.9 99 17 116/71 (86) 95 97.9 05/21/24 08:00 Room Air* 0 21 Total Intake and Output 05/20/24 05/20/24 05/21/24 15:00 23:00 07:00 Intake Total 125 ml 1100 ml 1956 ml Balance 125 ml 1100 ml 1956 ml medications Current Medications Medications Dose Ordered Sig/Kurt Route Start Time Stop Time Status Last Admin Dose Admin Ibuprofen 600 mg Q6HP PRN PO 05/11/24 21:00 05/21/24 20:26 600 MG Ondansetron HCl 4 mg Q4HP PRN IV 05/11/24 21:00 05/14/24 18:12 4 MG Docusate Sodium 100 mg BIDPRN PRN PO 05/11/24 21:00 05/20/24 09:24 100 MG Nitroglycerin 0.4 mg Q5MINP PRN SL 05/11/24 23:00 Bisacodyl 5 mg BIDP PRN PO 05/12/24 15:15 05/14/24 05:25 5 MG Sodium Chloride 1,000 ml @ 150 mls/hr Q6H40M IV 05/12/24 19:15 05/21/24 16:35 150 MLS/HR Lorazepam 0.5 mg BID PRN PO 05/14/24 14:30 05/21/24 04:18 0.5 MG Acetaminophen/ Hydrocodone Bitart 1 tab Q4HPRN PRN PO 05/21/24 04:30 05/21/24 19:03 1 TAB Hydroxyurea 1,000 mg BID PO 05/21/24 10:00 05/21/24 22:13 1,000 MG Allopurinol 300 mg DAILY PO 05/21/24 10:00 05/21/24 12:14 300 MG PHYSICAL EXAM: - GENERAL: Alert and oriented x 3. No acute distress. Well-nourished. - EYES: EOMI. Anicteric. - HENT: Moist mucous membranes. No scleral icterus. No cervical lymphadenopathy. - LUNGS: Clear to auscultation bilaterally. No accessory muscle use. - CARDIOVASCULAR: Regular rate and rhythm. No murmur. No JVD. - ABDOMEN: Soft, non-tender and non-distended. No palpable masses. - EXTREMITIES: No edema. Non-tender.SKIN: No rashes or lesions. Warm. - NEUROLOGIC: No focal neurological deficits. CN II-XII grossly intact, but not individually tested. - PSYCHIATRIC: Cooperative. Appropriate mood and affect. laboratory and microbiology Laboratory Tests 05/21/24 06:28 Test 05/21/24 06:28 Range/Units Serum Glucose 89 74-106 mg/dL Problem List/Assessment/Plan Problems(with codes): (1) Leukocytosis (2) Thrombocytopenia (3) Abdominal pain (4) Generalized weakness (5) Leukocytosis, unspecified Problem List/Assessment/Plan ID Problem List: - acute abdominal pain - leukocytosis - thrombocytopenia - elevated liver enzymes - possible colitis - generalized weakness - AML vs CMML - Blasts in peripheral smear Assessment This is a 44 y.o. male with a past medical history of urachal cystectomy, who presents with acute abdominal pain. He was at another facility five days ago and was diagnosed with gastritis and sent home with antibiotics but has not improved. Symptoms have been worsening with associated shortness of breath and nausea. On admission, WBC count was elevated at 27.6 and has continued to rise, reaching up to 48 over the last three days of hospitalization. Platelets have decreased from 82 to 60. AST has improved from 122 to 70. ALT has improved from 237 to 70. Creatinine kinase is 222. Creatinine is 1.26 and has been improving since admission. CT abdomen shows scattered regions; evaluated for C. difficile colitis. Patient was empirically started on Flagyl and ceftriaxone. Vancomycin was added yesterday. Blood cultures are no growth to date. Vital signs are stable, no fevers. Chest X-ray shows no pulmonary disease. Patient was seen by Gastroenterology, who feels that C. difficile is on the differential, likely infectious versus inflammatory disease. 05/14: White count is still elevated and plateles are now in the 40s , unlikely patient is having an infectious colitis due to now diarrhea 05/15: sp aspirate of bone marrow, c.diff negative 05/17: worsening leukocytosis, monocytosis 05/18: white count is 77.5 , very monocyte predominate , favoring a noninfectious ideology Plan: - defer to hematology oncology for management of severe leukocytosis and elevated monocytes , management of AML vs CMML, blasts in blood - will monitor clinically off all antibiotics Plan discussed with: Patient Dietary Evaluation Review Comments: 1) Advance pt diet when medically feasible 2) Continue current plan of care Expected Outcomes/Goals: F/U in 2-3 days JUSTIN QUINTANA MD May 21, 2024 22:26
[2024-05-22 01:00] VITALS: BP 120/69; PULSE 82; RESP 18; TEMP 97.7; O2SAT 95
[2024-05-22 05:00] VITALS: BP 139/82; PULSE 113; RESP 18; TEMP 98.7; O2SAT 94
[2024-05-22 08:00] VITALS: PULSE 90; RESP 16; O2SAT 94
[2024-05-22 08:58] VITALS: BP 111/78; PULSE 90; RESP 16; TEMP 97.8; O2SAT 94
--- NOTE | 2024-05-22 09:06 | DVHPN2 ---
Progress Note - Dictate Date Seen: May 22, 2024 Has the PT tested + for MRSA If YES, has PT been informed?: Yes Medical Necessity Reason Pt with a Central, PICC or Fol: No Subjective Patient does complain of pain in the hips right more than the left. No abdominal pains or nausea vomiting. Patient had nosebleed. He is waiting to be transferred to higher level of care vital signs Vital Sign Date Time Temp Pulse Resp B/P (MAP) Pulse Ox O2 Delivery O2 Flow Rate FiO2 05/22/24 08:58 97.8 90 16 111/78 (89) 94 97.8 05/21/24 20:00 Room Air* 0 21 Total Intake and Output 05/21/24 05/21/24 05/22/24 15:00 23:00 07:00 Intake Total 775 ml 800 ml Balance 775 ml 800 ml medications Current Medications Medications Dose Ordered Sig/Kurt Route Start Time Stop Time Status Last Admin Dose Admin Ibuprofen 600 mg Q6HP PRN PO 05/11/24 21:00 05/22/24 05:10 600 MG Ondansetron HCl 4 mg Q4HP PRN IV 05/11/24 21:00 05/22/24 04:39 4 MG Docusate Sodium 100 mg BIDPRN PRN PO 05/11/24 21:00 05/20/24 09:24 100 MG Nitroglycerin 0.4 mg Q5MINP PRN SL 05/11/24 23:00 Bisacodyl 5 mg BIDP PRN PO 05/12/24 15:15 05/14/24 05:25 5 MG Sodium Chloride 1,000 ml @ 150 mls/hr Q6H40M IV 05/12/24 19:15 05/21/24 16:35 150 MLS/HR Lorazepam 0.5 mg BID PRN PO 05/14/24 14:30 05/21/24 04:18 0.5 MG Acetaminophen/ Hydrocodone Bitart 1 tab Q4HPRN PRN PO 05/21/24 04:30 05/22/24 00:52 1 TAB Hydroxyurea 1,000 mg BID PO 05/21/24 10:00 05/21/24 22:13 1,000 MG Allopurinol 300 mg DAILY PO 05/21/24 10:00 05/21/24 12:14 300 MG objective Head and neck: Unremarkable for any masses or neck nodes. Lungs: Clear Cardiovascular: Regular sinus rhythm Abdomen: No organomegaly, tenderness or ascites. Bowel sounds are present. Extremities: No clubbing edema cyanosis or calf tenderness. Skin: Unremarkable for petechia purpura ecchymosis Lymphadenopathy: None laboratory and microbiology Laboratory Tests 05/21/24 06:28 Test 05/21/24 06:28 Range/Units Serum Glucose 89 74-106 mg/dL Assessment/Plan 1. Acute myeloid leukemia with monocytic differentiation. The fish analysis was negative. The cytogenetics and the myeloid NGS studies are pending. The bone marrow core biopsy and aspirate showed hypercellular bone marrow (80- 90%), involved by acute myeloid leukemia with monocytic differentiation (70% blasts/blast equivalents) Mild reticulin fibrosis. Flow cytometry supports the diagnosis. Today's CBC showed a white count of 152.1 hemoglobin 12.1 platelets 15572 Potassium 3.4 GFR 72 uric acid is 9.6 calcium 9.3 AST 45 ALT 46 alkaline phosphatase 180 total protein 6.5 albumin 3.7 Labs from today 05/22/2024 are pending (CBC PT PTT) 2. Colitis with C. difficile Plan: Continue hydroxyurea a 1000 mg twice a day We will check a CBC PT PTT The patient has been accepted at [facility] and [facility] ( and Dr. Maurice respectively) The mother is thinking about signing against medical advice and driving to the higher level of care emergency room. She is getting very nervous about not being able to have a transfer Dietary Evaluation Review Comments: 1) Advance pt diet when medically feasible 2) Continue current plan of care Expected Outcomes/Goals: F/U in 2-3 days Plan discussed with: Patient, Other (Mother) SHELBI BARRON MD May 22, 2024 09:06
[2024-05-22 09:20] LABS: Platelet Count (auto) 37 10^3/uL (140-450)
[2024-05-22 09:26] LABS: Hematocrit 36.9 % (41.0-53.0); Hemoglobin 12.5 g/dL (13.5-17.5); Mean Corpuscular Hemoglobin 29.6 pg (28.0-32.0); Mean Corpuscular Volume 87.1 fL (80.0-100.0); Red Blood Cells 4.23 10^6/uL (4.5-5.90); Red Cell Distribution Width 14.8 % (11.8-14.3)
[2024-05-22 09:40] LABS: White Blood Cell 154.3 10^3/uL (4.4-10.8)
[2024-05-22 09:41] LABS: Basophils % (manual) 0 (0.0-2.0); Blast Cells 0; Metamyelocytes % 0; Myelocytes % 0; Promyelocytes % 0; Reactive Lymphocytes 0
[2024-05-22 10:00] LABS: Band Neutrophils % (manual) 1; Eosinophils % (manual) 2 (0-7); Lymphocytes % (manual) 2 (10.0-50.0); Monocytes % (manual) 89 (0-12); Platelet Estimate Decreased
[2024-05-22 12:10] VITALS: BP 111/78; PULSE 90; RESP 16; TEMP 97.8; O2SAT 94
--- NOTE | 2024-05-22 12:57 | DVHPN2 ---
Subjective Feels weak Reviewed: Care Plan, H&P, Labs, Medications, Previous Orders, Radiology Changes from previous H/P or p: No Changes Eyes: No Pain, No Vision change, No Conjunctivae inflammation, No Eyelid inflammation, No Other, No Redness ENT: No Ear pain, No Ear discharge, No Nose pain, No Nose discharge, No Nose congestion, No Mouth pain, No Mouth swelling, No Throat pain, No Throat swelling, No Other Cardiovascular: No Chest Pain, No Palpitations, No Orthopnea, No Paroxysmal Noc. Dyspnea, No Edema, No Lt Headedness, No Other Respiratory: No Cough, No Dry; Shortness of breath; No SOB with excertion, No Wheezing, No Hemoptysis, No Pleuritic Pain, No Sputum, No Other Gastrointestinal: Nausea; No Vomiting; Abdominal Pain; No Diarrhea, No Constipation, No Melena, No Hematochezia, No Other Genitourinary: No Dysuria, No Frequency, No Incontinence, No Hematuria, No Retention, No Other Musculoskeletal: No other, No neck pain, No shoulder pain, No arm pain, No back pain, No hand pain, No leg pain, No foot pain Skin: No Rash, No Lesions, No Jaundice, No Bruising, No Other Objective Vitals Vital Signs Date Time Temp Pulse Resp B/P (MAP) Pulse Ox O2 Delivery O2 Flow Rate FiO2 05/22/24 12:10 97.8 90 16 94 05/22/24 08:58 111/78 (89) 05/22/24 08:00 Room Air* 0 21 Intake/Output Intake and Output 05/22/24 07:00 Intake Total 1575 ml Balance 1575 ml Intake Oral 1575 ml # Voids 9 # Bowel Movements 4 Medications Current Medications Medications Dose Ordered Sig/Kurt Route Start Time Stop Time Status Last Admin Dose Admin Ibuprofen 600 mg Q6HP PRN PO 05/11/24 21:00 05/22/24 05:10 600 MG Ondansetron HCl 4 mg Q4HP PRN IV 05/11/24 21:00 05/22/24 04:39 4 MG Docusate Sodium 100 mg BIDPRN PRN PO 05/11/24 21:00 05/20/24 09:24 100 MG Nitroglycerin 0.4 mg Q5MINP PRN SL 05/11/24 23:00 Bisacodyl 5 mg BIDP PRN PO 05/12/24 15:15 05/14/24 05:25 5 MG Sodium Chloride 1,000 ml @ 150 mls/hr Q6H40M IV 05/12/24 19:15 05/21/24 16:35 150 MLS/HR Lorazepam 0.5 mg BID PRN PO 05/14/24 14:30 05/21/24 04:18 0.5 MG Acetaminophen/ Hydrocodone Bitart 1 tab Q4HPRN PRN PO 05/21/24 04:30 05/22/24 00:52 1 TAB Hydroxyurea 1,000 mg BID PO 05/21/24 10:00 05/22/24 09:51 1,000 MG Allopurinol 300 mg DAILY PO 05/21/24 10:00 05/22/24 09:50 300 MG Laboratory Results Laboratory Tests 05/21/24 06:28 05/22/24 08:54 Urinalysis Test 05/11/24 19:20 Urine Color Yellow (Yellow) Urine Clarity Clear (Clear) Urine pH 5.5 (5.0-9.0) Urine Specific [place] 1.014 (1.001-1.035) Urine Protein Trace (Negative) H Urine Ketones 2+ (Negative) H Urine Blood Negative /uL (Negative) Urine Nitrite Negative (Negative) Urine Bilirubin Negative (Negative) Urine Urobilinogen Normal mg/dL (Negative) Urine Leukocyte Esterase Negative /uL (Negative) Urine RBC <1 /hpf (0 - 3) Urine WBC 4 /hpf (0 - 3) Urine Squamous Epithelial Cells Few /hpf (<5) Urine Bacteria None seen /hpf (None Seen) Urine Glucose Normal mg/dL (Normal) Microbiology Microbiology Date/Time Source Procedure Growth Status 05/15/24 11:00 Stool Clostridium difficile Toxin Assay - Final Complete 05/11/24 21:11 Blood Blood Culture - Final NO GROWTH AFTER 5 DAYS OF INCUBATION. Complete Labs and/or images reviewed: Labs reviewed by me, Image(s) reviewed by me Assessment/Plan Assessment/Plan Acute myeloid leukemia with monocytic differentiation WBC 151 K, Oncology Dr. Paulson recommended transfer to higher level of care Severe Sepsis secondary to acute colitis blood cultures negative Acute Colitis: IV Rocephin , IV Flagyl, vancomycin stopped per ID recommendation, GI consult by Dr. Harrington appreciated, ID consult by Dr. Bong Butler appreciated Acute thrombocytopenia platelets down to 37 k from 87 k Acute dehydration: IV fluids History of cholecystectomy C diff colitis p.o. vancomycin added to Rocephin and Flagyl, stool for C diff not collected as the stay in the hospital is more than three days, and not allowed per hospital policy Acute appendicitis ruled out Patient is full code Severe Thrombocytopenia platelet count 30k: Transfuse 2 units of platelet, improved to 56 k Discussed the diagnosis prognosis and plan for transfer to higher level of care with the patient and his mother family members at the bedside Patient will be going to [facility] accepting Dr Dr. Camarillo. WBC 153 K on 05/22/2024 Plan discussed with: Patient, Other (mother) My Orders Orders - DEBBIE NESBITT MD Procedure Category Date Status Time Discharge DISCHARGE 05/21/24 Transmitted 13:24 Imaging Transfer ORDERS 05/21/24 Transmitted Request 15:05 Date of Service: May 22, 2024 Billing Provider: DEBBIE NESBITT MD Common Visit Codes: [id number] INP/OBS CARE(HIGH) DEBBIE NESBITT MD May 22, 2024 12:57
[2024-05-22 13:02] VITALS: BP 113/77; PULSE 106; RESP 19; TEMP 97.8; O2SAT 95
[2024-05-22 14:44] LABS: INR 1.28 (0.9-1.15); Partial Thromboplastin Time 33.9 SEC (24.5-34.5); Prothrombin Time 13.3 sec (9.3-11.8)
--- NOTE | 2024-05-22 19:51 | DVHPN2 ---
Consult Progress Note Date Seen: May 22, 2024 Subjective Patient reports: No new complaints (no questions about being transferred , genralized fatiuge ) Objective vital signs Vital Sign Date Time Temp Pulse Resp B/P (MAP) Pulse Ox O2 Delivery O2 Flow Rate FiO2 05/22/24 13:02 97.8 106 19 113/77 (89) 95 97.8 05/22/24 08:00 Room Air* 0 21 Total Intake and Output 05/21/24 05/21/24 05/22/24 15:00 23:00 07:00 Intake Total 775 ml 800 ml Balance 775 ml 800 ml medications PHYSICAL EXAM: - GENERAL: Alert and oriented x 3. No acute distress. Well-nourished. - EYES: EOMI. Anicteric. - HENT: Moist mucous membranes. No scleral icterus. No cervical lymphadenopathy. - LUNGS: Clear to auscultation bilaterally. No accessory muscle use. - CARDIOVASCULAR: Regular rate and rhythm. No murmur. No JVD. - ABDOMEN: Soft, non-tender and non-distended. No palpable masses. - EXTREMITIES: No edema. Non-tender.SKIN: No rashes or lesions. Warm. - NEUROLOGIC: No focal neurological deficits. CN II-XII grossly intact, but not individually tested. - PSYCHIATRIC: Cooperative. Appropriate mood and affect. laboratory and microbiology Laboratory Tests 05/22/24 08:54 05/21/24 06:28 Test 05/21/24 06:28 Range/Units Serum Glucose 89 74-106 mg/dL Problem List/Assessment/Plan Problems(with codes): (1) Leukocytosis (2) Thrombocytopenia (3) Abdominal pain (4) Generalized weakness (5) Leukocytosis, unspecified Problem List/Assessment/Plan ID Problem List: - acute abdominal pain - leukocytosis - thrombocytopenia - elevated liver enzymes - possible colitis - generalized weakness - AML vs CMML - Blasts in peripheral smear Assessment This is a 44 y.o. male with a past medical history of urachal cystectomy, who presents with acute abdominal pain. He was at another facility five days ago and was diagnosed with gastritis and sent home with antibiotics but has not improved. Symptoms have been worsening with associated shortness of breath and nausea. On admission, WBC count was elevated at 27.6 and has continued to rise, reaching up to 48 over the last three days of hospitalization. Platelets have decreased from 82 to 60. AST has improved from 122 to 70. ALT has improved from 237 to 70. Creatinine kinase is 222. Creatinine is 1.26 and has been improving since admission. CT abdomen shows scattered regions; evaluated for C. difficile colitis. Patient was empirically started on Flagyl and ceftriaxone. Vancomycin was added yesterday. Blood cultures are no growth to date. Vital signs are stable, no fevers. Chest X-ray shows no pulmonary disease. Patient was seen by Gastroenterology, who feels that C. difficile is on the differential, likely infectious versus inflammatory disease. 05/14: White count is still elevated and plateles are now in the 40s , unlikely patient is having an infectious colitis due to now diarrhea 05/15: sp aspirate of bone marrow, c.diff negative 05/17: worsening leukocytosis, monocytosis 05/18: white count is 77.5 , very monocyte predominate , favoring a noninfectious ideology 05/22: whitecount is 100.543 and on meds for this Plan: - defer to hematology oncology for management of severe leukocytosis and elevated monocytes , management of AML vs CMML, blasts in blood - will monitor clinically off all antibiotics Plan discussed with: Other Dietary Evaluation Review Comments: 1) Advance pt diet when medically feasible 2) Continue current plan of care Expected Outcomes/Goals: F/U in 2-3 days JUSTIN QUINTANA MD May 22, 2024 19:51
== END 2024-05-22 16:00 | disposition short-term general hospital (02) | DRG 872 ==
LOC: ER 13:29 → OVERFLOW 22:54 → WEST WING 22:56
PROVIDERS: ADMIT Nurse Practitioner Family; ATTEND Family Medicine
PROC: 07DT3ZX Extraction of Bone Marrow, Percutaneous Approach, Diagnostic (ICD-10-PCS; principal; 2024-05-14)
PROC: 30233R1 Transfusion of Nonautologous Platelets into Peripheral Vein, Percutaneous Approach (ICD-10-PCS; 2024-05-20)
DX: A41.9 Sepsis, unspecified organism (principal); A04.72 Enterocolitis due to Clostridium difficile, not specified as recurrent; M62.82 Rhabdomyolysis; C92.00 Acute myeloblastic leukemia, not having achieved remission; R65.20 Severe sepsis without septic shock; E86.0 Dehydration; K59.00 Constipation, unspecified; Z20.822 Contact with and (suspected) exposure to COVID-19; G89.29 Other chronic pain; M54.9 Dorsalgia, unspecified; D69.6 Thrombocytopenia, unspecified; Z90.49 Acquired absence of other specified parts of digestive tract; Z80.41 Family history of malignant neoplasm of ovary; Z80.7 Family history of other malignant neoplasms of lymphoid, hematopoietic and related tissues
CPT/HCPCS: 10005; 36415; 71045; 72192; 74176; 76775; 77012; 80053; 81001; 82270; 82550; 83690; 83880; 84484; 84550; 85007; 85027; 85048; 85060; 85610; 85730; 86141; 86704; 86706; 86708; 86803; 86850; 86900; 86901; 87040; 87340; 87426; 87493; 93005; G0378; J2003; J2250; J2405; J2543; J3490; Q0162